=== PATIENT | female | born 1990 | race Caucasian/White ===

== ENCOUNTER 2023-08-01 07:33 | Inpatient (IN) | payer BC, SELFPAY ==
[2023-08-01] VITALS (24 sets, daily range): BP systolic 111–128; BP diastolic 63–80; PULSE 65–85; RESP 16–18; TEMP 36.4–37; O2SAT 94–100; BMI 29.2
[2023-08-01 08:19] LABS: Basophil# 0.05 X10^3/uL; Basophil% 0.4 % (0-1); Eosinophil# 0.02 X10^3/uL; Eosinophils% 0.1 % (0-5); Hematocrit 36.4 % (37-47); Hemoglobin 12.3 g/dL (12.0-15.0); Lymphocyte % 13.2 % (19-41); Mean Corp Hgb Conc 33.8 g/dL (32-36); Mean Corpuscular Hgb 29.3 pg (27.0-32.0); Mean Corpuscular Volume 86.7 fL (81-99); Mean Platelet Vol. 10.9 fl (6.2-12.0); Monocyte# 0.66 X10^3/uL; Monocyte% 4.8 % (0-10); NRBC Flagged by Analyzer 0 % (0-5); Neutrophil # 11.04 X10^3/uL (2.7-7.7); Neutrophil % 81.1 % (47-70); Platelet Count 191 K/mm3 (150-450); RBC Distribution Width SD 40.6 fl (35.1-43.9); White Blood Count 13.6 K/mm3 (4.4-11.0)
[2023-08-01 08:52] LABS: Syphilis Antibodies Non-reactive
--- NOTE | 2023-08-01 09:06 | EX.PCM.OBRPT ---
Maternal Data Information Final CIARA: 07/31/23 Gestational age: 40 1/7 Vaginal Delivery Maternal Presentation Maternal Presentation: Active Labor Operative Information Date of Procedure: 08/01/23 Pre-Operative Diagnosis: labor Post-Operative Diagnosis: same Surgery / Procedure Performed: Spontaneous Vaginal Delivery Type of Anesthesia: None Drain: - (none) Estimated Blood Loss: 200 Time of Delivery: 08:39 Findings Description of Procedure: A vigorous female was delivered CAMERON over an intact perineum. A loose nuchal cord x2 was easily reduced the remainder the infant was delivered with maternal pushing and gentle traction only in less than 15 seconds. The Pitocin infusion was initiated for active management of the third stage. The cord was clamped and cut after 1 minute. The infant was attended to by the waiting nursing staff. The placenta was delivered spontaneously and intact. The cervix and vagina were intact. Sponge and needle counts were correct. A vaginal sweep was completed by me. Presentation: CAMERON Amniotic Membrane Rupture Type: Spontaneous Amniotic Fluid Description: Lightly stained meconium Placental Delivery Description: Spontaneous Placenta Disposition: [facility] Cord Vessel Description: 3 Vessels Cord Entanglement: Around neck x 2, loose Nuchal Cord Compression: Without compression Cord Gases: ABG Infant A Gender: Female (1 minute): 8 (5 minute): 9 Delayed Cord Clamping: Yes Post Vaginal Delivery Medications Given After Delivery: IV Pitocin Episiotomy Description: None Laceration: None Complication Complications: None
[2023-08-01] MEDS: Ibuprofen 600 MG Tablet PO ×2 (10:59→17:06)
--- NOTE | 2023-08-01 12:13 | PCM.HP.OB ---
HPI - General General Date of Admission: 08/01/23 Date of Service: 08/01/23 Chief Complaint: labor HPI Narrative SEGUN DE LA CRUZ, is a 33 F 4 para 3 who presented at 40 1/7 weeks gestation in spontaneous labor. She denied any vaginal bleeding or leaking of fluid. is uncomplicated to date Maternal Data Information Final CIARA: 07/31/23 Gestational age: 40 1/7 PFSH PFSH Medical History no medical history Allergy/AdvReac Type Severity Reaction Status Date / Time No Known Allergies Allergy Verified 08/01/23 09:17 Family History no significant family his Surgical History no surgical history ROS Constitutional Constitutional: Denies fatigue, fever(s) or malaise Eyes Eyes: Denies change in vision ENT HEENT: Denies dizziness or headache(s) Cardiovascular Cardiovascular: Denies chest pain, dyspnea or lightheadedness Respiratory/Chest Respiratory/Chest: Denies cough or dyspnea Gastrointestinal Gastrointestinal: Denies change in bowel habits Genitourinary Genitourinary: Denies burning urination or genital lesions Integumentary Integumentary: Denies rash Neurologic Neurologic: Denies confusion, dizziness, headache(s), numbness or weakness Vital Signs Vital Signs Vital Signs: 08/01/23 07:14 08/01/23 07:14 08/01/23 07:18 Pulse Rate 74 Blood Pressure 122/78 H BP Systolic 122 BP Diastolic 78 Pulse Ox 100 08/01/23 07:18 08/01/23 07:19 08/01/23 07:19 Pulse Rate 78 69 Blood Pressure BP Systolic BP Diastolic Pulse Ox 100 08/01/23 08:14 08/01/23 08:14 08/01/23 08:15 Pulse Rate 83 82 Blood Pressure BP Systolic BP Diastolic Pulse Ox 94 08/01/23 08:15 08/01/23 08:55 08/01/23 08:55 Pulse Rate 70 Blood Pressure 113/69 BP Systolic 113 BP Diastolic 69 Pulse Ox 95 08/01/23 09:09 08/01/23 09:09 08/01/23 09:24 Pulse Rate 72 Blood Pressure 111/65 111/69 BP Systolic 111 111 BP Diastolic 65 69 Pulse Ox 08/01/23 09:24 08/01/23 09:39 08/01/23 09:39 Pulse Rate 68 72 Blood Pressure 112/71 BP Systolic 112 BP Diastolic 71 Pulse Ox 08/01/23 09:54 08/01/23 09:54 08/01/23 10:09 Pulse Rate 69 Blood Pressure 120/79 128/80 H BP Systolic 120 128 BP Diastolic 79 80 Pulse Ox 08/01/23 10:09 08/01/23 10:24 08/01/23 10:24 Pulse Rate 69 69 Blood Pressure 116/76 BP Systolic 116 BP Diastolic 76 Pulse Ox 08/01/23 10:39 08/01/23 10:39 Pulse Rate 70 Blood Pressure 121/79 H BP Systolic 121 BP Diastolic 79 Pulse Ox Weight Weight: 92.533 kg Body Mass Index (BMI) 29.2 Physical Exam Const alert and no apparent distress General Appearance: cooperative HEENT normocephalic Resp normal respiratory effort Cardio regular rate GI soft to palpation GI Narrative: gravid, nontender, appropriate for gestational age Extremity no calf tenderness General Extremity: edema Skin no wounds Rashes: No rashes noted Psych activity/motor behavior normal Labs Labs Labs: Blood Type B POSITIVE Antibody Screen NEGATIVE Hct 36.4 % (37-47) L Hgb 12.3 g/dL (12.0-15.0) Syphilis Total Ab Non-reactive Assessment & Plan (1) Spontaneous onset of labor: PLAN: Spontaneous onset of labor. Estimated weight is less than 4500 g clinically and pelvis clinically adequate for her to expect vaginal delivery. May have routine pain management measures in labor if desires. (2) 40 weeks gestation of :
[2023-08-02] MEDS: Ibuprofen 600 MG Tablet PO (00:36)
[2023-08-02 05:15] VITALS: BP 112/64; PULSE 65; PULSE 67; RESP 16; TEMP 36.3; O2SAT 97
[2023-08-02 09:10] VITALS: BP 102/66; PULSE 88; RESP 18; TEMP 36.8; O2SAT 96
[2023-08-02 09:25] VITALS: BP 96/65; PULSE 84; O2SAT 95
[2023-08-02 09:27] VITALS: BP 102/66; PULSE 81
--- NOTE | 2023-08-02 09:30 | PCM.PN.BLA ---
Progress Note Pain well controlled with average lochia. Assessment & Plan Assessment/Plan (1) (spontaneous vaginal delivery): PLAN: day #1 status post vaginal delivery. is breast-feeding and doing well. Patient is doing well and desires discharge home.
--- NOTE | 2023-08-02 09:36 | DS.PCM_ITS ---
Providers Date of Admission: 08/01/23 Primary Care Physician: Marni Primary Care Phys Reason For Visit: VAGINAL DELIVERY Diagnosis Discharge Diagnosis (1) (spontaneous vaginal delivery): Status: Acute Code(s): O80 - Encounter for full-term uncomplicated delivery Plan: day #1 status post vaginal delivery. is breast-feeding and doing well. Patient is doing well and desires discharge home. Medications at Discharge Home Medications docusate sodium 100 mg capsule (DOK) 100 mg PO BID PRN PRN constipation 20 days #30 CAPSULES 08/02/23 ibuprofen 600 mg tablet 600 mg PO Q6H PRN Pain 20 days #60 TABLETS 08/02/23 Hospital Course Operations None Summary of Care Provided Minutes Spent on Discharge: 13 Hospital Course: Patient admitted for spontaneous labor. She had an uneventful vaginal delivery on 08/01/2023. By 12 08/02/2023 she desired discharge home with routine instructions and follow-up. Weight / BMI Weight Weight: 92.533 kg Body Mass Index (BMI) 29.2 ABG / Lab / Microbiology Data 08/01/23 08:10 D/C Instructions May resume sexual activity in: 6 weeks Please Follow Up With: Kinsey eHrnandez MD When: Follow-up in our office in 1-2 in 6 weeks or as needed. Call [phone] or send a [employer] message. Meaningful Use Info Meaningful Use Diagnoses (Choose all that apply): None applicable Discharge Plan Admission Admit Date/Time: 08/01/23 07:33 Primary Reason for Your Visit: Vaginal deliery Attending Provider: Kinsey Hernandez Primary Care Provider: Care Marni Spencer Primary Discharge Orders/Prescriptions Prescriptions: New docusate sodium [DOK] 100 mg capsule 100 mg PO BID PRN PRN (Reason: constipation) 20 Days Qty: 30 1RF ibuprofen [ibuprofen] 600 mg tablet 600 mg PO Q6H PRN (Reason: Pain) 20 Days Qty: 60 1RF Referrals / Follow Up: Care PhysicianMarni Primary [Primary Care Provider] - Disposition Disposition (needs filled in before D/C Order can be placed): Home, Self Care
== END 2023-08-02 11:00 | disposition home or self-care (01) | DRG 807 ==
LOC: WPOUT 07:34 → WP 07:35
PROVIDERS: Admitting Provider Obstetrics & Gynecology; Referring Provider Obstetrics & Gynecology; Visit Provider Obstetrics & Gynecology
DX: O69.2XX0 Labor and delivery complicated by other cord entanglement, with compression, not applicable or unspecified (principal); Z37.0 Single live birth; O77.0 Labor and delivery complicated by meconium in amniotic fluid; Z3A.40 40 weeks gestation of pregnancy
CPT/HCPCS: 59025; 59050; 85025; 86780; 86850; 86900; 86901; 99221; G0378

== ENCOUNTER 2025-11-14 01:42 | Inpatient (IN) | payer BC, SELFPAY ==
[2025-11-14] VITALS (29 sets, daily range): BP systolic 107–125; BP diastolic 58–85; PULSE 66–88; RESP 14–16; TEMP 36.7; O2SAT 91–100; BMI 30.7
--- OUTSIDE RECORDS SUMMARY | 2025-11-14 01:23 | XMS RPT_ITS | CCD ---
Author Organization [facility] Care Team Providers Care Labor Mediator Name Role Phone Unavailable Primary Care Provider JUNIOR Bonilla DO Primary Care Physician [phone] JUNIOR GRANT DO Attending Unavailable JUNIOR GRANT DO Primary Care Unavailable Unavailable Primary Care Provider Unavailtacos e Care Physician, No Primary Primary Care Unava ilable Elie Urias Attending Unavailable Elie Urias Admitting Unavailable KALIE ELLINGTON Referring Unavailable SHERLEY ADAMSON Referring Unavailable VAL FORD Referring Unavailable JENNIFER LUTZ Attending Unavailable VAL FORD Referring Unavailable ELIE URIAS Attending Unavailable JENNIFER LUTZ Referring Unavailable KALIE ELLINGTON Attending Unavailable MINDY DELVALLE Attending Unavailable SHERLEY ADAMSON Attending Unavailable SHERLEY ADAMSON Referring Unavailable ELIE URIAS Attending Unavailable SHERLEY ADAMSON Referring Unavailable KALIE ELLINGTON Attending Unavailable Medications Current Medications Medication Drug Class(es) Dates Sig (Normalized) Sig (Original) docusate sodium 100 mg oral capsule (4 sources) Start: 08-02-2023 take 1 capsule by mouth twice daily as needed Docusate Sodium (Dok) 100 mg capsule Active 100 MG PO TWICE DAILY NEEDED August 02, 2023 12:00am Start: 09-13-2014 End: 01-23-2023 take 1 capsule by mouth every twelve hours as needed for constipation and constipation docusate sodium (COLACE) 100 mg capsule Indications: Constipation Take 1 capsule by mouth twice daily as needed. 60 capsule 2 09/13/2014 01/23/2023 Discontinued Comment on above: Take 1 capsule by [facility] twice daily as needed. ibuprofen 600 mg oral tablet (1 source) Nonsteroidal Anti-inflammatory Drug Start: 08-02-2023 take 600 mg by mouth every six hours Ibuprofen Active 600 MG PO EVERY 6 HOURS 60 August 02, 2023 12:00am lysine 1000 mg oral tablet (20 sources) Start: 12-01-2024 take 1 tablet by mouth twice daily lysine 1000 mg oral tablet See Instructions, 1 tab(s) Oral BID, 0 Refill(s) Start Date: 12/01/24 Status: Ordered Repeat number: 1 LYSINE ORAL Take by mouth. Active LYSINE ORAL Take by mouth. 0 Active Comment on above: Take by mouth. metroNIDAZOLE 500 mg oral tablet (1 source) Nitroimidazole Antimicrobial Start: 01-27-20 End: 02-03-20 take 1 tablet by mouth twice daily metroNIDAZOLE (FLAGYL) 500 mg tablet Indications: BV (bacterial vaginosis) Take 1 tablet by mouth twice daily for 7 days. 14 tablet 0 01/26/2023 02/02/2023 Active Comment on above: Take 1 tablet by mayo th twice daily for 7 days. multivitamin (CLASSIC ) 28 mg iron- 800 mcg tab(s) (20 sources) take 1 tablet by mouth once daily multivitamin (CLASSIC ) 28 mg iron- 800 mcg tab(s) Take 1 tablet by mouth once daily. Active take 1 tablet by mouth once miriam y multivitamin (CLASSIC ) 28 mg iron- 800 mcg tab(s) Take 1 tablet by mouth once daily. 0 Active Comment on above: Take 1 tablet by mayo th once daily. valACYclovir 500 mg oral tablet (5 sources) Herpesvirus Nucleoside Analog DNA Polymerase Inhibitor, Herpes Simplex Virus Nucleoside Analog DNA Polymerase Inhibitor, Herpes Zoster Virus Nucleoside Analog DNA Polymerase Inhibitor Start: End: take 1 tablet by mouth twice daily valACYclovir (VALTREX) 500 mg tablet Take 1 tablet by mouth two times a day. FOR 5 DAYS. 60 tablet 3 06/22/2025 10/20/2025 Active Vitafusion (1 source) Start: 5 Vitafusion Chewed, qDay, 0 Refill(s) Start Date: 12/01/24 Status: Ordered Repeat number: 1 Completed/Discontinued Medications Medication Drug Class(es) Dates Sig (Normalized) Sig (Original) aspirin 81 mg delayed release oral tablet (3 sources) Platelet Aggregation Inhibitor, Nonsteroidal Anti-inflammatory Drug Start: 03-31-2025 End: 06-02-2025 take 1 tablet by mouth once daily aspirin, enteric coated (ECOTRIN LOW STRENGTH) 81 mg EC tablet Indications: with uncertain dates, antepartum (HCC) Take 1 tablet by mouth once daily. 90 tablet 3 03/31/2025 06/02/2025 Discontinued (Other) Problems Active Problems Problem Classification Problem Date Documented Date Episodic/Chronic Immunizations and screening for infectious disease (10 sources) Patient encounter status; Translations: [Encounter for screening for human papillomavirus (HPV)] Episodic Inflammatory diseases of female pelvic organs (1 source) Bacterial vaginosis; Translations: [Acute vaginitis] Episodic Lymphadenitis (3 sources) Lymphadenopathy; Translations: [Enlarged lymph nodes, unspecified] Onset: 12-01-2024 12-01-2024 Episodic Malaise and fatigue (1 source) Malaise and fatigue; Translations: [Other malaise] 09-19-2024 Episodic Nonmalignant breast conditions (3 sources) Mastodynia; Translations: [Mastodynia] Onset: 07-04-2025 06-02-2025 Episodic Other female genital disorders (1 source) Pruritus of vagina; Translations: [Other specified noninflammatory disorders of vagina] Episodic Other and delivery including normal (20 sources) ; Translations: [Encounter for supervision of normal , unspecified, unspecified trimester] Onset: 01-22-2023 Resolved: 03-31-2025 Episodic Other screening for suspected conditions (not mental disorders or infectious disease) (2 sources) Encounter for screening for diabetes mellitus; Translations: [Encounter for screening for malformations] Onset: 07-21-2025 Episodic Prolonged (1 source) Gestation period, 41 weeks; Translations: [Post-term ] 07-31-2023 Episodic Residual codes; unclassified (5 sources) Gestation period, 16 weeks; Translations: [16 weeks gestation of ] Episodic Residual codes; unclassified (1 source) Gestation period, 20 weeks; Translations: [20 weeks gestation of ] Episodic Residual codes; unclassified (1 source) Gestation period, 24 weeks; Translations: [24 weeks gestation of ] Episodic Residual codes; unclassified (1 source) Gestation period, 29 weeks; Translations: [29 weeks gestation of ] Episodic Residual codes; unclassified (1 source) Gestation period, 34 weeks; Translations: [34 weeks gestation of ] 06-25-2023 Episodic Residual codes; unclassified (1 source) Gestation period, 36 weeks; Translations: [36 weeks gestation of ] 07-09-2023 Episodic Residual codes; unclassified (2 sources) Gestation period, 38 weeks; Translations: [38 weeks gestation of ] 07-17-2023 Episodic Residual codes; unclassified (1 source) Gestation period, 39 weeks; Translations: [39 weeks gestation of ] 07-30-2023 Episodic Residual codes; unclassified (1 source) Gestation period, 40 weeks; Translations: [40 weeks gestation of ] 08-01-2023 Episodic Residual codes; unclassified (1 source) 40 weeks gestation of ; Translations: [ state, incidental] 08-02-2023 Episodic Residual codes; unclassified (1 source) Gestation period, 12 weeks; Translations: [12 weeks gestation of ] 05-04-2025 Episodic Residual codes; unclassified (1 source) Gestation period, 21 weeks; Translations: [21 weeks gestation of ] 07-04-2025 Episodic Residual codes; unclassified (2 sources) Gestation period, 23 weeks; Translations: [23 weeks gestation of ] 07-21-2025 Episodic Residual codes; unclassified (1 source) 32 weeks gestation of ; Translations: [32 weeks gestation of (HCC)] Onset: 09-22-2025 Episodic Residual codes; unclassified (1 source) 30 weeks gestation of ; Translations: [30 weeks gestation of (HCC)] Onset: 09-08-2025 Episodic Residual codes; unclassified (1 source) 27 weeks gestation of ; Translations: [27 weeks gestation of (HCC)] Onset: 08-18-2025 Episodic Residual codes; unclassified (1 source) 23 weeks gestation of ; Translations: [23 weeks gestation of (HCC)] Onset: 07-21-2025 Episodic Residual codes; unclassified (1 source) 16 weeks gestation of ; Translations: [16 weeks gestation of (HCC)] Onset: 07-04-2025 Episodic Unclassified (2 sources) Spontaneous onset of labor; Translations: [Spontaneous onset of labor] 08-01-2023 Unclassified (1 source) Stool finding 12-01-2024 Unclassified (8 sources) [facility] Education - COMMON Onset: 03-31-2025 03-31-2025 Unclassified (8 sources) Education - [place] Onset: 03-31-2025 03-31-2025 Past or Other Problems Problem Classification Problem Date Documented Da te Episodic/Chronic Residual codes; unclassified (20 sources) Family history of hereditary disease; Translations: [Family history of other specified conditions] Onset: 01-22-2023 Episodic Residual codes; unclassified (1 source) 12 weeks gestation of ; Translations: [12 weeks gestation of (HCC)] Onset: 05-01-2025 Episodic Unclassified (2 sources) Patient encounter status 12-01-2024 Unclassified (2 sources) Breast pain, left 06-02-2025 Results Test Name Value Interpretation Reference Range Facil it CBC panel Auto (Bld)on 08-18 Erythrocyte distribution width (RBC) [Ratio] 13.2 % Normal 11.5-15.0 [facility] Comment on above: Order Comment: Raciel diaz Type: BLOOD SPECIMEN Ordering Facility: [facility] Address: [address] [place] [address] Performed By: #### 5 8410-2 #### [facility] CLIA [id number] [address] [place] [address] [place] Hematocrit (Bld) [Volume fraction] 34.4 % Low 36.0-46.0 [facility] Comment on above: Order Comment: Raciel diaz Type: BLOOD SPECIMEN Ordering Facility: [facility] Address: [address] [place] [address] Performed By: #### 5 8410-2 #### [facility] CLIA [id number] [address] [place] [address] [place] Hemoglobin (Bld) [Mass/Vol] 11.9 g/dL Normal 11.5-15.5 [facility] Comment on above: Order Comment: Raciel diaz Type: BLOOD SPECIMEN Ordering Facility: [facility] Address: [address] [place] [address] Performed By: #### 5 8410-2 #### [facility] CLIA [id number] [address] [place] [address] [place] MCH (RBC) [Entitic mass] 29.5 pg Normal 26.0-34.0 [facility] Comment on above: Order Comment: Speci men Type: BLOOD SPECIMEN Ordering Facility: [facility] Address: [address] [place] [address] Performed By: #### 5 8410-2 #### [facility] CLIA [id number] [address] [place] [address] [place] MCHC (RBC) [Mass/Vol] 34.6 g/dL Normal 30.5-36.0 [facility] Comment on above: Order Comment: Speci men Type: BLOOD SPECIMEN Ordering Facility: [facility] Address: [address] [place] [address] Performed By: #### 5 8410-2 #### [facility] CLIA [id number] [address] [place] [address] [place] MCV (RBC) [Entitic vol] 85.4 fL Normal 80.0-100.0 [facility] Comment on above: Order Comment: Speci men Type: BLOOD SPECIMEN Ordering Facility: [facility] Address: [address] [place] [address] Performed By: #### 5 8410-2 #### [facility] CLIA [id number] [address] [place] [address] [place] Nucleated RBC (Bld) [#/Vol] 10*3/uL Normal <0.01 [facility] Comment on above: Order Comment: Speci men Type: BLOOD SPECIMEN Ordering Facility: [facility] Address: [address] [place] [address] Performed By: #### 5 8410-2 #### [facility] CLIA [id number] [address] [place] [address] [place] Platelet mean volume (Bld) [Entitic vol] 10.8 fL Normal 9.0-12.7 [facility] Comment on above: Order Comment: Speci men Type: BLOOD SPECIMEN Ordering Facility: [facility] Address: [address] [place] [address] Performed By: #### 5 8410-2 #### [facility] CLIA [id number] [address] [place] [address] [place] Platelets (Bld) [#/Vol] 260 10*3/uL Normal 150-400 [facility] Comment on above: Order Comment: Speci men Type: BLOOD SPECIMEN Ordering Facility: [facility] Address: [address] [place] [address] Performed By: #### 5 8410-2 #### [facility] CLIA [id number] [address] [place] [address] [place] RBC (Bld) [#/Vol] 4.03 10*6/uL Normal 3.90-5.20 [facility] Comment on above: Order Comment: Speci men Type: BLOOD SPECIMEN Ordering Facility: [facility] Address: [address] [place] [address] Performed By: #### 5 8410-2 #### [facility] CLIA [id number] [address] [place] [address] [place] WBC (Bld) [#/Vol] 11.48 10*3/uL High 3.70-11.00 [facility] Comment on above: Order Comment: Speci men Type: BLOOD SPECIMEN Ordering Facility: [facility] Address: [address] [place] [address] Performed By: #### 5 8410-2 #### [facility] CLIA [id number] [address] [place] [address] [place] GESTATIONAL GLUCOSE SCREEN, 1-HOUR, 50 GRAM, NON-FASTINGon 08-18-2025 Glucose [Mass/Vol] 122 mg/dL Normal 74-134 [facility] Comment on above: Order Comment: Speci men Type: BLOOD SPECIMEN Ordering Facility: [facility] Address: [address] [place] [address] Result Comment: [facility] Congress of Obstetricians and Gynecologists (Jazlyn/Aissatou) guidelines state a gestational diabetes mellitus positive screen is made, in women not previously diagnosed with overt diabetes, when the 1 hr plasma glucose level is equal to or above 140 mg/dL. The [facility] [employer] [facility] [place] recommends a 135 mg/dL cutoff. Performed By: #### G LTGST #### [facility] CLIA [id number] [address] [place] [address] [place] Reagin and Treponema pallidu m IgG and IgM [Interp]on 08-18-2025 T. pallidum IgG+IgM IA Ql (S) Non-Reactive Normal Nonreactive [facility] Comment on above: Order Comment: Speci men Type: BLOOD SPECIMEN Ordering Facility: [facility] Address: [address] [place] [address] Performed By: #### 5 5454-3 #### [facility] CLIA [id number] [address] [place] [address] [place] Reagin+T pallidum IgG+IgM Se rPl-Impon 08-18-2025 Reagin and Treponema pallidum IgG and IgM [Interp] Cannot exclude recent Treponemal infection if specimen collected within 7-10 days after appearance of suspect lesions or 2-3 weeks after an exposure. Clinical correlation is required. Normal [facility] Comment on above: Order Comment: Speci men Type: BLOOD SPECIMEN Ordering Facility: [facility] Address: [address] [place] [address] Performed By: #### 5 5454-3 #### [facility] CLIA [id number] [address] [place], [place] [address] [place] Examination level ultrasound on 07-21-2025 [facility] Radiology Study observation (narrative) [facility] [place]ota 07-06-2025 CNPN Telephone (OBGYWM) SEGUN MUSA ([id number]) 1990 F Date Time Provider Department 07/06/25 KALIE ELLINGTON During your visit today, we recorded the following information about you: Marilee No 07/06/2025 8:15 AM Signed Called pt to suggest HIRAM appt for this week, last HIRAM appt 06/02 patient feels that its not necessary and refuse appt. Daphne Perez RN 07/06/2025 9:08 AM Signed FYI see note below. Next scheduled for f/u anatomy and OB visit with CP on 07/21/25. Daphne Perez RN Allergies As of Date: 07/06/2025 (No Known Allergies) Date Reviewed: 07/04/2025 Reviewed by: Lynn Stanley RN - Fully Assessed Reason for Visit: Appointment [[id number]] Prescriptions as of 07/06/2025 - valACYclovir (VALTREX) 500 mg tablet Take 1 tablet by mouth two times a day. FOR 5 DAYS. - multivitamin (CLASSIC ) 28 mg iron- 800 mcg tab(s) Take 1 tablet by mouth once daily. - LYSINE ORAL Take by mouth. Problem List As Of Date 07/06/2025 Noted Resolved Family history of genetic disease [Z84.89] 01/22/2023 with care elsewhere, antepar*01/22/2023 03/31/2025 Encounter for supervision of other normal pregn*03/31/2025 Encounter Status:Closed by MARILEE NO on 07/06/25 Normal [facility] Examination level ultrasound on 07-04-2025 Indication Standard anatomic survey Impression The patient is referred for a standard anatomic survey. - Single, live, intrauterine . - biometry is consistent with the established gestational age. - No malformations were visualized on a standard anatomic survey, although some anatomical structures were suboptimally seen as detailed below. - The amniotic fluid volume is normal amount. - The placenta is posterior, fundal. - The Transabdominal cervical length measures 43.5 mm with no evidence of funneling or other dynamic changes. - Not all structural malformations can be detected by ultrasound examination. Recommendations - Completion of anatomy in 2-3 weeks - Additional follow up as clinically indicated. Maternal Assessment Height 178 cm Height (ft) 5 ft Height (in) 10 in Physical Exam Initial weight (lb) 191 lb Initial BMI 27.41 kg/m Maternal assessment other: 5 Para 4 Method Transabdominal ultrasound examination. View: Suboptimal view: limited by position Iqbal . Number of fetuses: 1 Dating LMP on: 02/05/2025 GA by LMP 21 w + 2 d CIARA by LMP: 11/12/2025 GA by prior assessment 21 w + 2 d CIARA by prior assessment: 11/12/2025 Ultrasound examination on: 07/04/2025 GA by U/S based upon: AC, BPD, Femur, HC GA by U/S 21 w + 2 d CIARA by U/S: 11/12/2025 Assigned: based on stated CIARA, selected on 07/04/2025 Assigned GA 21 w + 2 d Assigned CIARA: 11/12/2025 General Evaluation Cardiac activity present. FHR 149 bpm. movements: present. Presentation: transverse head right Placenta: Placental site: posterior, fundal Umbilical cord: Cord vessels: 3 vessel cord Amniotic fluid: Amount of AF: normal amount. MVP 5.5 cm Growth Overview Exam date GA BPD (mm) HC (mm) AC (mm) FL (mm) HL (mm) EFW (g) 07/04/2025 21w 2d 49.3 33% 189.5 48% 169.8 65% 34.6 50% 33.9 55% 424 52% Biometry Standard BPD 49.3 mm 20w 6d 33% Hadlock OFD 68.0 mm 21w 2d 75% Nicolaides HC 189.5 mm 21w 2d 48% Krupa Cerebellum tr 22.2 mm 20w 5d 48% Hill Nuchal fold 4.0 mm AC 169.8 mm 22w 0d 65% Hadlock Femur 34.6 mm 21w 1d 50% Krupa Humerus 33.9 mm 21w 4d 55% Krupa EFW 424 g 21w 2d 52% Hadlock EFW (lb) 0 lb EFW (oz) 15 oz EFW by: Hadlock (HC-AC-FL) Extended Sweet Pickled Fruit Maker 6.9 mm CM 5.1 mm 43% Nicolaides Extremities / Bony Struc FL / HC 0.18 Other Structures FHR 149 bpm Anatomy Cranium: normal Lateral ventricles: normal Choroid plexus: normal Midline falx: normal Cavum septi pellucidi: normal Cerebellum: normal Cisterna magna: normal Head / Neck Vermis: Normal but not required for a standard anatomy exam Neck: Normal but not required for a standard anatomy exam Nuchal fold: Normal but not required for a standard anatomy exam Lips: normal Profile: Normal but not required for a standard anatomy exam Nose: Normal but not required for a standard anatomy exam Face Maxilla: Normal but not required for a standard anatomy exam Mandible: Normal but not required for a standard anatomy exam Orbits: Normal but not required for a standard anatomy exam Lens: Normal but not required for a standard anatomy exam 4-chamber view: normal RVOT view: normal LVOT view: normal 3-vessel view: normal 5-[id number] view: normal Heart / Thorax Situs: situs solitus (normal) Aortic arch view: Normal but not required for a standard anatomy exam SVC: Normal but not required for a standard anatomy exam IVC: Normal but not required for a standard anatomy exam Cardiac axis: normal Rt lung: Normal but not required for a standard anatomy exam Lt lung: Normal but not required for a standard anatomy exam Diaphragm: normal Cord insertion: normal Stomach: normal Kidneys: normal Bladder: normal Genitals: normal Abdomen Abdom. wall: normal Cervical spine: suboptimally visualized Thoracic spine: suboptimally visualized Lumbar spine: suboptimally visualized Sacral spine: suboptimally visualized Arms: normal Legs: normal Rt upper arm: normal Rt forearm: normal Rt hand: normal Rt fingers: normal Lt upper arm: normal Lt forearm: normal Lt hand: normal Lt fingers: normal Rt upper leg: normal Rt lower leg: normal Rt foot: normal Lt upper leg: normal Lt lower leg: normal Lt foot: normal Gender: Unspecified Wants to know sex: no Maternal Structures Uterus / Cervix Uterus: Visualized Cervix: Visualized Approach: Transabdominal Cervical length 43.5 mm Other: Patient declined transvaginal ultrasound for cervical length. Ovaries / Tubes / Adnexa Rt ovary: Visualized Lt ovary: Visualized Performed By: Silvina Barraza RDMS, RVT Read By: Val Ford M.D. MATERNAL MEDICINE [facility] Radiology Study observation (narrative) [facility] US BREAST LTD LTon 07-04 [facility] US BREAST LTD LT * * *Final Report* * * DATE OF EXAM: Jul 04 2025 2:39PM [facility] [id number] - [facility] US BREAST LTD LT / PROCEDURE REASON: multiple diagnoses * * * * Physician Interpretation * * * * [place] [address] #[id number] - [facility] US BREAST LTD LT HISTORY: 35 year-old patient presents for diagnostic evaluation of focal pain in the left breast. Patient states no personal history of breast cancer. The patient has a family history of breast cancer. COMPARISON STUDIES: No prior imaging studies are available for comparison. ULTRASOUND TECHNIQUE: Targeted ultrasound of the indicated area was performed. [place] scale images were saved. ULTRASOUND FINDINGS: There are no suspicious findings in the imaged area. IMPRESSION: There are no suspicious sonographic findings in the imaged area. No sonographic abnormality corresponding with the area areas of pain in the left breast. Further management should be based on clinical assessment. Return to annual screening mammogram is recommended. Annual mammogram will be due at age 42. BI-RADS Category 1: Negative Interpreting Radiologist: Francisco Hernandez M.D. Electronically signed on: 07/04/2025 [employer] Waste Chopper: GUILLERMO Transcribe Date/Time: Jul 04 2025 2:23P Dictated by : FRANCISCO HERNANDEZ MD This examination was interpreted and the report reviewed and electronically signed by: FRANCISCO HERNANDEZ MD on Jul 04 2025 2:42PM EST [id number] Normal [facility] US Breast - left limitedon 0 07-04-2025 IMPRESSION: There are no suspicious sonographic findings in the imaged area. No sonographic abnormality corresponding with the area areas of pain in the left breast. Further management should be based on clinical assessment. Return to annual screening mammogram is recommended. Annual mammogram will be due at age 42. BI-RADS Category 1: Negative Interpreting Radiologist: Francisco Hernandez M.D. Electronically signed on: 07/04/2025 [employer] Chopper: GUILLERMO Transcribe Date/Time: Jul 04 2025 2:23P Dictated by : FRANCISCO HERNANDEZ MD This examination was interpreted and the report reviewed and electronically signed by: FRANCISCO HERNANDEZ MD on Jul 04 2025 2:42PM [facility] DIVISION OF RADIOLOGY * * *Final Report* * * DATE OF EXAM: Jul 04 2025 2:39PM [facility] [id number] - [employer] BREAST LTD LT / PROCEDURE REASON: multiple diagnoses * * * * Physician Interpretation * * * * [place] [address] #[id number] - [employer] BREAST [employer] LT HISTORY: 35 year-old patient presents for diagnostic evaluation of focal pain in the left breast. Patient states no personal history of breast cancer. The patient has a family history of breast cancer. COMPARISON STUDIES: No prior imaging studies are available for comparison. ULTRASOUND TECHNIQUE: Targeted ultrasound of the indicated area was performed. [place] scale images were saved. ULTRASOUND FINDINGS: There are no suspicious findings in the imaged area. DIVISION OF RADIOLOGY Provider, [facility] - 07/04/2025 * * *Final Report* * * DATE OF EXAM: Jul 04 2025 2:39PM [facility] 0593 [employer] BREAST Liibook LT / PROCEDURE REASON: multiple diagnoses * * * * Physician Interpretation * * * * [place] [address] #[id number] - [facility] [employer] BREAST Liibook LT HISTORY: 35 year-old patient presents for diagnostic evaluation of focal pain in the left breast. Patient states no personal history of breast cancer. The patient has a family history of breast cancer. COMPARISON STUDIES: No prior imaging studies are available for comparison. ULTRASOUND TECHNIQUE: Targeted ultrasound of the indicated area was performed. [place] scale images were saved. ULTRASOUND FINDINGS: There are no suspicious findings in the imaged area. IMPRESSION IMPRESSION: There are no suspicious sonographic findings in the imaged area. No sonographic abnormality corresponding with the area areas of pain in the left breast. Further management should be based on clinical assessment. Return to annual screening mammogram is recommended. Annual mammogram will be due at age 42. BI-RADS Category 1: Negative Interpreting Radiologist: Francisco Hernandez M.D. Electronically signed on: 07/04/2025 [employer] Batting Waste Chopper: GUILLERMO Transcribe Date/Time: Jul 04 2025 2:23P Dictated by : FRANCISCO HERNANDEZ MD This examination was interpreted and the report reviewed and electronically signed by: FRANCISCO HERNANDEZ MD on Jul 04 2025 2:42PM EST [facility] Radiology Study observation (narrative) [facility] US Breast - left limitedOrde red By: Ccf Provider on 07-04-2025 [facility] CBC W Auto Differential pane l (Bld)on 05-01-2025 Basophils (Bld) [#/Vol] 0.05 10*3/uL Normal <0.11 [facility] Comment on above: Order Comment: Speci men Type: BLOOD SPECIMEN Ordering Facility: [facility] Address: [address] [place] [address] Performed By: #### 5 7021-8 #### [facility] CLIA [id number] [address] [place] [address] [place] Basophils/100 WBC (Bld) 0.4 % Normal [facility] Comment on above: Order Comment: Speci men Type: BLOOD SPECIMEN Ordering Facility: [facility] Address: [address] [place] [address] Performed By: #### 5 7021-8 #### [facility] CLIA [id number] [address] [place] [address] [place] Differential cell count method Nom (Bld) Auto Normal [facility] Comment on above: Order Comment: Speci men Type: BLOOD SPECIMEN Ordering Facility: [facility] Address: [address] [place] [address] Performed By: #### 5 7021-8 #### [facility] CLIA [id number] [address] [place] [address] [place] Eosinophils (Bld) [#/Vol] 0.22 10*3/uL Normal <0.46 [facility] Comment on above: Order Comment: Speci men Type: BLOOD SPECIMEN Ordering Facility: [facility] Address: [address] [place] [address] Performed By: #### 5 7021-8 #### [facility] CLIA [id number] [address] [place] [address] [place] Eosinophils/100 WBC (Bld) 1.7 % Normal [facility] Comment on above: Order Comment: Speci men Type: BLOOD SPECIMEN Ordering Facility: [facility] Address: [address] [place] [address] Performed By: #### 5 7021-8 #### [facility] CLIA [id number] [address] [place] [address] [place] Erythrocyte distribution width (RBC) [Ratio] 14.0 % Normal 11.5-15.0 [facility] Comment on above: Order Comment: Speci men Type: BLOOD SPECIMEN Ordering Facility: [facility] Address: [address] [place] [address] Performed By: #### 5 7021-8 #### [facility] CLIA [id number] [address] [place] [address] [place] Hematocrit (Bld) [Volume fraction] 37.0 % Normal 36.0-46.0 [facility] Comment on above: Order Comment: Speci men Type: BLOOD SPECIMEN Ordering Facility: [facility] Address: [address] [place] [address] Performed By: #### 5 7021-8 #### [facility] CLIA [id number] [address] [place] [address] [place] Hemoglobin (Bld) [Mass/Vol] 12.2 g/dL Normal 11.5-15.5 [facility] Comment on above: Order Comment: Speci men Type: BLOOD SPECIMEN Ordering Facility: [facility] Address: [address] [place] [address] Performed By: #### 5 7021-8 #### [facility] CLIA [id number] [address] [place] [address] [place] Immature granulocytes (Bld) [#/Vol] 0.05 10*3/uL Normal <0.10 [facility] Comment on above: Order Comment: Speci men Type: BLOOD SPECIMEN Ordering Facility: [facility] Address: [address] [place] [address] Performed By: #### 5 7021-8 #### [facility] CLIA [id number] [address] [place] [address] [place] Immature granulocytes/100 WBC (Bld) 0.4 % Normal [facility] Comment on above: Order Comment: Speci men Type: BLOOD SPECIMEN Ordering Facility: [facility] Address: [address] [place] [address] Performed By: #### 5 7021-8 #### [facility] CLIA [id number] [address] [place] [address] [place] Lymphocytes (Bld) [#/Vol] 2.51 10*3/uL Normal 1.00-4.00 [facility] Comment on above: Order Comment: Speci men Type: BLOOD SPECIMEN Ordering Facility: [facility] Address: [address] [place] [address] Performed By: #### 5 7021-8 #### [facility] CLIA [id number] [address] [place] [address] [place] Lymphocytes/100 WBC (Bld) 19.4 % Normal [facility] Comment on above: Order Comment: Speci men Type: BLOOD SPECIMEN Ordering Facility: [facility] Address: [address] [place] [address] Performed By: #### 5 7021-8 #### [facility] CLIA [id number] [address] [place] [address] [place] MCH (RBC) [Entitic mass] 29.1 pg Normal 26.0-34.0 [facility] Comment on above: Order Comment: Speci men Type: BLOOD SPECIMEN Ordering Facility: [facility] Address: [address] [place] [address] Performed By: #### 5 7021-8 #### [facility] CLIA [id number] [address] [place] [address] [place] MCHC (RBC) [Mass/Vol] 33.0 g/dL Normal 30.5-36.0 [facility] Comment on above: Order Comment: Speci men Type: BLOOD SPECIMEN Ordering Facility: [facility] Address: [address] [place] [address] Performed By: #### 5 7021-8 #### [facility] CLIA [id number] [address] [place] [address] [place] MCV (RBC) [Entitic vol] 88.3 fL Normal 80.0-100.0 [facility] Comment on above: Order Comment: Speci men Type: BLOOD SPECIMEN Ordering Facility: [facility] Address: [address] [place] [address] Performed By: #### 5 7021-8 #### [facility] CLIA [id number] [address] [place] [address] [place] Monocytes (Bld) [#/Vol] 0.64 10*3/uL Normal <0.87 [facility] Comment on above: Order Comment: Speci men Type: BLOOD SPECIMEN Ordering Facility: [facility] Address: [address] [place] [address] Performed By: #### 5 7021-8 #### [facility] CLIA [id number] [address] [place] [address] [place] Monocytes/100 WBC (Bld) 4.9 % Normal [facility] Comment on above: Order Comment: Speci men Type: BLOOD SPECIMEN Ordering Facility: [facility] Address: [address] [place] [address] Performed By: #### 5 7021-8 #### [facility] CLIA [id number] [address] [place] [address] [place] Neutrophils (Bld) [#/Vol] 9.48 10*3/uL High 1.45-7.50 [facility] Comment on above: Order Comment: Speci men Type: BLOOD SPECIMEN Ordering Facility: [facility] Address: [address] [place] [address] Performed By: #### 5 7021-8 #### [facility] CLIA [id number] [address] [place] [address] [place] Neutrophils/100 WBC (Bld) 73.2 % Normal [facility] Comment on above: Order Comment: Speci men Type: BLOOD SPECIMEN Ordering Facility: [facility] Address: [address] [place] [address] Performed By: #### 5 7021-8 #### [facility] CLIA [id number] [address] [place] [address] [place] Nucleated RBC (Bld) [#/Vol] 10*3/uL Normal <0.01 [facility] Comment on above: Order Comment: Speci men Type: BLOOD SPECIMEN Ordering Facility: [facility] Address: [address] [place] [address] Performed By: #### 5 7021-8 #### [facility] CLIA [id number] [address] [place] [address] [place] Nucleated RBC/100 WBC (Bld) [Ratio] 0.0 /100 WBC Normal [facility] Comment on above: Order Comment: Speci men Type: BLOOD SPECIMEN Ordering Facility: [facility] Address: [address] [place] [address] Performed By: #### 5 7021-8 #### [facility] CLIA [id number] [address] [place] [address] [place] Platelet mean volume (Bld) [Entitic vol] 10.9 fL Normal 9.0-12.7 [facility] Comment on above: Order Comment: Speci men Type: BLOOD SPECIMEN Ordering Facility: [facility] Address: [address] [place] [address] Performed By: #### 5 7021-8 #### [facility] CLIA [id number] [address] [place] [address] [place] Platelets (Bld) [#/Vol] 271 10*3/uL Normal 150-400 [facility] Comment on above: Order Comment: Speci men Type: BLOOD SPECIMEN Ordering Facility: [facility] Address: [address] [place] [address] Performed By: #### 5 7021-8 #### [facility] CLIA [id number] [address] [place] [address] [place] RBC (Bld) [#/Vol] 4.19 10*6/uL Normal 3.90-5.20 [facility] Comment on above: Order Comment: Speci men Type: BLOOD SPECIMEN Ordering Facility: [facility] Address: [address] [place] [address] Performed By: #### 5 7021-8 #### [facility] CLIA [id number] [address] [place] [address] [place] WBC (Bld) [#/Vol] 12.95 10*3/uL High 3.70-11.00 [facility] Comment on above: Order Comment: Speci men Type: BLOOD SPECIMEN Ordering Facility: [facility] Address: [address] [place] [address] Performed By: #### 5 7021-8 #### [facility] CLIA [id number] [address] [place] [address] [place] HBV surface Ag Ser Qlon 06- HBV surface Ag Ql (S) Negative Normal Negative [facility] Comment on above: Order Comment: Speci men Type: BLOOD SPECIMEN Ordering Facility: [facility] Address: [address] [place] [address] Performed By: #### 3 1201-7, 53603-4, 5-3 #### [facility] CLIA [id number] [address] [place] [address] [place] HCV Ab Ser Qlon 05-01-2025 HCV Ab Ql (S) Negative Normal Negative [facility] Comment on above: Order Comment: Speci men Type: BLOOD SPECIMEN Ordering Facility: [facility] Address: [address] [place] [address] Result Comment: The result suggests no evidence of infection with Hepatitis C virus. Should recent infection be suspected, repeat testing may be considered 4-6 weeks after this draw. Performed By: #### 1 6128-1 #### [facility] CLIA [id number] [address] [place] [address] [place] HIV 1+2 Ab IA Qlon HIV 1 and 2 Ab IA.rapid Nom (S/P/Bld) Normal [facility] Comment on above: Order Comment: Speci men Type: BLOOD SPECIMEN Ordering Facility: [facility] Address: [address] [place] [address] Result Comment: Test not indicated. Performed By: #### 3 1201-7, 70778-1, 5-3 #### [facility] CLIA [id number] [address] [place] [address] [place] HIV 1+2 Ab+HIV1 p24 Ag IA Ql Non-Reactive Normal Nonreactive [facility] Comment on above: Order Comment: Speci men Type: BLOOD SPECIMEN Ordering Facility: [facility] Address: [address] [place] [address] Performed By: #### 3 1201-7, 61411-1, 5195-3 #### [facility] CLIA [id number] [address] [place] [address] [place] HIV immunoassay testing algorithm interpretation (S/P/Bld) [Interp] Normal [facility] Comment on above: Order Comment: Speci emily Type: BLOOD SPECIMEN Ordering Facility: [facility] Address: [address] [place] [address] Result Comment: No e vidence of HIV-1 or HIV-2 infection. Should recent infection be suspected, repeat testing may be considered 2-3 weeks after this draw. [place] Rev. Code 3701.243(E): This information has been disclosed to you from confidential records protected from disclosure by state law. You shall make no further disclosure of this information without the specific, written, and informed release of the individual to whom it pertains or as otherwise permitted by state law. A general authorization for the release of medical or other information is not sufficient for the purpose of the release of HIV test results or diagnoses. Performed By: #### 3 1201-7, 93170-2, 5195-3 #### [facility] CLIA [id number] [address] [place] [address] [place] HbA1c (Bld)on 05-01-2025 Average glucose Estimated from glycated hemoglobin (Bld) [Mass/Vol] 94 mg/dL Normal [facility] Comment on above: Order Comment: Raciel emily Type: BLOOD SPECIMEN Ordering Facility: [facility] Address: [address] [place] [address] Result Comment: eAG: (Estimated average glucose) is a calculated value from HgbA1c and is sales representative of the average blood glucose level in the last 2-3 month period. Performed By: #### 5 5454-3 #### [facility] CLIA [id number] [address] [place] [address] [place] HbA1c (Bld) [Mass fraction] 4.9 % Normal 4.3-5.6 [facility] Comment on above: Order Comment: Raciel diaz Type: BLOOD SPECIMEN Ordering Facility: [facility] Address: [address] [place] [address] Result Comment: [place] Diabetes Association guidelines indicate that patients with HgbA1c in the range 5.7-6.4% are at increased risk for development of diabetes, and intervention by lifestyle modification may be beneficial. HgbA1c greater or equal to 6.5% is considered diagnostic of diabetes. Performed By: #### 5 5454-3 #### [facility] CLIA [id number] [address] [place] [address] [place] RUBELLA IGG ANTIBODYon 05-01 RUBELLA IGG AB, QUAL Positive Normal Positive [facility] Comment on above: Order Comment: Speci men Type: BLOOD SPECIMEN Ordering Facility: [facility] Address: [address] [place] [address] Result Comment: The result suggests recent or past exposure to Rubella virus or history of Rubella vaccination. Positive result may also be seen due to presence of passively-transferred antibodies. Please correlate with patient's history. Performed By: #### 5 5454-3 #### [facility] CLIA [id number] [address] [place] [address] [place] Reagin and Treponema pallidu m IgG and IgM [Interp]on 05-01-2025 T. pallidum IgG+IgM IA Ql (S) Non-Reactive Normal Nonreactive [facility] Comment on above: Order Comment: [facility] Type: BLOOD SPECIMEN Ordering Facility: [facility] Address: [address] [place] [address] Performed By: #### 3 1201-7, 50071-9, 5195-3 #### [facility] CLIA [id number] [address] [place] [address] [place] Reagin+T pallidum IgG+IgM Se rPl-Impon 05-01-2025 Reagin and Treponema pallidum IgG and IgM [Interp] Cannot exclude recent Treponemal infection if specimen collected within 7-10 days after appearance of suspect lesions or 2-3 weeks after an exposure. Clinical correlation is required. Normal [facility] Comment on above: Order Comment: Speci men Type: BLOOD SPECIMEN Ordering Facility: [facility] Address: [address] [place] [address] Performed By: #### 3 1201-7, 14968-1, 5195-3 #### [facility] CLIA [id number] [address] [place] [address] [place] TYPE + SCREEN PRENATALon ABO B Normal [facility] Comment on above: Order Comment: Speci men Type: BLOOD SPECIMEN Ordering Facility: [facility] Address: [address] [place] [address] Performed By: #### T SPN #### [facility] CLIA [id number] [address] [place] [address] [place] Rh Nom (Bld) Positive Normal [facility] Comment on above: Order Comment: Speci men Type: BLOOD SPECIMEN Ordering Facility: [facility] Address: [address] [place] [address] Performed By: #### T SPN #### [facility] CLIA [id number] [address] [place] [address] [place] TYPE AND SCREEN EXPIRATION 05/04/2025 23:59 Normal [facility] Comment on above: Order Comment: Speci men Type: BLOOD SPECIMEN Ordering Facility: [facility] Address: [address] [place] [address] Performed By: #### T SPN #### [facility] CLIA [id number] [address] [place] [address] [place] Bacteria Ur Culton Bacteria identified Cx Nom (U) CULTURE, URINE: No growth (<1,000 CFU/ml) Normal [facility] Comment on above: Performed By: #### 5 5454-3 #### [facility] CLIA [id number] [address] [place] [address] [place] C. trachomatis+N. gonorrhoea e DNA REJI+probe Ql (Unsp spec)on 03-31-2025 C. trachomatis rRNA REJI+probe Ql (Unsp spec) Not detected Normal Not detected [facility] Comment on above: Order Comment: Speci men Type: BLOOD SPECIMEN Ordering Facility: [facility] Address: [address] [place] [address] Performed By: #### 5 5454-3 #### [facility] CLIA [id number] [address] [place] [address] [facility] N. gonorrhoeae rRNA REJI+probe Ql (Unsp spec) Not detected Normal Not detected [facility] Comment on above: Order Comment: Speci men Type: BLOOD SPECIMEN Ordering Facility: [facility] Address: [address] [place] [address] Performed By: #### 5 5454-3 #### [facility] CLIA [id number] [address] [place] [address] [place] POC BASIN CLEANER ULTRASOUNDon 03-31-20 25 Indication Viability; confirm cardiac activity Impression Single intrauterine gestational sac, CRL is appropriate for clinical dates, corresponding to CIARA 11/12/2025 FHR 150 bpm Recommendations Follow up for 1st Trimester Anatomy with Nuchal Translucency as clinically indicated if desired. Method Transabdominal and transvaginal ultrasound examination Iqbal . Number of embryos: 1 Dating LMP on: 02/05/2025 GA by LMP 7 w + 5 d CIARA by LMP: 11/12/2025 Ultrasound examination on: 03/31/2025 GA by U/S based upon: CRL GA by U/S 7 w + 3 d CIARA by U/S: 11/14/2025 Assigned: based on the LMP, selected on 03/31/2025 Assigned GA 7 w + 5 d Assigned CIARA: 11/12/2025 Biometry Standard FHR 150 bpm CRL 12.5 mm 7w 3d 48% Hadlock Assessment Gestational sac: visualized Location: intrauterine Yolk sac: visualized Embryo: visualized CRL 12.5 mm 7w 3d 48% Hadlock Cardiac activity: present FHR 150 bpm General Evaluation Cardiac activity present. FHR 150 bpm Performed By: Sherley Adamson CNM Read By: Sherley Adamson CNM MATERNAL MEDICINE [facility] Radiology Study observation (narrative) [facility] .Auto Diffon 12-01-2024 Basophil, Absolute 0.0 10 3/mcL Normal 0.0-0.2 [facility] Comment on above: Performed By: #### A DIFF, CBC, ANEU #### [address] [address] Basophils/100 WBC (Bld) 0.5 % Normal 0.0-2.5 [facility] Comment on above: Performed By: #### A DIFF, CBC, ANEU #### [address] [address] Eosinophil, Absolute 0.1 10 3/mcL Normal 0.0-0.7 [facility] Comment on above: Performed By: #### A DIFF, CBC, ANEU #### [address] [address] Eosinophils/100 WBC (Bld) 1.2 % Normal 0.0-7.0 [facility] Comment on above: Performed By: #### A DIFF, CBC, ANEU #### [address] [address] Lymphocyte, Absolute 2.5 10 3/mcL Normal 0.9-4.3 [facility] Comment on above: Performed By: #### A DIFF, CBC, ANEU #### [address] [address] Lymphocytes/100 WBC (Bld) 30.2 % Normal 20.0-40.0 [facility] Comment on above: Performed By: #### A DIFF, CBC, ANEU #### [address] [address] Monocyte, Absolute 0.5 10 3/mcL Normal 0.1-1.4 [facility] Comment on above: Performed By: #### A DIFF, CBC, ANEU #### [address] [address] Monocytes/100 WBC (Bld) 6.2 % Normal 2.0-13.0 [facility] Comment on above: Performed By: #### A DIFF, CBC, ANEU #### [address] [address] Neutrophils/100 WBC (Bld) 61.9 % Normal 50.0-75.0 [facility] Comment on above: Performed By: #### A DIFF, CBC, ANEU #### [address] [address] .NEUABSon 12-01-2024 Neutrophil, Absolute 5.2 10 3/mcL Normal 2.3-8.1 [facility] Comment on above: Performed By: #### A DIFF, CBC, ANEU #### [place] [address] CBCon 12-01-2024 Erythrocyte distribution width (RBC) [Ratio] 13.9 % Normal 11.5-15.5 [facility] Comment on above: Performed By: #### A DIFF, CBC, ANEU #### [place] [address] Hematocrit (Bld) [Volume fraction] 38.1 % Normal 34.0-46.0 [facility] Comment on above: Performed By: #### A DIFF, CBC, ANEU #### [place] [address] Hgb 13.0 G/dL Normal 12.0-16.0 [facility] Comment on above: Performed By: #### A DIFF, CBC, ANEU #### [address] [address] MCH (RBC) [Entitic mass] 28.5 pg Normal 27.0-33.0 [facility] Comment on above: Performed By: #### A DIFF, CBC, ANEU #### [place] [address] MCHC 34.1 G/dL Normal 32.0-36.0 [facility] Comment on above: Performed By: #### A DIFF, CBC, ANEU #### [place] [address] MCV (RBC) [Entitic vol] 83.8 fL Normal 80.0-99.0 [facility] Comment on above: Performed By: #### A DIFF, CBC, ANEU #### [place] [address] [place], [place] [address] Platelet 254 10 3/mcL Normal 150-450 [facility] Comment on above: Performed By: #### A DIFF, CBC, ANEU #### [place] [address] [place], [place] [address] Platelet mean volume (Bld) [Entitic vol] 9.0 fL Normal 6.6-10.5 [facility] Comment on above: Performed By: #### A DIFF, CBC, ANEU #### [address] [address] RBC 4.55 10 6/mcL Normal 4.10-5.30 [facility] Comment on above: Performed By: #### A DIFF, CBC, ANEU #### [address] [address] WBC 8.4 10 3/mcL Normal 4.5-10.8 [facility] Comment on above: Performed By: #### A DIFF, CBC, ANEU #### [address] [address] LABORATORYOrdered By: SYSTEM SYSTEM on 12-01-2024 Basophils (Bld) [#/Vol] 0.0 103/mcL Normal 0.0 - 0.2 10^3/mcL AO Workflow SS Basophils/100 WBC (Bld) 0.5 % Normal 0.0 - 2.5 % AO Workflow SS Eosinophil, Absolute 0.1 103/mcL Normal 0.0 - 0 .7 10^3/mcL AO Workflow SS Eosinophils/100 WBC (Bld) 1.2 % Normal 0.0 - 7.0 % AO Workflow SS Erythrocyte distribution width (RBC) [Ratio] 13.9 % Normal 11.5 - 15.5 % AO Workflow SS Hematocrit (Bld) [Volume fraction] 38.1 % Normal 34.0 - 46.0 % AO Workflow SS Hemoglobin (Bld) [Mass/Vol] 13.0 G/dL Normal 12.0 - 16.0 G/dL AO Workflow SS Lymphocytes (Bld) [#/Vol] 2.5 103/mcL Normal 0.9 - 4.3 10^3/mcL AO Workflow SS Lymphocytes/100 WBC (Bld) 30.2 % Normal 20.0 - 40.0 % AO Workflow SS MCH (RBC) [Entitic mass] 28.5 pg Normal 27.0 - 33.0 pg AO Workflow SS MCHC 34.1 G/dL Normal 32.0 - 36.0 G/dL AO Workf low SS MCV (RBC) [Entitic vol] 83.8 fL Normal 80.0 - 99.0 fL AO Workflow SS Monocytes (Bld) [#/Vol] 0.5 103/mcL Normal 0.1 - 1.4 10^3/mcL AO Workflow SS Monocytes/100 WBC (Bld) 6.2 % Normal 2.0 - 13.0 % AO Workflow SS Neutrophils (Bld) [#/Vol] 5.2 103/mcL Normal 2.3 - 8.1 10^3/mcL AO Workflow SS Neutrophils/100 WBC (Bld) 61.9 % Normal 50.0 - 75.0 % AO Workflow SS Platelet mean volume (Bld) [Entitic vol] 9.0 fL Normal 6.6 - 10.5 fL AO Workflow SS Platelets (Bld) [#/Vol] 254 103/mcL Normal 150 - 450 10^3/mcL AO Workflow SS RBC (Bld) [#/Vol] 4.55 106/mcL Normal 4.10 - 5.3 0 10^6/mcL AO Workflow SS WBC (Bld) [#/Vol] 8.4 103/mcL Normal 4.5 - 10.8 10^3/mcL AO Workflow SS 25-hydroxyvitamin D3 [Mass/V ol]on 09-19-2024 Interpretation and review of laboratory results Abnormal [facility] GLUCOSE, FASTINGon Glucose post fast [Mass/Vol] 87 mg/dL 74 - 99 mg/dL [facility] Comment on above: [place] Diabetes As sociation guidelines state that a diabetes mellitus diagnosis is preliminarily made when the fasting plasma glucose meets or exceeds 126 mg/dL. In the absence of unequivocal hyperglycemia, results should be confirmed with repeat testing. Patients are at increased risk for diabetes mellitus (prediabetes) when the fasting glucose is 100 to 125 mg/dL. Glucose post fast [Mass/Vol] on 09-19-2024 Interpretation and review of laboratory results Normal [facility] HBV surface Ag Ql (S)on Interpretation and review of laboratory results Normal [facility] HCV Ab Ql (S)on 09-19-2024 Interpretation and review of laboratory results Normal [facility] HEPATITIS B SURFACE ANTIGENo n 09-19-2024 HBV surface Ag Ql (S) Negative Negative [facility] HEPATITIS C ANTIBODY IA WITH CONFIRMATIONon 09-19-2024 HCV Ab Ql (S) Negative Negative [facility] Comment on above: The result suggests no evidence of active infection with Hepatitis C virus. Should recent infection be suspected, repeat testing may be considered 4-6 weeks after this draw. HIV 1+2 Ab IA Qlon HIV 1 and 2 Ab IA.rapid Nom (S/P/Bld) [facility] Comment on above: Test not indicated. HIV 1+2 Ab+HIV1 p24 Ag IA Ql Non-Reactive Nonreactive [facility] HIV immunoassay testing algorithm interpretation (S/P/Bld) [Interp] [facility] Comment on above: No evidence of HIV-1 or HIV-2 infection. Should recent infection be suspected, repeat testing may be considered 2-3 weeks after this draw. [place] Rev. Code 3701.243(E): This information has been disclosed to you from confidential records protected from disclosure by state law. You shall make no further disclosure of this information without the specific, written, and informed release of the individual to whom it pertains or as otherwise permitted by state law. A general authorization for the release of medical or other information is not sufficient for the purpose of the release of HIV test results or diagnoses. [facility] HbA1c (Bld)on 09-19-2024 Average glucose Estimated from glycated hemoglobin (Bld) [Mass/Vol] 97 mg/dL [facility] Comment on above: eAG: (Estimated aver age glucose) is a calculated value from HgbA1c and is sales representative of the average blood glucose level in the last 2-3 month period. HbA1c (Bld) [Mass fraction] 5.0 % 4.3 - 5.6 % [facility] Comment on above: [place] Diabetes As sociation guidelines indicate that patients with HgbA1c in the range 5.7-6.4% are at increased risk for development of diabetes, and intervention by lifestyle modification may be beneficial. HgbA1c greater or equal to 6.5% is considered diagnostic of diabetes. [facility] INSULIN ASSAY BLOODon 2023 Insulin Qn 3.8 u[IU]/mL 3.0 - 25.0 mU/L [facility] Insulin Qnon 09-19-2024 Interpretation and review of laboratory results Normal [facility] Reagin and Treponema pallidu m IgG and IgM [Interp]on 09-19-2024 T. pallidum IgG+IgM IA Ql (S) Non-Reactive Nonreactive [facility] SYPHILIS TREPONEMAL W/REFLEX on 09-19-2024 Reagin and Treponema pallidum IgG and IgM [Interp] Cannot exclude recent Treponemal infection if specimen collected within 7-10 days after appearance of suspect lesions or 2-3 weeks after an exposure. Clinical correlation is required. [facility] VITAMIN D 25 HYDROXYon 09-19 25-hydroxyvitamin D3 [Mass/Vol] 25.4 ng/mL Low 31.0 - 80.0 ng/mL [facility] Absolute lymphocyte countOrd ered By: Mindy Delvalle on 08-01-2023 Lymphocytes Auto (Unsp spec) [#/Vol] 1.80 10*3/uL 0.83-4.51 [facility] Basophil percentageOrdered B y: Mindy Delvalle on 08-01-2023 Basophils/100 WBC (Bld) 0.4 % 0-1 [facility] Eosinophils/100 WBC (Bld) 0.1 % 0-5 [facility] Neutrophils (Bld) [#/Vol] 11.0 10*3/uL 2.0-7.7 [facility] Neutrophils/100 WBC (Bld) 81.1 % 47-70 [facility] WBC (Bld) [#/Vol] 13.6 10*3/uL 4.4-11.0 [facility] Blood erythrocytes count (nu mber/volume)Ordered By: Mindy Delvalle on 08-01-2023 RBC (Bld) [#/Vol] 4.20 10*6/uL 4.2-5.4 [facility] Blood hemoglobin measurement (mass/volume)Ordered By: Mindy Delvalle on 08-01-2023 Hemoglobin (Bld) [Mass/Vol] 12.3 g/dL 12.0-15.0 [facility] Blood lymphocytes/100 leukoc ytesOrdered By: Mindy Delvalle on 08-01-2023 Lymphocytes/100 WBC (Bld) 13.2 % 19-41 [facility] Blood monocytes/100 leukocyt esOrdered By: Mindy Delvalle on 08-01-2023 Monocytes/100 WBC (Bld) 4.8 % 0-10 [facility] Blood platelet mean volumeOr dered By: Mindy Delvalle on 08-01-2023 Platelet mean volume (Bld) [Entitic vol] 10.9 fL 6.2-12.0 [facility] Determination of erythrocyte mean corpuscular volume (MCV)Ordered By: Mindy Delvalle on 08-01-2023 MCV (RBC) [Entitic vol] 86.7 fL 81-99 [facility] Hematocrit Auto (Bld) [Volum e fraction]Ordered By: Mindy Delvalle on 08-01-2023 Hematocrit (Bld) [Volume fraction] 36.4 % 37-47 [facility] Laboratory - Hematology and Cell countsOrdered By: Mindy Delvalle on 08-01-2023 Erythrocyte distribution width (RBC) [Entitic vol] 40.6 fL 35.1-43.9 [facility] Erythrocyte distribution width (RBC) [Ratio] 13.0 % 11.6-14.6 [facility] Immature granulocytes/100 WBC (Bld) 0.400 % 0.0-0.9 [facility] Comment on above: IG% - Immature Granu locytes (promyelocytes, myelocytes and metamyelocytes) > 1% indicates that a LEFT SHIFT is Present. MCH (RBC) [Entitic mass] 29.3 pg 27.0-32.0 [facility] Nucleated RBC/100 WBC (Bld) [Ratio] 0 % 0-5 [facility] MCHC Auto (RBC) [Mass/Vol]Or dered By: Mindy Delvalle on 08-01-2023 MCHC (RBC) [Mass/Vol] 33.8 g/dL 32-36 [facility] Platelets bldOrdered By: Mirna Delvalle on 08-01-2023 Platelets (Bld) [#/Vol] 191 10*3/uL 150-450 [facility] Serum Treponema species anti body detectionOrdered By: Mindy Delvalle on 08-01-2023 Treponema sp Ab Ql (S) Non-Reactive [facility] URINE OB DIP B/Oon 3 Glucose Ql (U) Negative Neg mg/dL [facility] Protein.monoclonal (U) [Mass/Vol] Negative Neg mg/dL [facility] URINE OB DIP B/Oon 3 Glucose Ql (U) Negative Neg mg/dL [facility] Protein.monoclonal (U) [Mass/Vol] Negative Neg mg/dL [facility] URINE OB DIP B/Oon 3 Glucose Ql (U) Negative Neg mg/dL [facility] Protein.monoclonal (U) [Mass/Vol] Negative Neg mg/dL [facility] URINE OB DIP B/Oon 3 Glucose Ql (U) Negative Neg mg/dL [facility] Protein.monoclonal (U) [Mass/Vol] Negative Neg mg/dL [facility] URINE OB DIP B/Oon 3 Glucose Ql (U) Negative Neg mg/dL [facility] Protein.monoclonal (U) [Mass/Vol] Negative Neg mg/dL [facility] URINE OB DIP B/Oon 3 Glucose Ql (U) Negative Neg mg/dL [facility] Protein.monoclonal (U) [Mass/Vol] Negative Neg mg/dL [facility] URINE OB DIP B/Oon 3 Glucose Ql (U) Negative Neg mg/dL [facility] Protein.monoclonal (U) [Mass/Vol] Negative Neg mg/dL [facility] OBSTETRIC ULTRASOUND WHIon 0 03-13-2023 [facility] URINE OB DIP B/Oon 3 Glucose Ql (U) Negative Neg mg/dL [facility] Protein.monoclonal (U) [Mass/Vol] Negative Neg mg/dL [facility] HPV W/GENOTYPE THIN PREPon 0 01-27-2023 HPV 16 Ag Ql (Unsp spec) Negative Negative for HPV DNA high risk type 16 by PCR [facility] HPV 18 Ag Ql (Unsp spec) Negative Negative for HPV DNA high risk type 18 by PCR [facility] HPV 31+33+35+39+45+51+52+ 56+58+59+66+68 DNA REJI+probe Ql (Cvx) Negative for HPV DNA high risk types: 31,33,35,39,45,51,52, 56,58,59,66,68 by PCR. Negative for HPV DNA high risk types: 31,33,35,39,45,5 1,52,56,58,59,66 ,68 by PCR. [facility] HEP B SURF AG SCRNon 023 HBV surface Ag Ql (S) Negative Negative [facility] HEP C AB IA W/CONF SCRNon HCV Ab Ql (S) Negative Negative [facility] HIV 1+2 Ab IA Qlon HIV 1 and 2 Ab IA.rapid Nom [facility] HIV 1+2 Ab+HIV1 p24 Ag IA Ql Non-Reactive Nonreactive [facility] HIV Interpretation [facility] RUBELLA IGG ABon 01-26-2023 Rubella IgG, Qual Positive Positive [facility] Reagin and Treponema pallidu m IgG and IgM [Interp]on 01-26-2023 Syphilis Interpretation Cannot exclude recent Treponemal infection if specimen collected within 7-10 days after appearance of suspect lesions or 2-3 weeks after an exposure. Clinical correlation is required. [facility] T. pallidum IgG+IgM IA Ql (S) Non-Reactive Nonreactive [facility] C. trachomatis+N. gonorrhoea e DNA REJI+probe Ql (Unsp spec)on 01-24-2023 C. trachomatis DNA REJI+probe Ql (Unsp spec) Negative Negative for Chlamydia trachomatis by amplificaton [facility] N. gonorrhoeae DNA REJI+probe Ql (Unsp spec) Negative Negative for Neisseria gonorrhoeae by amplification [facility] Microscopic observation Gram stain Nom (Vag fld)on 01-24-2023 Bacterial Vaginosis BACTERIAL VAGINOSIS RESULT: Stain results consistent with bacterial vaginosis. Abnormal [facility] Bacterial Vaginosis No Yeast observed Abnormal [facility] Bacterial Vaginosis No Polymorphonuclear Leukocytes Abnormal [facility] T VAGINALIS AMPLIFICATIONon 01-24-2023 T. vaginalis DNA ERJI+probe Ql (Unsp spec) Negative Negative for Trichomonas vaginalis by amplification [facility] TYPE + SCREEN PRENATALon ABO B [facility] HIstorical Ab Scr Status Negative [facility] Rh Nom (Bld) Positive [facility] Type and Screen Expiration 01/26/2023 23:59 [facility] URINE CULTUREon 01-24-2023 Bacteria identified Cx Nom (U) No growth (<1,000 CFU/ml) [facility] CBC panel Auto (Bld)on 01-23 Erythrocyte distribution width (RBC) [Ratio] 13.6 % 11.5 - 15.0 % [facility] Hematocrit (Bld) [Volume fraction] 38.2 % 36.0 - 46.0 % [facility] Hemoglobin (Bld) [Mass/Vol] 13.1 g/dL 11.5 - 15.5 g/dL [facility] MCH (RBC) [Entitic mass] 28.9 pg 26.0 - 34.0 pg [facility] MCHC (RBC) [Mass/Vol] 34.3 g/dL 30.5 - 36.0 g/ dL [facility] MCV (RBC) [Entitic vol] 84.3 fL 80.0 - 100.0 fL [facility] Nucleated RBC (Bld) [#/Vol] <0.01 k/uL [facility] Platelet mean volume (Bld) [Entitic vol] 10.2 fL 9.0 - 12.7 fL [facility] Platelets (Bld) [#/Vol] 297 10*3/uL 150 - 400 k/uL [facility] RBC (Bld) [#/Vol] 4.53 10*6/uL 3.90 - 5.20 m/uL [facility] WBC (Bld) [#/Vol] 11.78 10*3/uL High 3.70 - 11 .00 k/uL [facility] Vital Signs Date Time Vital Sign Value Performing Clinician Adrian jackson 07-21-2025 08:39-0400 Body mass index (BMI) [Ratio] 28.55 kg/m2 Jennifer Lutz APRN.CNM Work Phone: [facility] 07-21-2025 08:39-0400 Body weight 90.27 kg Jennifer Lutz APRN.CNM Work Phone: [facility] 07-21-2025 08:39-0400 Diastolic blood pressure 62 mm[Hg] Jennifer Lutz APRN.CNM Work Phone: [facility] 07-21-2025 08:39-0400 Systolic blood pressure 102 mm[Hg] Jennifer Aparicioorquidea KAYECNM Work Phone: [facility] 07-04-2025 14:59-0400 Body mass index (BMI) [Ratio] 28.44 kg/m2 [facility] 07-04-2025 14:59-0400 Body weight 89.9 kg [facility] 07-04-2025 14:59-0400 Diastolic blood pressure 60 mm[Hg] [facility] 07-04-2025 14:59-0400 Systolic blood pressure 112 mm[Hg] [facility] 06-02-2025 15:57-0400 Body mass index (BMI) [Ratio] 27.98 kg/m2 Kalie Ellington MD Work Phone: [facility] 06-02-2025 15:57-0400 Body weight 88.45 kg Kalie Ellington MD Work Phone: [facility] 06-02-2025 15:57-0400 Diastolic blood pressure 64 mm[Hg] Kalie Ellington MD Work Phone: [facility] 06-02-2025 15:57-0400 Systolic blood pressure 106 mm[Hg] Kalie Ellington MD Work Phone: [facility] 05-01-2025 15:46-0400 Body mass index (BMI) [Ratio] 28.12 kg/m2 Elie Urias MD Work Phone: [facility] 05-01-2025 15:46-0400 Body weight 88.91 kg Elie Urias MD Work Phone: [facility] 05-01-2025 15:46-0400 Diastolic blood pressure 68 mm[Hg] Elie Urias MD Work Phone: [facility] 05-01-2025 15:46-0400 Systolic blood pressure 106 mm[Hg] Elie Urias MD Work Phone: [facility] 03-31-2025 08:50-0400 Body height 177.8 cm Sherley Adamson APRN.CNM Work Phone: [facility] 03-31-2025 08:50-0400 Body mass index (BMI) [Ratio] 27.41 kg/m2 Sherley Adamson SOLAR DEVELOPMENT ENGINEER.CNM Work Phone: [facility] 03-31-2025 08:50-0400 Body weight 86.64 kg Sherley Adamson SOLAR DEVELOPMENT ENGINEER.CNM Work Phone: [facility] 03-31-2025 08:50-0400 Diastolic blood pressure 62 mm[Hg] Sherley Adamson SOLAR DEVELOPMENT ENGINEER.CNM Work Phone: [facility] 03-31-2025 08:50-0400 Systolic blood pressure 102 mm[Hg] Sherley Adamson SOLAR DEVELOPMENT ENGINEER.CNM Work Phone: [facility] 09-19-2024 15:57-0500 Body height 175.9 cm Nidia Moise SOLAR DEVELOPMENT ENGINEER.LPN PER DIEM Work Phone: [facility] 09-19-2024 15:57-0500 Body mass index (BMI) [Ratio] 28.59 kg/m2 Nidia Hanina SOLAR DEVELOPMENT ENGINEER.LPN PER DIEM Work Phone: [facility] 09-19-2024 15:57-0500 Body weight 88.45 kg Nidia Haury SOLAR DEVELOPMENT ENGINEER.LPN PER DIEM Work Phone: [facility] 09-19-2024 15:57-0500 Diastolic blood pressure 70 mm[Hg] Nidia Haury SOLAR DEVELOPMENT ENGINEER.LPN PER DIEM Work Phone: [facility] 09-19-2024 15:57-0500 Systolic blood pressure 102 mm[Hg] Nidia Haury SOLAR DEVELOPMENT ENGINEER.LPN PER DIEM Work Phone: [facility] 08-02-2023 09:27-0400 Diastolic blood pressure 66 mm[Hg] [facility] 08-02-2023 09:27-0400 Heart rate 81 /min [facility] 08-02-2023 09:27-0400 Systolic blood pressure 102 mm[Hg] [facility] 08-02-2023 09:25-0400 SaO2% (BldA) [Mass fraction] 95 % [facility] 08-02-2023 09:10-0400 Body temperature 98.2 [degF] [facility] 08-02-2023 09:10-0400 Respiratory rate 18 /min [facility] 08-01-2023 07:55-0400 Body height 177.8 cm [facility] 08-01-2023 07:55-0400 Body mass index (BMI) [Ratio] 29.2 kg/m2 [facility] 08-01-2023 07:55-0400 Body weight 92.53 kg [facility] 07-30-2023 16:18-0400 Body weight 92.63 kg Jasmin Núñez MD Work Phone: [facility] 07-30-2023 16:18-0400 Diastolic blood pressure 70 mm[Hg] Jasmin Núñez MD Work Phone: [facility] 07-30-2023 16:18-0400 Systolic blood pressure 104 mm[Hg] Jasmin Núñez MD Work Phone: [facility] 07-23-2023 16:11-0400 Body weight 92.17 kg Elie Urias MD Work Phone: [facility] 07-23-2023 16:11-0400 Diastolic blood pressure 60 mm[Hg] Elie Urias MD Work Phone: [facility] 07-23-2023 16:11-0400 Systolic blood pressure 100 mm[Hg] Elie Urias MD Work Phone: [facility] 07-17-2023 16:26-0400 Body weight 92.53 kg Elie Urias MD Work Phone: [facility] 07-17-2023 16:26-0400 Diastolic blood pressure 60 mm[Hg] Elie Urias MD Work Phone: [facility] 07-17-2023 16:26-0400 Systolic blood pressure 106 mm[Hg] Elie Urias MD Work Phone: [facility] 07-09-2023 08:16-0400 Body weight 92.08 kg Otilia Sewell MD Work Phone: [facility] 07-09-2023 08:16-0400 Diastolic blood pressure 72 mm[Hg] Otilia Sewell MD Work Phone: [facility] 07-09-2023 08:16-0400 Systolic blood pressure 110 mm[Hg] Otilia Sewell MD Work Phone: [facility] 06-25-2023 16:03-0400 Body weight 91.63 kg Elie Urias MD Work Phone: [facility] 06-25-2023 16:03-0400 Diastolic blood pressure 70 mm[Hg] Elie Urias MD Work Phone: [facility] 06-25-2023 16:03-0400 Systolic blood pressure 108 mm[Hg] Elie Urias MD Work Phone: [facility] 05-21-2023 08:34-0400 Body weight 90.63 kg Jasmin Núñez MD Work Phone: [facility] 05-21-2023 08:34-0400 Diastolic blood pressure 60 mm[Hg] Jasmin Núñez MD Work Phone: [facility] 05-21-2023 08:34-0400 Systolic blood pressure 100 mm[Hg] Jasmin Núñez MD Work Phone: [facility] 04-16-2023 08:07-0400 Body weight 88.91 kg Jennifer Plotts SOLAR DEVELOPMENT ENGINEER.CNM Work Phone: [facility] 04-16-2023 08:07-0400 Diastolic blood pressure 62 mm[Hg] Jennifer Plotts SOLAR DEVELOPMENT ENGINEER.CNM Work Phone: [facility] 04-16-2023 08:07-0400 Systolic blood pressure 104 mm[Hg] Jennifer Plotts SOLAR DEVELOPMENT ENGINEER.CNM Work Phone: [facility] 02-16-2023 08:28-0400 Body weight 84.82 kg Mindy Delvalle MD Work Phone: [facility] 02-16-2023 08:28-0400 Diastolic blood pressure 72 mm[Hg] Mindy Delvalle MD Work Phone: [facility] 02-16-2023 08:28-0400 Systolic blood pressure 110 mm[Hg] Mindy Delvalle MD Work Phone: [facility] 01-23-2023 14:27-0500 Body height 177.8 cm Jasmin Núñez MD Work Phone: [facility] 01-23-2023 14:27-050 Body weight 84.55 kg Jasmin Núñez MD Work Phone: [facility] 01-23-2023 14:27-0500 Diastolic blood pressure 56 mm[Hg] Jasmin Núñez MD Work Phone: [facility] 01-23-2023 14:27-0500 Systolic blood pressure 100 mm[Hg] Jasmin Núñez MD Work Phone: [facility] Encounters Encounter Date Encounter Type Care Provider Facility Start: 11-12-2025 ambulatory No Primary Car e Physician Facility:[facility] Start: 09-22-2025 End: 09-22-2025 ambulatory MINDY DELVALLE Facility:[facility] Start: 09-08-2025 End: 09-08-2025 ambulatory KALIE ELLINGTON Facility:[facility] Start: 08-18-2025 End: 08-18-2025 ambulatory JENNIFER LUTZ Facility:[facility] Start: 07-21-2025 End: 07-21-2025 Patient encounter procedure Jennifer Lutz SOLAR DEVELOPMENT ENGINEER.CNM Work Phone: OB/Gynecology Comment on above: Encounter for superv ision of other normal in second trimester (HCC) (Primary Dx); 23 weeks gestation of (HCC); Screening for diabetes mellitus screening for malformation using ultrasonics (HCC) (Primary Dx); 23 weeks gestation of (HCC) Start: 07-21-2025 End: 07-21-2025 ambulatory VAL FORD Facility:[facility] Start: 07-06-2025 End: 07-06-2025 Telephone encounter Kalie Ellington MD Work Phone: OB/Gynecology Comment on above: Appointment Start: 07-04-2025 End: 07-04-2025 Patient encounter procedure [employer] [facility] Comment on above: screening for malformation using ultrasonics (HCC) (Primary Dx); 21 weeks gestation of (HCC) Start: 07-04-2025 End: 07-04-2025 ambulatory SHERLEY ADAMSON Facility:[facility] Start: 07-04-2025 End: 07-04-2025 Subsequent hospital visit by physician [facility] Work Phone: Radiology Comment on above: 16 weeks gestation o f (HCC) [Z3A.16] Start: 06-02-2025 End: 06-02-2025 Patient encounter procedure Kalie Ellington MD Work Phone: OB/Gynecology Comment on above: 16 weeks gestation o f (HCC) (Primary Dx); Encounter for supervision of other normal in second trimester ([facility]); Breast pain, left Start: 06-02-2025 End: 06-02-2025 ambulatory KALIE ELLINGTON Facility:[facility] Start: 05-01-2025 End: 05-01-2025 ambulatory SHERLEY ADAMSON Facility:[facility] Start: 05-01-2025 End: 05-01-2025 Patient encounter procedure Elie Urias MD Work Phone: OB/Gynecology Comment on above: Encounter for superv ision of other normal , first trimester (HCC) (Primary Dx); 12 weeks gestation of ([facility]) Start: 03-31-2025 End: 03-31-2025 Patient encounter procedure Sherley Adamson APRN.CNM Work Phone: OB/Gynecology Comment on above: with uncer tain dates, antepartum (HCC) (Primary Dx); Encounter for supervision of other normal , first trimester ([facility]) Start: 03-31-2025 End: 03-31-2025 ambulatory SHERLEY ADAMSON Facility:[facility] Start: 12-01-2024 End: 12-05-2024 ambulatory UJNIOR GRANT DO Facility:[facility] Start: 12-01-2024 End: 12-05-2024 Outreach Lab JUNIOR GRANT DO [facility] Start: 09-19-2024 End: 09-19-2024 Patient encounter procedure Nidia Moise DUNIA.LPN PER DIEM Work Phone: OB/Gynecology Comment on above: Encounter for gyneco logical examination (general) (routine) without abnormal findings (Primary Dx); Screening cholesterol level; Encounter for screening for diabetes mellitus; Screening examination for STI; Screening for thyroid disorder; Malaise and fatigue Start: 09-19-2024 End: 09-19-2024 Patient encounter status Nidia Moise DUNIA.LPN PER DIEM Work Phone: [facility] Start: 08-03-2023 ambulatory Mindy hutson MD Work Phone: OB/Gynecology Comment on above: Ob Delivery Note Start: 08-01-2023 End: 08-02-2023 Evaluation and management of inpatient [facility] Work Phone: Start: 07-31-2023 Telephone encounter Mindy Delvalle MD Work Phone: OB/Gynecology Comment on above: Care Start: 07-30-2023 End: 07-30-2023 Patient encounter procedure Jasmin Núñez MD Work Phone: OB/Gynecology Comment on above: 39 weeks gestation o f (Primary Dx); with care elsewhere, antepartum Start: 07-23-2023 End: 07-23-2023 Patient encounter procedure Elie Urias MD Work Phone: OB/Gynecology Comment on above: 38 weeks gestation o f (Primary Dx); Encounter for supervision of other normal in third trimester Start: 07-17-2023 End: 07-17-2023 Patient encounter procedure Elie Urias MD Work Phone: OB/Gynecology Comment on above: 38 weeks gestation o f (Primary Dx); Encounter for supervision of other normal in third trimester Start: 07-09-2023 End: 07-09-2023 Patient encounter procedure Otilia Sewell MD Work Phone: OB/Gynecology Comment on above: Encounter for superv ision of other normal in third trimester (Primary Dx); 36 weeks gestation of Start: 06-26-2023 ambulatory Elie Tao Work Phone: [facility] [facility] Start: 06-26-2023 Follow-up encounter Elie hewitt MD Work Phone: OB/Gynecology Comment on above: Skin rash follow up Start: 06-25-2023 End: 06-25-2023 Patient encounter procedure Elie Urias MD Work Phone: OB/Gynecology Comment on above: 34 weeks gestation o f (Primary Dx) Start: 05-21-2023 End: 05-21-2023 Patient encounter procedure Jasmin Núñez MD Work Phone: OB/Gynecology Comment on above: 29 weeks gestation o f (Primary Dx); Encounter for supervision of other normal in second trimester Start: 04-16-2023 End: 04-16-2023 Patient encounter procedure Jennifer Luzt SOLAR DEVELOPMENT ENGINEER.CNM Work Phone: OB/Gynecology Comment on above: 24 weeks gestation o f (Primary Dx) Start: 03-13-2023 End: 03-13-2023 Patient encounter procedure Literary Writer [facility] Work Phone: OB/Gynecology Comment on above: Encounter for anatomic survey (Primary Dx); with care elsewhere, antepartum; 20 weeks gestation of Start: 02-16-2023 End: 02-16-2023 Patient encounter procedure Mindy Delvalle MD Work Phone: OB/Gynecology Comment on above: Encounter for superv ision of other normal in second trimester (Primary Dx); 16 weeks gestation of Start: 01-24-2023 ambulatory Jasmin Tao Work Phone: OB/Gynecology Comment on above: Question regarding B ACT/MINNA VAG GRAM STAIN Start: 01-23-2023 End: 01-23-2023 Patient encounter procedure Jasmin Núñez MD Work Phone: OB/Gynecology Comment on above: Encounter for screen ing for malignant neoplasm of cervix (Primary Dx); Special screening examination for human papillomavirus (HPV); with care elsewhere, antepartum; Vaginal itching Start: 01-23-2023 ambulatory [facility] Provider OB/Gynecol marvin Comment on above: Care Anders nion Enrollment Start: 01-23-2023 E-mail encounter aster m caregiver [facility] Provider [facility] [facility] Start: 01-22-2023 End: 01-22-2023 Nursing evaluation of patient and report Nurse [facility] Work Phone: OB/Gynecology Comment on above: Encounter for superv ision of normal in multigravida in first trimester (Primary Dx); Family history of genetic disease; with care elsewhere, antepartum Start: 01-13-2023 Telephone encounter Jasmin duffy MD Work Phone: OB/Gynecology Comment on above: Future Appointment Procedures Date Procedure Procedure Detail Performing Clinician Start: 07-21-2025 Us preg uterus after 1st trimest 11/16 gestation Val Ford MD Work Phone: Start: 07-04-2025 End: 07-04-2025 Us preg uterus after 1st trimest 11/16 gestation Sherley Adamson APRN.CNM Work Phone: Start: 05-01-2025 Antibody screen DEE ELLINGTON Comment on above: Order Comment: Speci men Type: BLOOD SPECIMEN Ordering Facility: [facility] Address: [address] [place] [address] Performed By: #### T SPN #### CC [facility] BLOOD BANK [facility] [id number] [address] [place] [address] [place] Start: 03-31-2025 Us uterus l imited 1/> fetuses Sherley Adamson APRN.CNM Work Phone: Start: 07-30-2023 URINE OB DIP B/O Jasmin Núñez MD Work Phone: Start: 07-23-2023 URINE OB DIP B/O Elie cruz MD Work Phone: Start: 07-17-2023 URINE OB DIP B/O Elie cruz MD Work Phone: Start: 07-09-2023 URINE OB DIP B/O Otilia Sewell MD Work Phone: Start: 06-25-2023 URINE OB DIP B/O Elie cruz MD Work Phone: Start: 05-21-2023 URINE OB DIP B/O Jasmin Núñez MD Work Phone: Start: 04-16-2023 URINE OB DIP B/O Estefanía Lutz SOLAR DEVELOPMENT ENGINEER.CNM Work Phone: Start: 03-13-2023 Us preg uterus after 1st trimest 11/16 gestation Jasmin Núñez MD Work Phone: Start: 02-16-2023 URINE OB DIP B/O Ryan Delvalle MD Work Phone: Start: 01-24-2023 Antibody screen Jasmin Núñez MD Work Phone: Start: 01-23-2023 Iadna chlamydia trac homatis amplified probe tq Jasmin Núñez MD Work Phone: Education about post operative care after adenotonsillectomy JUNIOR GRANT DO Plan of Treatment Date Care Activity Detail Author Start: 01-24-2028 HPV TESTING HPV TESTING [facility] Start: 01-24-2028 PAP TESTING PAP TESTING [facility] Start: 01-24-2028 Screening for malign ant neoplasm of cervix Cervical Cancer Screening [facility] Start: 09-17-2025 RSV Vaccine (1 - Ris k 1-dose series) RSV Vaccine (1 - Risk 1-dose series) [facility] Start: 08-18-2025 End: 08-18-2025 Patient encounter procedure 08/18/2025 3:10 PM EDT Routine Office Visit OB/Gynecology [address] [place] [address] Elie Urias MD [address] [place] [address] OB OB/Gynecology Comment on above: OB Start: 08-18-2025 End: 08-18-2025 ambulatory 08/18/2025 2:45 PM EDT Results Only [facility] Laboratory [address] [place] [address] [facility] Comment on above: [facility] Start: 07-21-2025 End: 10-20-2025 ANEMIA REFLEX PANEL ANEMIA REFLEX PANEL Lab Routine Encounter for supervision of other normal in second trimester ([facility]) Expected: 07/21/2025, Expires: 10/20/2025 [facility] Comment on above: Expected: 07/21/2025 , Expires: 10/20/2025 Start: 07-21-2025 End: 07-21-2026 GESTATIONAL GLUCOSE SCREEN, 1-HOUR, 50 GRAM, NON-FASTING GESTATIONAL GLUCOSE SCREEN, 1-HOUR, 50 GRAM, NON-FASTING Lab Routine Screening for diabetes mellitus Expected: 07/21/2025, Expires: 07/21/2026 [facility] Work Phone: Comment on above: Expected: 07/21/2025 , Expires: 07/21/2026 Start: 07-21-2025 End: 07-21-2026 SYPHILIS TREPONEMAL W/REFLEX SYPHILIS TREPONEMAL W/REFLEX Lab Routine Encounter for supervision of other normal in second trimester ([facility]) Expected: 07/21/2025, Expires: 07/21/2026 [facility] Comment on above: Expected: 07/21/2025 , Expires: 07/21/2026 Start: 07-21-2025 End: 07-21-2025 Patient encounter procedure Maternal Medicine Comment on above: Repeat anatomy Repeat Anatomy/OB Start: 07-17-2025 Influenza vaccination [facility] Start: 07-06-2025 End: 07-06-2025 Patient encounter procedure 07/06/2025 8:00 AM EDT Routine Office Visit OB/Gynecology [address] [place] [address] Nidia Moise, DUNIA.LPN PER DIEM [address] [place] [address] ob OB/Gynecology Comment on above: ob Start: 07-04-2025 End: 07-04-2026 OBSTETRIC ULTRASOUND WHI OBSTETRIC ULTRASOUND WHI Anc Imaging Routine screening for malformation using ultrasonics (HCC) Expected: 07/04/2025, Expires: 07/04/2026 [facility] Work Phone: Comment on above: Expected: 07/04/2025 , Expires: 07/04/2026 Start: 06-29-2025 End: 06-29-2025 Patient encounter procedure 06/29/2025 3:40 PM EDT Routine Office Visit OB/Gynecology [address] [place] [address] Elie Urias MD [address] [place] [address] with uncertain dates, antepartum (HCC) [Z34.90] OB/Gynecology Comment on above: with uncer tain dates, antepartum (HCC) [Z34.90] Start: 06-29-2025 End: 06-29-2025 Patient encounter procedure 06/29/2025 2:30 PM EDT Routine Office Visit Maternal Medicine [address] [place] [address] with uncertain dates, antepartum (HCC) [Z34.90] Maternal Medicine Comment on above: with uncer tain dates, antepartum (HCC) [Z34.90] Start: 06-27-2025 End: 06-27-2025 Patient encounter procedure 06/27/2025 4:00 PM EDT Appointment Radiology [address] [place] [address] 16 weeks gestation of (HCC) [Z3A.16]; Breast pain, left [N64.4] Radiology Comment on above: 16 weeks gestation o f (HCC) [Z3A.16]; Breast pain, left [N64.4] Start: 06-02-2025 End: 06-02-2025 Patient encounter procedure 06/02/2025 3:50 PM EDT Routine Office Visit OB/Gynecology [address] [place] [address] Kalie Ellington MD [address] [place] [address] HIRAM AND US OB/Gynecology Comment on above: HIRAM AND US Start: 05-01-2025 End: 05-01-2025 Patient encounter procedure Maternal Medicine Comment on above: NT US and HIRAM Start: 03-31-2025 End: 06-30-2025 ANEMIA REFLEX PANEL ANEMIA REFLEX PANEL Lab Routine with uncertain dates, antepartum (HCC) Expected: 03/31/2025, Expires: 06/30/2025 [facility] Work Phone: Comment on above: Expected: 03/31/2025 , Expires: 06/30/2025 Start: 03-31-2025 End: 06-30-2025 Hemoglobin A1c in Blood HEMOGLOBIN A1C Lab Routine with uncertain dates, antepartum (HCC) Expected: 03/31/2025, Expires: 06/30/2025 [facility] Comment on above: Expected: 03/31/2025 , Expires: 06/30/2025 Start: 03-31-2025 End: 06-30-2025 Hepatitis B virus surface Ag [Presence] in Serum HEPATITIS B SURFACE ANTIGEN Lab Routine with uncertain dates, antepartum (HCC) Expected: 03/31/2025, Expires: 06/30/2025 [facility] Comment on above: Expected: 03/31/2025 , Expires: 06/30/2025 Start: 03-31-2025 End: 06-30-2025 Hepatitis C virus Ab [Presence] in Serum HEPATITIS C ANTIBODY IA WITH CONFIRMATION Lab Routine with uncertain dates, antepartum (HCC) Expected: 03/31/2025, Expires: 06/30/2025 [facility] Comment on above: Expected: 03/31/2025 , Expires: 06/30/2025 Start: 03-31-2025 End: 06-30-2025 HIV 1+2 Ab [Presence] in Serum or Plasma by Immunoassay HIV 1/2 COMBO WITH REFLEX TO DIFFERENTIATION Lab Routine with uncertain dates, antepartum (HCC) Expected: 03/31/2025, Expires: 06/30/2025 [facility] Comment on above: Expected: 03/31/2025 , Expires: 06/30/2025 Start: 03-31-2025 End: 03-31-2026 OBSTETRIC ULTRASOUND WHI OBSTETRIC ULTRASOUND WHI Anc Imaging Routine with uncertain dates, antepartum (HCC) Expected: 03/31/2025, Expires: 03/31/2026 [facility] Comment on above: Expected: 03/31/2025 , Expires: 03/31/2026 Start: 03-31-2025 End: 06-30-2025 RUBELLA IGG ANTIBODY RUBELLA IGG ANTIBODY Lab Routine with uncertain dates, antepartum (HCC) Expected: 03/31/2025, Expires: 06/30/2025 [facility] Comment on above: Expected: 03/31/2025 , Expires: 06/30/2025 Start: 03-31-2025 End: 06-30-2025 SYPHILIS TREPONEMAL W/REFLEX SYPHILIS TREPONEMAL W/REFLEX Lab Routine with uncertain dates, antepartum (HCC) Expected: 03/31/2025, Expires: 06/30/2025 [facility] Comment on above: Expected: 03/31/2025 , Expires: 06/30/2025 Start: 03-31-2025 End: 06-30-2025 TYPE + SCREEN TYPE + SCREEN Blood Bank Routine with uncertain dates, antepartum (HCC) Expected: 03/31/2025, Expires: 06/30/2025 [facility] Comment on above: Expected: 03/31/2025 , Expires: 06/30/2025 Start: 09-19-2024 End: 12-19-2024 Lipid 1996 panel - Serum or Plasma [facility] Work Phone: Comment on above: Expected: 09/19/2024 , Expires: 12/19/2024 Start: 09-19-2024 End: 12-19-2024 Thyrotropin [Units/volume] in Serum or Plasma [facility] Comment on above: Expected: 09/19/2024 , Expires: 12/19/2024 Start: 09-19-2024 End: 12-19-2024 Thyroxine (T4) free [Mass/volume] in Serum or Plasma [facility] Comment on above: Expected: 09/19/2024 , Expires: 12/19/2024 Start: 09-13-2024 Urine microalbumin profile [facility] Start: 07-17-2024 Covid-19 Vaccine ( season) Covid-19 Vaccine ( season) [facility] Start: 07-17-2024 Influenza vaccination Influenza Vacc ine (#1) [facility] Start: 08-02-2023 Patient discharge [facility] Start: 08-01-2023 Administration of medication [facility] Start: 08-01-2023 Application of ice collar, cap or bag [facility] Start: 08-01-2023 Catheterization of vein [facility] Start: 08-01-2023 Introduction of urin lori catheter [facility] Start: 08-01-2023 Measuring intake and output [facility] Start: 08-01-2023 Notification of physician [facility] Start: 08-01-2023 Procedure discontinued [facility] Start: 08-01-2023 Provision of activit y privileges [facility] Start: 08-01-2023 Vital signs measurements [facility] Start: 08-01-2023 [facility] Start: 08-01-2023 Admission procedure [facility] Start: 07-31-2023 End: 07-31-2024 OBSTETRIC ULTRASOUND WHI OBSTETRIC ULTRASOUND WHI Anc Imaging Routine Encounter for supervision of other normal in third trimester 41 weeks gestation of Expected: 07/31/2023, Expires: 07/31/2024 [facility] Work Phone: Comment on above: Expected: 07/31/2023 , Expires: 07/31/2024 Start: 07-17-2023 Influenza vaccination [facility] Start: 04-16-2023 End: 06-16-2023 CBC W Auto Differential panel - Blood CBC + DIFF Lab Routine 24 weeks gestation of Expected: 04/16/2023, Expires: 06/16/2023 [facility] Work Phone: Comment on above: Expected: 04/16/2023 , Expires: 06/16/2023 Start: 04-16-2023 End: 06-16-2023 GEST GLUC SCREEN, 1-HR, 50 GM, NON-FASTING GEST GLUC SCREEN, 1-HR, 50 GM, NON-FASTING Lab Routine 24 weeks gestation of Expected: 04/16/2023, Expires: 06/16/2023 [facility] Work Phone: Comment on above: Expected: 04/16/2023 , Expires: 06/16/2023 Start: 04-16-2023 End: 06-16-2023 SYPHILIS TOTAL W/REFLEX SYPHILIS TOTAL W/REFLEX Lab Routine 24 weeks gestation of Expected: 04/16/2023, Expires: 06/16/2023 [facility] Work Phone: Comment on above: Expected: 04/16/2023 , Expires: 06/16/2023 Start: 01-23-2023 End: 01-24-2024 OBSTETRIC ULTRASOUND WHI OBSTETRIC ULTRASOUND WHI Anc Imaging Routine with care elsewhere, antepartum Expected: 01/23/2023, Expires: 01/24/2024 [facility] Work Phone: Comment on above: Expected: 01/23/2023 , Expires: 01/24/2024 Start: 11-16-2022 DEPRESSION ASSESSMENT DEPRESSION ASS ESSMENT [facility] Start: 07-17-2022 Influenza vaccination INFLUENZA (#1) [facility] Start: 2022 HPV TESTING HPV TESTING [facility] Start: 2019 HPV Vaccine (1 - 3-d ose SCDM series) HPV Vaccine (1 - 3-dose SCDM series) [facility] Start: 2013 PAP TESTING PAP TESTING [facility] Start: 2011 Hepatitis B Vaccine (1 of 3 - 19+ 3-dose series) Hepatitis B Vaccine (1 of 3 - 19+ 3-dose series) [facility] Start: 2010 Anxiety Screening Anxiety Screening [facility] Start: 2010 Depression Screening Depression Scre ening [facility] Start: 2010 HEPATITIS C SCREENING HEPATITIS C SC REENING [facility] Start: 2010 HIV SCREENING HIV SCREENING [facility] Start: 1992 COVID-19 VACCINE (#1) COVID-19 VACCI NE (#1) [facility] Start: 1992 HEPATITIS B (1 of 3 - 3-dose series) HEPATITIS B (1 of 3 - 3-dose series) [facility] Start: 1992 Hepatitis B Vaccine (1 of 3 - 3-dose series) Hepatitis B Vaccine (1 of 3 - 3-dose series) [facility] Bacteria identified in Urine by Culture BACTERIAL CULTURE, URINE Microbiology Routine with uncertain dates, antepartum ([facility]) 03/31/2025 9:52 AM EDT [facility] Chlamydia trachomatis+Neisseria gonorrhoeae DNA [Presence] in Unspecified specimen by REJI with probe detection GONORRHEA/CHLAMYDIA NAAT Lab Routine with uncertain dates, antepartum ([facility]) 03/31/2025 9:52 AM EDT [facility] PAP FLUID CERVICAL SCREENING PAP FLUID CERVICAL SCREENING Lab Routine Encounter for screening for malignant neoplasm of cervix Special screening examination for human papillomavirus (HPV) 01/23/2023 4:22 PM EST [facility] Work Phone: Patient Education After a Vaginal [facility] Work Phone: Patient referral [facility] Work Phone: ROUTINE, GR OUP B STREP PCR ROUTINE, GROUP B STREP PCR Microbiology Routine 36 weeks gestation of 07/09/2023 8:31 AM EDT [facility] Work Phone: End: 07-02-2026 US Breast - left limited US BREAST LTD LEFT Radiology Routine 16 weeks gestation of (HCC) Breast pain, left 1 Occurrences starting 06/02/2025 until 07/02/2026 [facility] Work Phone: Comment on above: 1 Occurrences starti ng 06/02/2025 until 07/02/2026 [facility] Immunizations Immunization Date Immunization Notes Care Provider Danita jj 09-13-2014 tetanus toxoid, redu angie diphtheria toxoid, and acellular pertussis vaccine, adsorbed Jasmin Núñez MD Work Phone: [facility] Work Phone: Payers Date Payer Category Payer Self-pay 2021 [employer] BLUE ACCE SS PPO [id number] 2021 Unknown [id number] 2021 Unknown [id number] 1992 Unknown [id number] Unknown [id number] Social History Date Type Detail Facility Start: 01-22-2023 End: 12-01-2024 Tobacco smoking status NHIS Never smoked tobacco [facility] Work Phone: Start: 06-29-2022 End: 07-21-2025 Alcohol intake Current non-drinker of alcohol (finding) [facility] Start: 09-13-2014 Alcohol Comment Occasional bee r or wine. rare use [facility] Start: 1990 Sex Assigned At Not on file [facility] Start: 01-22-2023 Tobacco use and exposure Smoke less tobacco non-user [facility] Work Phone: Start: 01-22-2023 Education 17 [facility] Start: 11-07-2022 [facility] Start: 05-21-2023 End: 09-19-2024 History of Social function [facility] Start: 05-21-2023 End: 09-19-2024 Tobacco use panel [facility] Start: 1990 Sex Assigned At Female W [facility] Start: 10-17-2012 National Score (1-10 0), lower number is lower risk 59 [facility] Sexual Orientation Kendrickmane Arteaga Sex Female (finding) Kendrick baez Start: 03-30-2025 Gender identity Identifies as female gender (finding) [facility] Goals Date Patient Goal Desired Activity /State Personal health goal Personal health goal Functional Status Date Assessment Result Facility 09-13-2014 Are you deaf, or do you have serious difficulty hearing No 09/13/2014 10:37 AM Mindy Albert MA No [facility] 09-13-2014 Are you blind, or do you have serious difficulty seeing, even when wearing glasses No 09/13/2014 10:37 AM Mindy Albert MA [facility] 09-13-2014 Do you have serious difficulty walking or climbing stairs No 09/13/2014 10:37 AM Mindy Albert MA [facility] 09-13-2014 Do you have difficul ty dressing or bathing No 09/13/2014 10:37 AM Mindy Albert MA [facility] 09-13-2014 Because of a physica l, mental, or emotional condition, do you have difficulty doing errands alone such as visiting a physician's office or shopping No 09/13/2014 10:37 AM Mindy Albert MA [facility] Mental Status Date Assessment Result Facility 09-13-2014 Because of a physica l, mental, or emotional condition, do you have serious difficulty concentrating, remembering, or making decisions No 09/13/2014 10:37 AM Mindy Albert MA No [facility] Clinical Notes 01-13-2023 to 07-21-2025 Quick Notes - Jennifer Lutz APRN.CNM - 07/21/2025 9:09 AM EDTPrenatal Quick Notes - Jennifer Lutz APRN.CNM - 07/21/2025 9:09 AM EDTPatient InstructionsPatient Instructions Note Date & Type Note Facility 07-21-2025 Note Indication Follow-up evaluation to complete anatomic survey Impression REMOTE READ The patient is referred for completion of the anatomic survey. - Single, live, intrauterine . - No malformations were visualized on a follow-up anatomic survey. - Anatomic survey was completed today. - The amniotic fluid volume is normal amount. - The placenta is posterior, fundal. - Not all structural malformations can be detected by ultrasound examination. Recommendations Additional follow-up as clinically indicated. Maternal Assessment Height 178 cm Height (ft) 5 ft Height (in) 10 in Physical Exam Initial weight (lb) 191 lb Initial BMI 27.41 kg/m Maternal assessment other: 5 Para 4 Growth Overview Exam date GA BPD (mm) HC (mm) AC (mm) FL (mm) HL (mm) EFW (g) 07/04/2025 21w 2d 49.3 33% 189.5 48% 169.8 65% 34.6 50% 33.9 55% 424 52% Method Transabdominal ultrasound examination, Transabdominal ultrasound examination Iqbal . Number of fetuses: 1 Dating LMP on: 02/05/2025 GA by LMP 23 w + 5 d CIARA by LMP: 11/12/2025 GA by prior assessment 23 w + 5 d CIARA by prior assessment: 11/12/2025 Assigned: based on stated CIARA, selected on 07/21/2025 Assigned GA 23 w + 5 d Assigned CIARA: 11/12/2025 General Evaluation Cardiac activity present. FHR 135 bpm. movements: present. Presentation: cephalic Placenta: Placental site: posterior, fundal Umbilical cord: Cord vessels: 3 vessel cord Amniotic fluid: Amount of AF: normal amount. MVP 5.0 cm Anatomy Lateral ventricles: normal Cavum septi pellucidi: normal Cerebellum: normal Cisterna magna: normal Profile: normal 4-chamber view: normal RVOT view: normal LVOT view: normal 3-vessel view: normal Heart / Thorax Situs: situs solitus (normal) Diaphragm: normal Stomach: normal Kidneys: normal Bladder: normal Cervical spine: normal Thoracic spine: normal Lumbar spine: normal Sacral spine: normal Gender: Unspecified Wants to know sex: no Maternal Structures Uterus / Cervix Cervical length 30.9 mm Performed By: Silvina Barraza RDMS, RVT Read By: Val Ford M.D. MATERNAL MEDICINE 07-21-2025 Progress note Formatting of t his note might be different from the original. S: Segun Musa is a 35 year old female who presents at 23 weeks gestation for a repeat anatomy US and HIRAM. Needed further images of spine. Positive movements. Denies headache, visual changes, chest pain, shortness of breath, vaginal bleeding, leakage of fluid, or dysuria. Feeling well, no complaints. O: See flow sheet Gen: No apparent distress Abd: Gravid, non tender ASSESSMENT/PLAN: 1. Encounter for supervision of other normal in second trimester 2. 23 weeks gestation of 3. Screening for diabetes mellitus - Continue vitamin PO daily - Opted out of ASA - Discussed The Fresh Test and how to obtain - RTO 4 weeks or sooner if needed Jennifer Lutz APRN.CNM [facility] Work Phone: 07-21-2025 Miscellaneous Notes S: Segun Musa is a 35 year old female who presents at 23 weeks gestation for a repeat anatomy US and HIRAM. Needed further images of spine. Positive movements. Denies headache, visual changes, chest pain, shortness of breath, vaginal bleeding, leakage of fluid, or dysuria. Feeling well, no complaints. O: See flow sheet Gen: No apparent distress Abd: Gravid, non tender ASSESSMENT/PLAN: 1. Encounter for supervision of other normal in second trimester 2. 23 weeks gestation of 3. Screening for diabetes mellitus - Continue vitamin PO daily - Opted out of ASA - Discussed The Fresh Test and how to obtain - RTO 4 weeks or sooner if needed Jennifer Lutz APRN.CNM documented in this encounter [facility] 07-21-2025 Instructions Venecia Vogt MA - 07/21/2025 8:01 AM EDT SEQUENTIAL SCREENINGS The [facility] offers sequential screenings for women who are interested in screenings for chromosomal abnormalities and certain defects during a . The sequential screen combines ultrasound and blood tests to determine the risk of chromosomal abnormalities, including Down's Syndrome (Trisomy 21) and Trisomy 18, as well as open neural tube defects including spina bifida. Ultrasound examination is performed between 11 weeks and 13 weeks gestational age. Blood tests are drawn after the ultrasound and again later in the between 15 and 21 weeks gestational age. Please let your physician know if you are interested in this testing. It will require an appointment with our podiatric technician. This is not an ultrasound performed by a physician in our office during a routine visit. SIGNS AND SYMPTOMS OF LABOR 1. Contractions every 10 minutes or more often 2. Clear, pink, or brownish fluid (water) leaking from vagina 3. Feeling that baby is pushing down, pressure 4. Low, dull backache 5. Cramps that feel like a period 6. Cramps with or without diarrhea If you notice any of the above symptoms, contact our office at [phone] and ask to speak with a nurse. After hours, you can call doctors registry at [phone] OR call [facility] at [phone] and ask to have the doctor mental health practitioner paged. If you consider this an emergency, dial 6-1-8 or go to your nearest emergency department. NEED HELP? Are you dealing with a violent or abusive relationship? Are you a victim of rape or sexual assult? Call [facility] [place] ([facility] 24 hour Crisis Hotline: 507.744.6796 or 454-442-5367. MANUAL Your Guide to a Healthy manual is now on-line. Visit [email or web address] to download your free copy documented in this encounter [facility] 07-06-2025 Telephone encounter Note FYI see note below. Next scheduled for f/u anatomy and OB visit with CP on 07/21/25. Daphne Perez RN [facility] 07-06-2025 Miscellaneous Notes FYI see note below. Next scheduled for f/u anatomy and OB visit with CP on 07/21/25. Daphne Perez RN Called pt to suggest HIRAM appt for this week, last HIRAM appt 06/02 patient feels that its not necessary and refuse appt. documented in this encounter [facility] 07-06-2025 Telephone encounter Note Called pt to suggest HIRAM appt for this week, last HIRAM appt 06/02 patient feels that its not necessary and refuse appt. [facility] 07-04-2025 Note HNO ID: [id number] Author: SHERLEY PETER RDMS Service: ? Author Type: Bakery Decorator Type: Progress Notes Filed: 07/06/2025 13:45 Note Text: Radiology Service Progress Note PATIENT NAME: Segun Musa DATE OF SERVICE: July 06, 2025 TIME: 1:45 PM PATIENT IDENTITY VERIFICATION COMPLETED USING TWO (2) IDENTIFIERS: Name and Date of confirmed by patient verbally. FALL SCREENING: Has the patient had 2 falls in the last year or 1 fall with injury or currently using an Ambulatory Assistive Device (Walker, Cane, Wheelchair, Crutches, etc.)? No PATIENT GENDER DATA: Assigned female at . status: : Yes. Urinalysis hCG results are as follows: Positive Radiologist notified: DR Hernandez status: YES aware. PATIENT RELEVANT IMPLANT DATA REVIEWED: Not Applicable PATIENT PRESENTS WITH AN IMPLANTABLE OR ATTACHED FIRST ASSISTANT MANAGER: No RADIOLOGY DEPARTMENT: Ultrasound PERIPHERAL IV DATA: Not applicable SIGNED BY: Sherley Peter RDMS RVT July 06, 2025 1:45 PM [facility] 06-02-2025 Progress note Formatting of t his note might be different from the original. S: Segun Musa is a 35 year old female who presents at 11/12/2025, by Last Menstrual Period for a routine visit. Denies headache, visual changes, chest pain, shortness of breath, vaginal bleeding, leakage of fluid, or dysuria. Feeling well, no complaints. O: See flow sheet Gen: No apparent distress Abd: Gravid, nontender Breast pain still present sine last visit. Requests US Anatomy scheduled next month ASSESSMENT/PLAN: 1. 16 weeks gestation of (HCC) - ICD9: V22.2, ICD10: Z3A.16 (primary diagnosis) - US BREAST LTD LEFT 2. Encounter for supervision of other normal in second trimester ([facility]) - ICD9: V22.1, ICD10: Z34.82 3. Breast pain, left - ICD9: 611.71, ICD10: N64.4 - US BREAST LTD LEFT Kalie Ellington MD [facility] 06-02-2025 Miscellaneous Notes S: Segun Musa is a 35 year old female who presents at 11/12/2025, by Last Menstrual Period for a routine visit. Denies headache, visual changes, chest pain, shortness of breath, vaginal bleeding, leakage of fluid, or dysuria. Feeling well, no complaints. O: See flow sheet Gen: No apparent distress Abd: Gravid, nontender Breast pain still present sine last visit. Requests US Anatomy scheduled next month ASSESSMENT/PLAN: 1. 16 weeks gestation of ([facility]) - ICD9: V22.2, ICD10: Z3A.16 (primary diagnosis) - US BREAST LTD LEFT 2. Encounter for supervision of other normal in second trimester ([facility]) - ICD9: V22.1, ICD10: Z34.82 3. Breast pain, left - ICD9: 611.71, ICD10: N64.4 - US BREAST LTD LEFT Kalie Ellington MD documented in this encounter [facility] 06-02-2025 Instructions Tiffanie Colbert MA - 06/02/2025 3:56 PM EDT SEQUENTIAL SCREENINGS The [facility] offers sequential screenings for women who are interested in screenings for chromosomal abnormalities and certain defects during a . The sequential screen combines ultrasound and blood tests to determine the risk of chromosomal abnormalities, including Down's Syndrome (Trisomy 21) and Trisomy 18, as well as open neural tube defects including spina bifida. Ultrasound examination is performed between 11 weeks and 13 weeks gestational age. Blood tests are drawn after the ultrasound and again later in the between 15 and 21 weeks gestational age. Please let your physician know if you are interested in this testing. It will require an appointment with our podiatric technician. This is not an ultrasound performed by a physician in our office during a routine visit. SIGNS AND SYMPTOMS OF LABOR 1. Contractions every 10 minutes or more often 2. Clear, pink, or brownish fluid (water) leaking from vagina 3. Feeling that baby is pushing down, pressure 4. Low, dull backache 5. Cramps that feel like a period 6. Cramps with or without diarrhea If you notice any of the above symptoms, contact our office at [phone] and ask to speak with a nurse. After hours, you can call doctors registry at [phone] OR call [facility] at [phone] and ask to have the doctor mental health practitioner paged. If you consider this an emergency, dial 9-8-3 or go to your nearest emergency department. NEED HELP? Are you dealing with a violent or abusive relationship? Are you a victim of rape or sexual assult? Call [facility] ([place]) 24 hour Crisis Hotline: 702.629.5127 or 798-880-0481. MANUAL Your Guide to a Healthy manual is now on-line. Visit [email or web address] to download your free copy documented in this encounter [facility] 05-01-2025 Note HNO ID: [id number] Author: ELIE URIAS MD Service: ? Author Type: Physician Type: Progress Notes Filed: 05/04/2025 16:52 Note Text: SW- No pain, vb, lof. Some nausea and fatigue. Feels a hard, tender lump in left breast x 2 weeks. No other breast changes that she has noticed PE: Gen- NAD, well appearing Breast- Normal breast exam. No skin or nipple changes, no nipple discharge, no masses palpated, no lymphadenopathy noted Abd- Soft, NT See flowsheet A/p 12 wk gestation - Breast tenderness: Discussed rest and Tylenol PRN. Normal breast exam today. Discussed if pain persistent, can check breast US. Reviewed reasons to call - Declines NIPT and carrier screening - NOB labs today - Schedule anatomy US - RTO 4 wks Elie Urias DO [facility] 05-01-2025 History of Present illness Narrative SW- No pain, vb, lof. Some nausea and fatigue. Feels a hard, tender lump in left breast x 2 weeks. No other breast changes that she has noticed PE: Gen- NAD, well appearing Breast- Normal breast exam. No skin or nipple changes, no nipple discharge, no masses palpated, no lymphadenopathy noted Abd- Soft, NT See flowsheet A/p 12 wk gestation - Breast tenderness: Discussed rest and Tylenol PRN. Normal breast exam today. Discussed if pain persistent, can check breast US. Reviewed reasons to call - Declines NIPT and carrier screening - NOB labs today - Schedule anatomy US - RTO 4 wks Elie Urias DO documented in this encounter [facility] 05-01-2025 Instructions Love Molina MA - 05/01/2025 3:45 PM EDT SEQUENTIAL SCREENINGS The [facility] offers sequential screenings for women who are interested in screenings for chromosomal abnormalities and certain defects during a . The sequential screen combines ultrasound and blood tests to determine the risk of chromosomal abnormalities, including Down's Syndrome (Trisomy 21) and Trisomy 18, as well as open neural tube defects including spina bifida. Ultrasound examination is performed between 11 weeks and 13 weeks gestational age. Blood tests are drawn after the ultrasound and again later in the between 15 and 21 weeks gestational age. Please let your physician know if you are interested in this testing. It will require an appointment with our podiatric technician. This is not an ultrasound performed by a physician in our office during a routine visit. SIGNS AND SYMPTOMS OF LABOR 1. Contractions every 10 minutes or more often 2. Clear, pink, or brownish fluid (water) leaking from vagina 3. Feeling that baby is pushing down, pressure 4. Low, dull backache 5. Cramps that feel like a period 6. Cramps with or without diarrhea If you notice any of the above symptoms, contact our office at [phone] and ask to speak with a nurse. After hours, you can call doctors registry at [phone] OR call [facility] at [phone] and ask to have the doctor mental health practitioner paged. If you consider this an emergency, dial 9-1-7 or go to your nearest emergency department. NEED HELP? Are you dealing with a violent or abusive relationship? Are you a victim of rape or sexual assult? Call [facility] ([place]) 24 hour Crisis Hotline: 491.311.8614 or 276-830-6901. MANUAL Your Guide to a Healthy manual is now on-line. Visit [email or web address] [email or web address] [email or web address] to download your free copy documented in this encounter [facility] 03-31-2025 Progress note Formatting of t his note might be different from the original. NANNETTE, see progress note. Declines NIPT and uncertain if she would like first trimester anatomy US. Considering homebirth, uncertain at this time and does not have a helper teacher. PN labs next visit. Sherley Adamson APRN.CNM [facility] 03-31-2025 Miscellaneous Notes NANNETTE, see progress note. Declines NIPT and uncertain if she would like first trimester anatomy US. Considering homebirth, uncertain at this time and does not have a helper teacher. PN labs next visit. Sherley Adamson APRN.CNM documented in this encounter [facility] 03-31-2025 Note HNO ID: [id number] Author: JAE LERMA MA Service: ? Author Type: Vascular Tech Type: Progress Notes Filed: 03/31/2025 12:36 Note Text: OB point of care ultrasound was performed. See imaging tab for details. Jae Lerma MA [facility] 03-31-2025 History of Present illness Narrative OB point of care ultrasound was performed. See imaging tab for details. Jae Lerma MA INITIAL OB ASSESSMENT HPI: Segun is a 34 year old White Female here to establish Obstetrical Care. Patient's last menstrual period was 02/05/2025. from OB Dating Form. was planned Complaints: No OB History Gravida5 Para4 Term4 Preterm0 AB0 Living4 SAB0 IAB0 Ectopic0 Multiple0 Live Births4 Comment: menarche-14 Previous history: Prior : No History of 4th degree laceration: No History of shoulder dystocia: No History of Hypertensive disorders including pre-eclampsia or gestational hypertension: No History of gestational diabetes: No Patient's Risk Screening for delivery: Have you had a prior iqbal between 20w and 36w6d? No How many pregnancies have you had before? 4 Did you have a previous baby with a GBS Infection? No Please select all that apply for any prior : N/A MEDICAL/PSYCHOSOCIAL HISTORY: History of hemorrhage or bleeding concerns: No Thyroid Disease: No History of chronic hypertension: No History of pre-existing diabetes: No No results found for: ABORHD BMI 27.41 kg/(m^2) Last Pap: 01/30/2023 History of abnormal pap: No Prior treatment for cervical dysplasia: none. Last HPV: 01/27/2023 History of STDs: N/A Partner History of STDs: None Did you have a partner with Herpes? No Tobacco use: No E-Cigarette/Vaping Use: No Caffeine use: No Drug use: No Alcohol use: No Multivitamin with Folic acid: Yes Would refuse blood transfusion if medically necessary: No Social Needs: How often does this describe you? I don't have enough money to pay my bills: Never Within the past 12 months, have you worried that your food would run out before you had money to buy more? Never In the past 12 months, has lack of reliable transportation kept you from going to medical appointments or work, or from getting things needed for daily living? Never In the past 12 months, have you had any concerns about having a place to live, or about the condition or quality of your housing? Never Would you like more information on any of the following (please check all that apply)? Not interested Social History: Do you have any history of depression, anxiety, PTSD, or other mood problems? No Do you have a history of abuse or trauma that may impact your experience? No Are you currently employed? No Depression/Anxiety Screening: denies symptoms of depression. OB Depression and Anxiety Screening- This Encounter Over the past 2 weeks have you felt down, depressed, or hopeless? Negative Over the past two weeks, have you felt little interest or pleasure in doing things? Negative Feeling nervous, anxious or on edge 0-Not at all Not being able to stop or control worrying 0-Not al all Anxiety Pre-Screening Total (If >/= 3 additional questions will be reviewed) 0 Genetic Screening: Partner present: No Patient verbalized knowledge of partner family health history: Yes Do you or your partner have any personal or family history of defects not previously discussed: No Do you have history of a complicated by anomaly, genetic condition, or demise: No Preeclampsia Risk Screening: Screening for prevention of preeclampsia: High risk factors: None Moderate risk ractors: None OB Risk Screening: Marital Status: Partner: Name: Renard 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 LYSINE ORAL Take by mouth. No current facility-administered medications for this visit. Allergies As of Date: 03/31/2025 (No Known Allergies) Fully Assessed 03/31/2025 Does patient have penicillin allergy: No REVIEW OF SYSTEMS: GENERAL: Negative for: Fever or Chills HEENT: Negative for: Headache, Impaired Vision, Ringing in Ears, Nosebleeds NECK: Negative for: Swelling, Pain, Stiffness RESPIRATORY: Negative for: Cough, Shortness of breath, Wheezing GASTROINTESTINAL: Negative for: Heartburn, Constipation, Diarrhea, Blood in stool, Vomiting MUSCULOSKELETAL: Negative for: Muscle or joint pain, stiffness, Joint swelling NEUROLOGIC/PSYCHIATRIC: Negative for: Weakness, Paralysis, Numbness, Tingling, Tremor, Anxiety, Depression, Memory loss SKIN: Negative for: Rash, Itching GENITOURINARY: Negative for: vaginal itching, vaginal discharge, hematuria or dysuria SENSITIVE EXAM: The sensitive examination was discussed with the Patient or Patient's Authorized Plc Engineer. As applicable, any other physician, advance practice provider, medical student, or other health professional student that will be observing or involved in the sensitive examination for educational or training purposes was discussed with the Patient or Authorized Plc Engineer. The Patient or Authorized Plc Engineer has agreed to proceed with the sensitive examination. (Sensitive examination includes inspection and/or palpation of the breasts, pelvis, prostate and anorectal regions). PHYSICAL EXAM: BP 102/62 Ht 5' 10 (1.78m) Wt 191 lb (86.6kg) LMP 02/05/2025 BMI 27.41 kg/(m^2). GENERAL: pleasant in no apparent distress DERMATOLOGY: Normal, without lesions, non-icteric, and non-hirsute NECK: Supple, full range of motion, no adenopathy, and thyroid normal CHEST: Normal inspiratory effort BREAST: soft, non-tender, symmetric, no dominant mass, normal nipple-areolar complex, no lymphadenopathy, and no nipple discharge ABDOMEN: soft, non-tender, and no masses NEURO: alert and oriented x3,exam grossly non-focal PELVIS: External genitalia normal without lesions. Perineal body intact. No vaginal or cervical lesions. Cervix closed. Uterus 8 week size. No adnexal masses or tenderness. Clinical Pelvimetry: Pelvimetry clinically assessed as adequate Limited OB ultrasound exam: single intrauterine , positive cardiac activity, crown-rump length 7w2d, and normal bilateral adnexa LMP 7w5d, CIARA: 11/12/25 by LMP ASSESSMENT: 34 year old at 7w5d wks gestational age PLAN: 1) Patient oriented to practice. Patient given new OB orientation folder. Discussed nutrition, folic acid supplementation, dietary guidelines, exercise, smoking, alcohol, caffeine, and drug use. Discussed gestational weight gain guidelines. Discussed routine OB labs including STD/HIV. Discussed how to access Your guide to a health and the Epic Cupid Analyst. 2) Screening: Hemoglobin A1C: ordered Baby Aspirin: The patient has been counseled about the potential benefits of low dose aspirin in and our recommendation that this be offered to all patients, regardless of whether they meet the high risk criteria specified above. She uncertain Aneuploidy Screening: Discussed aneuploidy screening, nuchal translucency/first trimester early anatomy ultrasound and NIPT. The risks/benefits and limitations of NIPT/aneuploidy screening were reviewed including the potential for false negative and false positive results. The availability of genetic counseling was reviewed. Information on aneuploidy screening was provided. The patient is uncertain. She will call back if she wants to proceed with screening. Pt aware of timing. Myriad Carrier Screening: Discussed myriad carrier screening. We discussed the availability of professional-society guided carrier screening and reviewed the conditions screened and limitations of screening. The availability of genetic counseling was reviewed. Information on carrier screening was provided. The patient Declines 3) Patient offered option of Virtual Visits. Patient prefers in person visits. 4) Uncertain if she will get first trimester anatomy US. Follow up in 4 weeks or sooner prn. Sherley Adamson APRN.CNM documented in this encounter [facility] 03-30-2025 Note HNO ID: [id number] Author: SHERLEY ADAMSON APRN.CNM Service: ? 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 Patient's last menstrual period was 02/05/2025. from OB Dating Form. was planned Complaints: No OB History Gravida5 Para4 Term4 Preterm0 AB0 Living4 SAB0 IAB0 Ectopic0 Multiple0 Live Births4 Comment: menarche-14 Previous history: Prior : No History of 4th degree laceration: No History of shoulder dystocia: No History of Hypertensive disorders including pre-eclampsia or gestational hypertension: No History of gestational diabetes: No Patient's Risk Screening for delivery: Have you had a prior iqbal between 20w and 36w6d? No How many pregnancies have you had before? 4 Did you have a previous baby with a GBS Infection? No Please select all that apply for any prior : N/A MEDICAL/PSYCHOSOCIAL HISTORY: History of hemorrhage or bleeding concerns: No Thyroid Disease: No History of chronic hypertension: No History of pre-existing diabetes: No No results found for: ABORHD BMI 27.41 kg/(m2) Last Pap: 01/30/2023 History of abnormal pap: No Prior treatment for cervical dysplasia: none. Last HPV: 01/27/2023 History of STDs: N/A Partner History of STDs: None Did you have a partner with Herpes? No Tobacco use: No E-Cigarette/Vaping Use: No Caffeine use: No Drug use: No Alcohol use: No Multivitamin with Folic acid: Yes Would refuse blood transfusion if medically necessary: No Social Needs: How often does this describe you? I don't have enough money to pay my bills: Never Within the past 12 months, have you worried that your food would run out before you had money to buy more? Never In the past 12 months, has lack of reliable transportation kept you from going to medical appointments or work, or from getting things needed for daily living? Never In the past 12 months, have you had any concerns about having a place to live, or about the condition or quality of your housing? Never Would you like more information on any of the following (please check all that apply)? Not interested Social History: Do you have any history of depression, anxiety, PTSD, or other mood problems? No Do you have a history of abuse or trauma that may impact your experience? No Are you currently employed? No Depression/Anxiety Screening: denies symptoms of depression. OB Depression and Anxiety Screening- This Encounter Over the past 2 weeks have you felt down, depressed, or hopeless? Negative Over the past two weeks, have you felt little interest or pleasure in doing things?? Negative Feeling nervous, anxious or on edge 0-Not at all Not being able to stop or control worrying 0-Not al all Anxiety Pre-Screening Total (If >/= 3 additional questions will be reviewed) 0 Genetic Screening: Partner present: No Patient verbalized knowledge of partner family health history: Yes Do you or your partner have any personal or family history of defects not previously discussed: No Do you have history of a complicated by anomaly, genetic condition, or demise: No Preeclampsia Risk Screening: Screening for prevention of preeclampsia: High risk factors: None Moderate risk ractors: None OB Risk Screening: Marital Status: Partner: Name: Renard 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 LYSINE ORAL Take by mouth. No current facility-administered medications for this visit. Allergies As of Date: 03/31/2025 (No Known Allergies) Fully Assessed 03/31/2025 Does patient have penicillin allergy: No REVIEW OF SYSTEMS: GENERAL: Negative for: Fever or Chills HEENT: Negative for: Headache, Impaired Vision, Ringing in Ears, Nosebleeds NECK: Negative for: Swelling, Pain, Stiffness RESPIRATORY: Negative for: Cough, Shortness of breath, Wheezing GASTROINTESTINAL: Negative for: Heartburn, Constipation, Diarrhea, Blood in stool, Vomiting MUSCULOSKELETAL: Negative for: Muscle or joint pain, stiffness, Joint swelling NEUROLOGIC/PSYCHIATRIC: Negative for: Weakness, Paralysis, Numbness, Tingling, Tremor, Anxiety, Depression, Memory loss SKIN: Negative for: Rash, Itching GENITOURINARY: Negative for: vaginal itching, vaginal discharge, hematuria or dysuria SENSITIVE EXAM: The sensitive examination was discussed with the Patient or Patient's Authorized Plc Engineer. As applicable, any ot (more content not included)... [facility] 03-30-2025 Instructions Petra Hall MA - 03/30/2025 2:02 PM EDT Please select the following link to access the [facility] Your Guide to a Healthy . [email or web address] documented in this encounter [facility] 09-19-2024 Instructions Nidia Moise APRN.CNP - 09/19/2024 4:11 PM EST A 3-dose schedule is recommended for people who get the first dose on or after their 15th birthday, and for people with certain immunocompromising conditions. In a 3-dose series, the second dose should be given 1-2 months after the first dose, and the third dose should be given 6 months after the first dose (0, 1-2, 6-month schedule). The minimum intervals are 4 weeks between the first and second dose, 12 weeks between the second and third doses, and 5 months between the first and third doses. If a vaccine dose is administered after a shorter interval, it should be re-administered after another minimum interval has elapsed since the most recent dose. If the vaccination schedule is interrupted, vaccine doses do not need to be repeated (no maximum interval). documented in this encounter [facility] 09-19-2024 History of Present illness Narrative Segun is a 34 year old who presents for an annual gynecologic exam without complaints. Has noticed some weight gain. Needs labs drawn for insurance for work. Menses: cycles monthly, lasting 5-6 days Contraception: none HPV vaccine: Yes, 2/3 Last Pap: 01/30/2023 normal HPV: 01/27/2023 negative History of abnormal pap: No Last mammogram: never Sexually active: Yes Patient concerns for STD exposure: No. 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 50 Diabetes Maternal Grandmother No Known Problems Maternal Grandfather Dementia Paternal Grandmother other (bladder cancer) Paternal Grandfather No Known Problems Daughter No Known Problems Daughter No Known Problems Son SOCIAL HISTORY Social History Tobacco Use Smoking status: Never Smokeless tobacco: Never Vaping Use Vaping status: Never Used Substance Use Topics Alcohol use: No Comment: Occasional beer or wine. rare use Drug use: No REVIEW OF SYSTEMS Abdomen: No abdominal pain, nausea, vomiting, diarrhea, or constipation. No bloating, early satiety, indigestion, or increased flatulence. Bladder: No dysuria, gross hematuria, urinary frequency, urinary urgency, or incontinence. Breast: No breast lumps, nipple d/c, overlying skin changes, redness or skin retraction. Allergies and current medication updated:Yes SENSITIVE EXAM: The sensitive examination was discussed with the Patient or Patient's Authorized Plc Engineer. As applicable, any other physician, advance practice provider, medical student, or other health professional student that will be observing or involved in the sensitive examination for educational or training purposes was discussed with the Patient or Authorized Plc Engineer. The Patient or Authorized Plc Engineer has agreed to proceed with the sensitive examination. (Sensitive examination includes inspection and/or palpation of the breasts, pelvis, prostate and anorectal regions). EXAM: BP 102/70 Ht 5' 9.25 (1.76m) Wt 195 lb (88.5kg) LMP 08/25/2024 BMI 28.59 kg/(m^2). GENERAL: pleasant, female in no apparent distress HEENT: Normocephalic, atraumatic, mucus membranes moist, and no lesions NECK: Supple, full range of motion, no adenopathy DERMATOLOGY: Normal, without lesions, non-icteric, and non-hirsute BREAST: soft, non-tender, symmetric, no dominant mass, normal nipple-areolar complex, no lymphadenopathy, and no nipple discharge CHEST: Normal inspiratory effort ABDOMEN: soft, non-tender, and no masses PELVIC: external genitalia normal, normal Bartholin's glands, urethra, [place]'s glands, no vulvar lesions, no cervical lesions, + ectropic, good vaginal support, physiologic discharge present, normal appearing perineal body and perianal region BIMANUAL: uterus normal size, shape and consistency, no adnexal masses, and non-tender RECTOVAGINAL: deferred. NEURO: alert and oriented x3,exam grossly non-focal EXTREMITIES: normal ASSESSMENT/PLAN: 1) Health maintenance: Pap/HPV up to date 2022. Mammogram starting age 40. Nutrition, exercise and routine health maintenance exams reviewed. Lipids/glucose: ordered HPV vaccine: 2/3 doses 2) Contraception: none. Reviewed risk of and recommend taking PNV with folic acid. 3) STD screening: Accepts STD screening: HIV, Syphilis and Hepatitis. 4) Follow up one year or sooner as needed Grandmother with breast cancer in 50s. Discussed genetic counseling available if she would like consult. Nidia Moise APRN.LPN PER DIEM documented in this encounter [facility] 08-03-2023 Miscellaneous Notes Patient delivered 08/01/23. Daphne Perez RN Noted thanks Pt needs US for KYRIE, NST and appointment this week thanks Yes but would need formal US for AFV and NST right at or day or so before 41 weeks. order placed. Keep next appointemtn. Mindy Delvalle MD Induction orders were filled out by KJMacario In nurse phone room. Kalie Cheney RN Ob patient is 40w0d andd seen at office yesterday. Pt. was to call back if she wanted to schedule an induction at 41 weeks. Patient asking if she can schedule her induction on 08/10/2023 at 41w3d documented in this encounter [facility] 08-03-2023 History of Present illness Narrative Patient delivered via by Dr. Delvalle on 08/01/23 at [facility]. See OB history. 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 She denied any vaginal bleeding or leaking of fluid. is uncomplicated to date Maternal Data Information Final CIARA: 07/31/23 [facility]ational age: 40 1/[facility] History no medical history Allergy/AdvReac Type Severity Reaction Status Date / Time No Known Allergies Allergy Verified 08/01/23 09:17 Family History no significant family his Surgical History no surgical history ROS Constitutional Constitutional: Denies fatigue, fever(s) or malaise Eyes Eyes: Denies change in vision ENT HEENT: Denies dizziness or headache(s) Cardiovascular Cardiovascular: Denies chest pain, dyspnea or lightheadedness Respiratory/Chest Respiratory/Chest: Denies cough or dyspnea Gastrointestinal Gastrointestinal: Denies change in bowel habits Genitourinary Genitourinary: Denies burning urination or genital lesions Integumentary Integumentary: Denies rash Neurologic Neurologic: Denies confusion, dizziness, headache(s), numbness or weakness Vital Signs Vital Signs Vital Signs: 08/01/23 07:14 08/01/23 07:14 08/01/23 07:18 Pulse Rate 74 Blood Pressure 122/78 H BP Systolic 122 BP Diastolic 78 Pulse Ox 100 08/01/23 07:18 08/01/23 07:19 08/01/23 07:19 Pulse Rate 78 69 Blood Pressure BP Systolic BP Diastolic Pulse Ox 100 08/01/23 08:14 08/01/23 08:14 08/01/23 08:15 Pulse Rate 83 82 Blood Pressure BP Systolic BP Diastolic Pulse Ox 94 08/01/23 08:15 08/01/23 08:55 08/01/23 08:55 Pulse Rate 70 Blood Pressure 113/69 BP Systolic 113 BP Diastolic 69 Pulse Ox 95 08/01/23 09:09 08/01/23 09:09 08/01/23 09:24 Pulse Rate 72 Blood Pressure 111/65 111/69 BP Systolic 111 111 BP Diastolic 65 69 Pulse Ox 08/01/23 09:24 08/01/23 09:39 08/01/23 09:39 Pulse Rate 68 72 Blood Pressure 112/71 BP Systolic 112 BP Diastolic 71 Pulse Ox 08/01/23 09:54 08/01/23 09:54 08/01/23 10:09 Pulse Rate 69 Blood Pressure 120/79 128/80 H BP Systolic 120 128 BP Diastolic 79 80 Pulse Ox 08/01/23 10:09 08/01/23 10:24 08/01/23 10:24 Pulse Rate 69 69 Blood Pressure 116/76 BP Systolic 116 BP Diastolic 76 Pulse Ox 08/01/23 10:39 08/01/23 10:39 Pulse Rate 70 Blood Pressure 121/79 H BP Systolic 121 BP Diastolic 79 Pulse Ox Weight Weight: 92.533 kg Body Mass Index (BMI) 29.2 Physical Exam Const alert and no apparent distress General Appearance: cooperative HEENT normocephalic Resp normal respiratory effort Cardio regular rate GI soft to palpation GI Narrative: gravid, nontender, appropriate for gestational age Extremity no calf tenderness General Extremity: edema Skin no wounds Rashes: No rashes noted Psych activity/motor behavior normal Labs Labs Labs: Blood Type B POSITIVE Antibody Screen NEGATIVE Hct 36.4 % (37-47) L Hgb 12.3 g/dL (12.0-15.0) Syphilis Total Ab Non-reactive Assessment & Plan (1) Spontaneous onset of labor: PLAN: Spontaneous onset of labor. Estimated weight is less than 4500 g clinically and pelvis clinically adequate for her to expect vaginal delivery. May have routine pain management measures in labor if desires. (2) 40 weeks gestation of : 08/01/23 1215 <Electronically signed by Mindy Delvalle MD> Cosigner Signature (if applicable): CC: Dr. Mindy Delvalle MD; No Primary Care Physician~ Signed [facility] Work Phone: 1(584) 912-306809-16-2023 Procedure [facility] 07-30-2023 Miscellaneous Notes* Quick Notes - Jasmin Núñez MD - 07/30/2023 4:35 PM EDT KJ - No VB/LOF. Reports irregular ctxs & good FM. A&P: Reviewed labor & FM precautions Discussed recommendation for 41wk induction - informed consent signed. Patient will let us know tomorrow about scheduling. Jasmin Núñez MD documented in this encounter[facility] Instructions* Patient Instructions* Jacqui Perez Ma - 07/30/2023 4:13 PM EDT SEQUENTIAL SCREENINGS The [facility] offers sequential screenings for women who are interested in screenings for chromosomal abnormalities and certain defects during a . The sequential screen combinesultrasound and blood tests to determine the risk of chromosomal abnormalities, including Down's Syndrome (Trisomy 21) and Trisomy 18, as well as open neural tube defects including spina bifida. Ultrasound examination is performed between 11 weeks and 13 weeks gestational age. Blood tests are drawn after the ultrasound and again later in the between 15 and 21 weeks gestational age. Please let your physician know if you are interested in this testing. It will require an appointment withour podiatric technician. This is not an ultrasound performed by a physician in our office during a routine visit. SIGNS AND SYMPTOMS OF LABOR 1. Contractions every 10 minutes or more often 2. Clear, pink, or brownish fluid (water) leaking from vagina 3. Feeling that baby is pushing down, pressure 4. Low, dull backache 5. Cramps that feel like a period 6. Cramps with or without diarrhea If you notice any of the above symptoms, contact our office at [phone] and ask to speak with anurse. After hours, you can call doctors registry at [phone] OR call [facility] at [phone] ask to have the doctor mental health practitioner paged. If you consider this an emergency, dial 9-1-1 or go to your nearest emergency department. NEED HELP? Are you dealing with a violent or abusive relationship? Are you a victim of rape or sexual assult? Call [facility] ([place]) 24 hour Crisis Hotline: 570.154.3304 or 183-227-0730. MANUAL Your Guide to a Healthy manual is now on-line. Visit [facility] [email or web address] to download your free copy documented in this encounterPrem[facility]09-11-2023 Miscellaneous Notes* Quick Notes - Elie Urias MD - 07/27/2023 9:07 AM EDT SW- Pt doing well. Some ctx's. No vb, lof. Good FM. Requests membrane sweep. Discussed r/b/a to membrane sweep and performed today. Labor precautions reviewed. RTO 1 wk if undelivered. Elie Urias DO documented in this encounterPrem[facility]09-07-2023 Instructions* Patient Instructions* Love Molina MA - 07/23/2023 4:05 PM EDT SEQUENTIAL SCREENINGS The [facility] offers sequential screenings for women who are interested in screenings for chromosomal abnormalities and certain defects during a . The sequential screen combinesultrasound and blood tests to determine the risk of chromosomal abnormalities, including Down's Syndrome (Trisomy 21) and Trisomy 18, as well as open neural tube defects including spina bifida. Ultrasound examination is performed between 11 weeks and 13 weeks gestational age. Blood tests are drawn after the ultrasound and again later in the between 15 and 21 weeks gestational age. Please let your physician know if you are interested in this testing. It will require an appointment withour podiatric technician. This is not an ultrasound performed by a physician in our office during a routine visit. SIGNS AND SYMPTOMS OF LABOR 1. Contractions every 10 minutes or more often 2. Clear, pink, or brownish fluid (water) leaking from vagina 3. Feeling that baby is pushing down, pressure 4. Low, dull backache 5. Cramps that feel like a period 6. Cramps with or without diarrhea If you notice any of the above symptoms, contact our office at [phone] and ask to speak with anurse. After hours, you can call doctors registry at [phone] OR call [facility] at [phone] ask to have the doctor mental health practitioner paged. If you consider this an emergency, dial 91-7 or go to your nearest emergency department. NEED HELP? Are you dealing with a violent or abusive relationship? Are you a victim of rape or sexual assult? Call [facility] ([place]) 24 hour Crisis Hotline: 695.834.6977 or 147-966-2903. MANUAL Your Guide to a Healthy manual is now on-line. Visit [email or web address] to download your free copy documented in this encounterPremier [facility]09-01-2023 Miscellaneous Notes* Quick Notes - Elie Urias MD - 07/17/2023 4:54 PM EDT SW- Pt doing well. No regular ctx, vb, lof. + FM and she is unsure if movement is decreased or not.Recommend going to L&D for NST and pt declines. She will perform kick counts at home and call if not meeting kick counts. Recommend daily kick counts. Labor precautions reviewed. Elie Urias DO documented in this encounterPremier [facility]09-01-2023 Instructions* Patient Instructions* Love Molina MA - 07/17/2023 4:21 PM EDT SEQUENTIAL SCREENINGS The [facility] offers sequential screenings for women who are interested in screenings for chromosomal abnormalities and certain defects during a . The sequential screen combinesultrasound and blood tests to determine the risk of chromosomal abnormalities, including Down's Syndrome (Trisomy 21) and Trisomy 18, as well as open neural tube defects including spina bifida. Ultrasound examination is performed between 11 weeks and 13 weeks gestational age. Blood tests are drawn after the ultrasound and again later in the between 15 and 21 weeks gestational age. Please let your physician know if you are interested in this testing. It will require an appointment withour podiatric technician. This is not an ultrasound performed by a physician in our office during a routine visit. SIGNS AND SYMPTOMS OF LABOR 1. Contractions every 10 minutes or more often 2. Clear, pink, or brownish fluid (water) leaking from vagina 3. Feeling that baby is pushing down, pressure 4. Low, dull backache 5. Cramps that feel like a period 6. Cramps with or without diarrhea If you notice any of the above symptoms, contact our office at [phone] and ask to speak with anurse. After hours, you can call doctors registry at [phone] OR call [facility] at [phone] ask to have the doctor mental health practitioner paged. If you consider this an emergency, dial 9-3-9 or go to your nearest emergency department. NEED HELP? Are you dealing with a violent or abusive relationship? Are you a victim of rape or sexual assult? Call [facility] ([facility] 24 hour Crisis Hotline: 129.511.8981 or 212-144-6825. MANUAL Your Guide to a Healthy manual is now on-line. Visit [facility] [email or web address] to download your free copy documented in this encounterPremier Health [facility] Center08-24-2023 Miscellaneous Notes* Quick Notes - Otilia Swenson MD - 07/09/2023 8:25 AM EDT DM- Pt doing well today. Denies Vaginal Bleeding, Leaking fluid, or contractions. Pt reports good movement. GBS today. Vertex confirmed on ultrasound. RTO one week. Kick counts and labor reviewed. Otilia Sewell MD documented in this encounterPremier Health [facility] Center08-24-2023 Instructions* Patient Instructions* Laura Vogt Mahany - 07/09/2023 8:10 AM EDT SEQUENTIAL SCREENINGS The [facility] offers sequential screenings for women who are interested in screenings for chromosomal abnormalities and certain defects during a . The sequential screen combinesultrasound and blood tests to determine the risk of chromosomal abnormalities, including Down's Syndrome (Trisomy 21) and Trisomy 18, as well as open neural tube defects including spina bifida. Ultrasound examination is performed between 11 weeks and 13 weeks gestational age. Blood tests are drawn after the ultrasound and again later in the between 15 and 21 weeks gestational age. Please let your physician know if you are interested in this testing. It will require an appointment withour podiatric technician. This is not an ultrasound performed by a physician in our office during a routine visit. SIGNS AND SYMPTOMS OF LABOR 1. Contractions every 10 minutes or more often 2. Clear, pink, or brownish fluid (water) leaking from vagina 3. Feeling that baby is pushing down, pressure 4. Low, dull backache 5. Cramps that feel like a period 6. Cramps with or without diarrhea If you notice any of the above symptoms, contact our office at [phone] and ask to speak with anurse. After hours, you can call doctors registry at [phone] OR call [facility] at [phone] ask to have the doctor mental health practitioner paged. If you consider this an emergency, dial or go to your nearest emergency department. NEED HELP? Are you dealing with a violent or abusive relationship? Are you a victim of rape or sexual assult? Call [facility] ([facility] 24 hour Crisis Hotline: 897.483.9249 or 104-351-1853. MANUAL Your Guide to a Healthy manual is now on-line. Visit [facility] [email or web address] to download your free copy documented in this encounterPremier Health [facility] Center08-14-2023 Miscellaneous Notes* Telephone Encounter - Mayda Hall LPN - 06/29/2023 11:51 AM EDT [employer] message left for pt has been viewed with no further questions. Maydamadi Hall LPN documented in this encounterPremier Health [facility] Center08-10-2023 Miscellaneous Notes* Quick Notes - Elie Urias MD - 06/25/2023 4:25 PM EDT SW- Accompanied by . No pain, vb, lof. Good FM. She reports she had a pruritis, raised rash over abdomen and LE's. Her has same rash over LE's. They went to urgent care and were told it was possibly scabies? has derm appointment tomorrow. Instructed her to call office tomorrow with an update after his appointment. Her rash appears healed - she has a few raised, red bumps over upper thighs. No rash elsewhere. Only new exposure is new laundry detergent. No recent travel or new outdoor exposures. No pets in home. Weekly visits. Elie Urias DO documented in this encounterPremier Health [facility] Center08-10-2023 Instructions* Patient Instructions* Venecia Vogt Ma - 06/25/2023 4:06 PM EDT SEQUENTIAL SCREENINGS The [facility] offers sequential screenings for women who are interested in screenings for chromosomal abnormalities and certain defects during a . The sequential screen combinesultrasound and blood tests to determine the risk of chromosomal abnormalities, including Down's Syndrome (Trisomy 21) and Trisomy 18, as well as open neural tube defects including spina bifida. Ultrasound examination is performed between 11 weeks and 13 weeks gestational age. Blood tests are drawn after the ultrasound and again later in the between 15 and 21 weeks gestational age. Please let your physician know if you are interested in this testing. It will require an appointment withour podiatric technician. This is not an ultrasound performed by a physician in our office during a routine visit. SIGNS AND SYMPTOMS OF LABOR 1. Contractions every 10 minutes or more often 2. Clear, pink, or brownish fluid (water) leaking from vagina 3. Feeling that baby is pushing down, pressure 4. Low, dull backache 5. Cramps that feel like a period 6. Cramps with or without diarrhea If you notice any of the above symptoms, contact our office at [phone] and ask to speak with anurse. After hours, you can call doctors registry at [phone] OR call [facility] at [phone] ask to have the doctor mental health practitioner paged. If you consider this an emergency, dial 9-1-6 or go to your nearest emergency department. NEED HELP? Are you dealing with a violent or abusive relationship? Are you a victim of rape or sexual assult? Call [facility] ([place]) 24 hour Crisis Hotline: 300.673.4842 or 862-056-3629. MANUAL Your Guide to a Healthy manual is now on-line. Visit [email or web address] to download your free copy documented in this encounterPremier Health [facility] Center07-06-2023 Miscellaneous Notes* Quick Notes - Jasmin Núñez MD - 05/21/2023 9:30 AM EDT KJ - No VB/LOF/ctxs. Reports good FM. A&P: 28wk labs today Declines LARC Tdap next visit Reviewed PTL & FM precautions Jasmin Núñez MD documented in this encounterPremier Health [facility] Center07-06-2023 Instructions* Patient Instructions* Love Molina MA - 05/21/2023 8:21 AM EDT SEQUENTIAL SCREENINGS The [facility] offers sequential screenings for women who are interested in screenings for chromosomal abnormalities and certain defects during a . The sequential screen combinesultrasound and blood tests to determine the risk of chromosomal abnormalities, including Down's Syndrome (Trisomy 21) and Trisomy 18, as well as open neural tube defects including spina bifida. Ultrasound examination is performed between 11 weeks and 13 weeks gestational age. Blood tests are drawn after the ultrasound and again later in the between 15 and 21 weeks gestational age. Please let your physician know if you are interested in this testing. It will require an appointment withour podiatric technician. This is not an ultrasound performed by a physician in our office during a routine visit. SIGNS AND SYMPTOMS OF LABOR 1. Contractions every 10 minutes or more often 2. Clear, pink, or brownish fluid (water) leaking from vagina 3. Feeling that baby is pushing down, pressure 4. Low, dull backache 5. Cramps that feel like a period 6. Cramps with or without diarrhea If you notice any of the above symptoms, contact our office at [phone] and ask to speak with anurse. After hours, you can call doctors registry at [phone] OR call [facility] at [phone] ask to have the doctor mental health practitioner paged. If you consider this an emergency, dial 0-7-6 or go to your nearest emergency department. NEED HELP? Are you dealing with a violent or abusive relationship? Are you a victim of rape or sexual assult? Call [facility] [place] ([facility] 24 hour Crisis Hotline: 608.232.9729 or 051-270-9107. MANUAL Your Guide to a Healthy manual is now on-line. Visit [email or web address] to download your free copy documented in this encounterPremier Health Atrium Medical Center06-01-2023 Miscellaneous Notes* Quick Notes - Jennifer Lutz APRN.CNM - 04/16/2023 8:13 AM EDT Segun Musa is a 32 year old female who presents at 24w6d Estimated Date of Delivery: 07/31/23 fora routine visit. Good movement. Denies headache, visual changes, chest pain, shortness of breath, vaginal bleeding, leakage of fluid, or dysuria. Feeling well, no complaints. Size equal to dates. PTL precautions reviewed. RTC in 4 weeks for HIRAM with GCT. Jennifer Lutz APRN.CNM documented in this encounterPremier Health Atrium Medical Center06-01-2023 Instructions* Patient Instructions* Jae Lerma Straight Edger - 04/16/2023 8:09 AM EDT SEQUENTIAL SCREENINGS The [facility] offers sequential screenings for women who are interested in screenings for chromosomal abnormalities and certain defects during a . The sequential screen combinesultrasound and blood tests to determine the risk of chromosomal abnormalities, including Down's Syndrome (Trisomy 21) and Trisomy 18, as well as open neural tube defects including spina bifida. Ultrasound examination is performed between 11 weeks and 13 weeks gestational age. Blood tests are drawn after the ultrasound and again later in the between 15 and 21 weeks gestational age. Please let your physician know if you are interested in this testing. It will require an appointment withour podiatric technician. This is not an ultrasound performed by a physician in our office during a routine visit. SIGNS AND SYMPTOMS OF LABOR 1. Contractions every 10 minutes or more often 2. Clear, pink, or brownish fluid (water) leaking from vagina 3. Feeling that baby is pushing down, pressure 4. Low, dull backache 5. Cramps that feel like a period 6. Cramps with or without diarrhea If you notice any of the above symptoms, contact our office at [phone] and ask to speak with anurse. After hours, you can call doctors registry at [phone] OR call [facility] at [phone] ask to have the doctor mental health practitioner paged. If you consider this an emergency, dial 9--1 or go to your nearest emergency department. NEED HELP? Are you dealing with a violent or abusive relationship? Are you a victim of rape or sexual assult? Call [facility] ([place]) 24 hour Crisis Hotline: 559.737.7320 or 708-671-8673. MANUAL Your Guide to a Healthy manual is now on-line. Visit [email or web address] to download your free copy documented in this encounterPremier Health Atrium Medical Center04-03-2023 Miscellaneous Notes* Quick Notes - Mindy Delvalle MD - 02/16/2023 8:40 AM EDT RR- No VB/LOF. Took medication for BV and asymptomatic at this point. US for anatomy scheduled. Taking PNV. Declines aneuploidy screening. Mindy Delvalle MD documented in this encounterPremier Health Atrium Medical Center04-03-2023 Instructions* Patient Instructions* Tiffanie Colbert Ma - 02/16/2023 8:19 AM EDT SEQUENTIAL SCREENINGS The [facility] offers sequential screenings for women who are interested in screenings for chromosomal abnormalities and certain defects during a . The sequential screen combinesultrasound and blood tests to determine the risk of chromosomal abnormalities, including Down's Syndrome (Trisomy 21) and Trisomy 18, as well as open neural tube defects including spina bifida. Ultrasound examination is performed between 11 weeks and 13 weeks gestational age. Blood tests are drawn after the ultrasound and again later in the between 15 and 21 weeks gestational age. Please let your physician know if you are interested in this testing. It will require an appointment withour podiatric technician. This is not an ultrasound performed by a physician in our office during a routine visit. SIGNS AND SYMPTOMS OF LABOR 1. Contractions every 10 minutes or more often 2. Clear, pink, or brownish fluid (water) leaking from vagina 3. Feeling that baby is pushing down, pressure 4. Low, dull backache 5. Cramps that feel like a period 6. Cramps with or without diarrhea If you notice any of the above symptoms, contact our office at [phone] and ask to speak with anurse. After hours, you can call doctors registry at [phone] OR call [facility] at [phone] ask to have the doctor mental health practitioner paged. If you consider this an emergency, dial 9--0 or go to your nearest emergency department. NEED HELP? Are you dealing with a violent or abusive relationship? Are you a victim of rape or sexual assult? Call [facility] ([place]) 24 hour Crisis Hotline: 824.703.2096 or 274-728-9365. MANUAL Your Guide to a Healthy manual is now on-line. Visit [email or web address] to download your free copy documented in this encounterPremier Health Atrium Medical Center03-13-2023 Miscellaneous Notes* Telephone Encounter - Shelley Robles LPN - 01/26/2023 3:20 PM EDT Ob patient is 13w3d and called office asking if there was another medication that can be prescribedfor bacterial vaginosis? Patient is also and read that flagyl can pass into breast milk and change how it tastes. Patient concerned that baby may not want to breastfeed while she is on the medication. Please advise. Patient asking for Dr. Núñez to review message when in office next * Telephone Encounter - Jennifer Lutz APRN.CNM - 01/26/2023 3:02 PM EDT Flagyl Rx sent. Please notify patient and discuss what bacterial vaginosis is. No alcohol or intercourse during treatment and up to 24 hours after last dose. Jennifer Lutz APRN.CNM * Telephone Encounter - Kalie Cheney RN - 01/26/2023 8:59 AM EDT BV+ Please review in KJ's absence. RX for Flagyl is pending. documented in this encounterPremier Health Atrium Medical Center03-10-2023 History of Present illness Narrative* Jasmin Núñez MD - 01/23/2023 2:13 PM EST INITIAL OB ASSESSMENT Obstetric History T3 L3 SAB0 IAB0 Ectopic0 Multiple0 Live Births3 Comment: menarche-14 Name of Baby 1: Samuel Date: 10/19/18 GA: 41w0d Delivery: Vaginal, Spontaneous Apgar1: Not recorded Apgar5: Not recorded Living: Living Name of Baby 2: Dorcas Date: 04/20/20 GA: 39w0d Delivery: Vaginal, Spontaneous Apgar1: Not recorded Apgar5: Not recorded Living: Living Name of Baby 3: Theresa Date: 01/16/22 GA: 39w0d Delivery: Vaginal, Spontaneous Apgar1: Not recorded Apgar5: Not recorded Living: Living Name of Baby 4: Not recorded Date: Not recorded GA: Not recorded Delivery: Not recorded Apgar1: Not recorded Apgar5: Not recorded 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 HPI: Segun Musa is a 32 year old female here to establish Obstetrical Care. Patient's last menstrual period was 10/24/2022 (exact date). from OB Dating Form. Complaints: None was planned. OB History T3 L3 SAB0 IAB0 Ectopic0 Multiple0 Live Births3 Comment: menarche-14 Prior : never History of 4th degree laceration: No Patient's Risk Screening for delivery: History of abnormal pap: No Prior treatment for cervical dysplasia: none. History of STDs: None Tobacco use: No Caffeine use: Yes - minimal Drug use: No Alcohol use: No Multivitamin with Folic acid: Yes Occupation: none Pentecostal or heritage: No Would refuse blood transfusion if medically necessary: No BMI 26.75 kg/(m^2) Patient BMI over 30? 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 LYSINE ORAL Take by mouth. docusate sodium (COLACE) 100 mg capsule Take 1 capsule by mouth twice daily as needed. No current facility-administered medications on file prior to visit. Review of Systems: GENERAL: Negative for: Fever or Chills HEENT: Negative for: Headache, Impaired Vision, Ringing in Ears, Nosebleeds NECK: Negative for: Swelling, Pain, Stiffness RESPIRATORY: Negative for: Cough, Shortness of breath, Wheezing GASTROINTESTINAL: Negative for: Heartburn, Constipation, Diarrhea, Blood in stool, Vomiting MUSCULOSKELETAL: Negative for: Muscle or joint pain, stiffness, Joint swelling NEUROLOGIC/PSYCHIATRIC: Negative for: Weakness, Paralysis, Numbness, Tingling, Tremor, Anxiety, Depression, Memory loss SKIN: Negative for: Rash, Itching GENITOURINARY: Negative for: hematuria or dysuria; positive for vaginal itching & discharge PHYSICAL EXAM: BP 100/56 Ht 5' 10 (1.78m) Wt 186 lb 6.4 oz (84.6kg) LMP 10/24/2022 BMI 26.75 kg/(m^2). GENERAL: pleasant female in no apparent distress DERMATOLOGY: Normal, without lesions, non-icteric, and non-hirsute NECK: Supple, full range of motion, no adenopathy, and thyroid normal CHEST: Normal inspiratory effort BREAST: soft, non-tender, symmetric, no dominant mass, normal nipple-areolar complex, no lymphadenopathy, and no nipple discharge ABDOMEN: soft, non-tender, and no masses NEURO: alert and oriented x3,exam grossly non-focal PELVIS: External genitalia normal without lesions. Perineal body intact. No vaginal or cervical lesions. Cervix closed. Uterus 13 week size. No adnexal masses or tenderness. Clinical Pelvimetry: Pelvimetry clinically assessed as adequate Limited OB ultrasound exam: single intrauterine and positive cardiac activity OB Risk Screening: Completed, no positive findings documented. ASSESSMENT: 32 year old at 13 wks gestational age PLAN: 1) Patient oriented to practice. Discussed nutrition, folic acid supplementation, dietary guidelines, exercise, smoking, alcohol, caffeine, and drug use. Discussed routine OB labs including STD/HIV. Discussed aneuploidy screening options including serum screening and nuchal translucency. Patient declines all aneuploidy screening. CF carrier screening discussed and declined. 2) See problem list 3) Anatomy US ordered 4) Vaginitis swab Follow up in 4 weeks or sooner prn. Jasmin Núñez MD documented in this encounterPremier Health Atrium Medical Center03-10-2023 Instructions* Patient Instructions* Jacqui Perez Ma - 01/23/2023 2:13 PM EST Please select the following link to access the [facility] Your Guide to a Healthy . [email or web address] documented in this encounterPremier Health Atrium Medical Center03-09-2023 History of Present illness Narrative* Lynn Stanley RN - 01/22/2023 7:57 AM EST # 1 - Date: 10/19/18, Sex: Male, Weight: 6 lb 12 oz (3.062 kg), GA: 41w0d, Delivery: Vaginal, Spontaneous, Apgar1: None, Apgar5: None, Living: Living, Comments: None # 2 - Date: 04/20/20, Sex: Female, Weight: 7 lb 7 oz (3.374 kg), GA: 39w0d, Delivery: Vaginal, Spontaneous, Apgar1: None, Apgar5: None, Living: Living, Comments: None # 3 - Date: 01/16/22, Sex: Female, Weight: 6 lb 12 oz (3.062 kg), GA: 39w0d, Delivery: Vaginal, Spontaneous, Apgar1: None, Apgar5: None, Living: Living, Comments: None # 4 - Date: None, Sex: None, Weight: None, GA: None, Delivery: None, Apgar1: None, Apgar5: None, Living: None, Comments: None documented in this encounterPremier Health Atrium Medical Center03-09-2023 Miscellaneous Notes* Quick Notes - Lynn Stanley RN - 01/22/2023 7:57 AM EST DISTANCE HEALTH VISIT This Team Access Model visit is a phone encounter. It required patient-provider interaction for themedical decision making as documented below. Segun Musa is a 32 year old female seen for PNOB. Father of the baby has an aunt and 2 cousins with Loeys- Jimmy syndrome. Patient states that he has never had genetic testing. She does states shejaylyns had 1 visit at [facility] in [place] by Dr. Hayden. Patient is advised to have her medical records sent here or sign a release at her new OB appointment. Our fax number was provided. Patient declines aneuploidy screening and genetic carrier screening testing. documented in this encounterPremier Health Atrium Medical Center02-28-2023 Miscellaneous Notes* Telephone Encounter - Kalie Cheney RN - 01/13/2023 12:47 PM EST Scheduled * Telephone Encounter - Lynn Stanley RN - 01/13/2023 12:18 PM EST Left message for patient to return phone call. Patient has an appointment with Dr Núñez for NOB appointment. Please schedule PNOB appointment. Please schedule for 60 minutes. New to [facility] documented in this encounterPremier Health Atrium Medical CenterDischarge summary Author Mindy Delvalle [facility] August 02, 2023 9:37am Note Date/Time August 02, 2023 9:37am [facility] Medical Records Department [address] [place] [address] Discharge Summary 08/02/23 0936 MR#: [id number] Acct: [id number] Name: SEGUN MUSA Rep #:[id number] : 1990 33 From: Mindy Delvalle MD PCP: Care Physician,No Primary Status :ADM IN [facility] Prov[facility] Date of Admission: 08/01/23 Primary Care Physician: No Primary Care Phys Reason For Visit: VAGINAL DELIVERY Diagnosis Discharge Diagnosis (1) (spontaneous vaginal delivery): Status: Acute Code(s): O80 - Encounter for full-term uncomplicated delivery Plan: day #1 status post vaginal delivery. is breast-feeding and doing well. Patient is doing well and desires discharge home. Medications at Discharge Home Medications docusate sodium 100 mg capsule (DOK) 100 mg PO BID PRN PRN constipation 20 days #30 CAPSULES 08/02/23 ibuprofen 600 mg tablet 600 mg PO Q6H PRN Pain 20 days #60 TABLETS 08/02/23 Hospital Course Operations None Summary of Care Provided Minutes Spent on Discharge: 13 Hospital Course: Patient admitted for spontaneous labor. She had an uneventful vaginal delivery on 08/01/2023. By 12 08/02/2023 she desired discharge home with routine instructions and follow-up. Weight / BMI Weight Weight: 92.533 kg Body Mass Index (BMI) 29.2 ABG / Lab / Microbiology Data 08/01/23 08:10 D/C Instructions May resume sexual activity in: 6 weeks Please Follow Up With: Mindy Delvalle MD When: Follow-up in our office in 1-2 in 6 weeks or as needed. Call [phone] send a Zazuba message. Meaningful Use Info Meaningful Use Diagnoses (Choose all that apply): None applicable Discharge Plan Admission Admit Date/Time: 08/01/23 07:33 Primary Reason for Your Visit: Vaginal delierjazzy Attending Provider: Mindy Delvalle Primary Care Provider: Care Physician,Marni Primary Discharge Orders/Prescriptions Prescriptions: New docusate sodium [DOK] 100 mg capsule 100 mg PO BID PRN PRN (Reason: constipation) 20 Days Qty: 30 1RF ibuprofen [ibuprofen] 600 mg tablet 600 mg PO Q6H PRN (Reason: Pain) 20 Days Qty: 60 1RF Referrals / Follow Up: Care Physician,No Primary [Primary Care Provider] - Disposition Disposition (needs filled in before D/C Order can be placed): Home, Self Care 08/02/23936 <Electronically signed by Mindy Delvalle MD> Cosigner Signature (if applicable): CC: Dr. Mindy Delvalle MD; No Primary Care Physician~ Signed [facility] Work Phone: Evaluation + Plan note No data available for this section [facility] Evaluation note* Diagnosis Encounter for supervision of normal in multigravida in first trimester- Primary Family history of genetic disease Family history of other condition with care elsewhere, antepartum documented in this encounter [facility]* Diagnosis BV (bacterial vaginosis)- Primary Vaginitis and vulvovaginitis, unspecified documented in this encounter [facility]* Diagnosis Encounter for screening for malignant neoplasm of cervix- Primary Screening for malignant neoplasm of the cervix Special screening examination for human papillomavirus (HPV) with care elsewhere, antepartum Vaginal itching Pruritus of genital organs documented in this encounter [facility]* Diagnosis Encounter for supervision of other normal in second trimester- Primary 16 weeks gestation of state, incidental documented in this encounter [facility]* Diagnosis Encounter for anatomic survey- Primary with care elsewhere, antepartum 20 weeks gestation of state, incidental [facility] Diagnosis 24 weeks gestation of - Primary state, incidental [facility]* Diagnosis 29 weeks gestation of - Primary state, incidental Encounter for supervision of other normal in second trimester documented in this encounter [facility]* Diagnosis 34 weeks gestation of - Primary state, incidental documented in this encounter [facility]* Diagnosis Encounter for supervision of other normal in third trimester- Primary 36 weeks gestation of state, incidental [facility]* Diagnosis 38 weeks gestation of - Primary state, incidental Encounter for supervision of other normal in third trimester documented in this encounter [facility]* Diagnosis 39 weeks gestation of - Primary state, incidental with care elsewhere, antepartum documented in this encounter [facility]* Diagnosis Onset Date Resolution Status 40 weeks gestation of acute Spontaneous onset of labor a cute (spontaneous vaginal delivery) [facility] Work Phone: Evaluation note* Diagnosis Encounter for supervision of other normal in third trimester- Primary 41 weeks gestation of Post term , unspecified episode of care [facility]* Diagnosis Encounter for gynecological examination (general) (routine) without abnormal findings- Primary Screening cholesterol level Screening for lipoid disorders Encounter for screening for diabetes mellitus Screening for diabetes mellitus Screening examination for STI Screening for thyroid disorder Malaise and fatigue Other malaise and fatigue documented in this encounter [facility]* Diagnosis with uncertain dates, antepartum (HCC)- Primary state, incidental Encounter for supervision of other normal , first trimester ([facility]) documented in this encounter [facility]* Diagnosis Encounter for supervision of other normal , first trimester ([facility])- Primary 12 weeks gestation of ([facility]) state, incidental documented in this encounter [facility]* Diagnosis 16 weeks gestation of ([facility])- Primary state, incidental Encounter for supervision of other normal in second trimester ([facility]) Breast pain, left Mastodynia documented in this encounter [facility]* Diagnosis screening for malformation using ultrasonics ([facility])- Primary Encounter for routine screening for malformation using ultrasonics 21 weeks gestation of ([facility]) state, incidental documented in this encounter [facility] note* Diagnosis 16 weeks gestation of (HCC) state, incidental Breast pain, left Mastodynia documented in this encounter [facility]* Diagnosis Encounter for supervision of other normal in second trimester ([facility])- Primary 23 weeks gestation of ([facility]) state, incidental Screening for diabetes mellitus documented in this encounter [facility]* Diagnosis screening for malformation using ultrasonics ([facility])- Primary Encounter for routine screening for malformation using ultrasonics 23 weeks gestation of ([facility]) state, incidental [facility] No data available for this section [facility] Progress note Author Mindy Delvalle [facility] August 02, 2023 9:32am Note Date/Time August 02, 2023 9:33am [facility] Medical Records Department [address] [place] [address] Progress Note 08/02/23929 MR#: [id number] Acct: [id number] Name: SEGUN MUSA Rep #:[id number] : 1990 33 From: Mindy Delvalle MD PCP: Care Physician,No Primary Status :ADM IN [facility] Progress Note Pain well controlled with average lochia. Assessment & Plan Assessment/Plan (1) (spontaneous vaginal delivery): PLAN: day #1 status post vaginal delivery. is breast- feedingand doing well. Patient is doing well and desires discharge home. 08/02/23 0932 <Electronically signed by Mindy Delvalle MD> Mindy Delvalle MD Cosigner Signature (if applicable): CC: ~ Signed [facility] Work Phone: Progress note No data available for this section [facility] Reason for referral (narrative)* Diagnostic Procedure Only (Routine) - Authorized Specialty Diagnoses / Procedures Referred By Contac t Referred To Contact [facility] Diagnoses with care elsewhere, antepartum Procedures OBSTETRIC ULTRASOUND WHI US PREG UTERUS AFTER 1ST TRIMEST GESTATION Jasmin Núñez MD [address] [place] [address] [facility] [place] [id number] Referral ID Status Reason Start Date Expiration Date Visits Requested Visits Authorized [id number] Authorized Auto-Generat ed Referral 01/23/2023 01/23/2024 1 1 [facility] for referral (narrative)* Diagnostic Procedure Only (Routine) - Pending Review Specialty Diagnoses / Procedures Referred By Contac t Referred To Contact [facility] Diagnoses Encounter for supervision of other normal in third trimester 41 weeks gestation of Procedures OBSTETRIC ULTRASOUND WHI US PREG UTERUS AFTER 1ST TRIMEST GESTATION Mindy Delvalle MD [address] [place] [address] [facility] [place] [address] Referral ID Status Reason Start Date Expiration Date Visits Requested Visits Authorized [id number] Pending Review Auto-Generat ed Referral 07/31/2023 07/30/2024 1 1 [facility] N[facility]* Diagnostic Procedure Only (Routine) - Closed Specialty Diagnoses / Procedures Referred By Corry t Referred To Contact [facility] Diagnoses 16 weeks gestation of (HCC) Breast pain, left Procedures US BREAST LTD LEFT US BREAST UNI REAL TIME WITH IMAGE LIMITED Kalie Ellington MD [address] [place] [address] Phone: tel: fax: [facility] [address] [place] [address] Referral ID Status Reason Start Date Expiration Date V isits Requested Visits Authorized [id number] Closed Auto-Generate d Referral 06/02/2025 07/02/2026 1 1 [facility] Health Concerns Problem Noted Date OB Reminders 01/23/2023 Problem Noted Date OB Reminders 01/23/2023 Problem Noted Date OB Reminders 01/23/2023 Problem Noted Date OB Reminders 01/23/2023 Problem Noted Date OB Reminders 01/23/2023 Problem Noted Date Diagnosed Date OB Reminders 01/23/2023 Problem Noted Date Diagnosed Date OB Reminders 01/23/2023 Problem Noted Date Diagnosed Date OB Reminders 01/23/2023 Problem Noted Date Diagnosed Date OB Reminders 01/23/2023 Problem Noted Date Diagnosed Date OB Reminders 01/23/2023 Problem Noted Date Diagnosed Date OB Reminders 01/23/2023 Problem Noted Date Diagnosed Date OB Reminders 01/23/2023 Chief Complaint and Reason for Visit Chief Complaint VAGINAL DELIVERY Reason for Visit 40 weeks gestation o f Spontaneous onset of labor (spontaneous vaginal delivery) Advance Directives No Advanced Directives Records Found Advance Directive Response Recorded Date/ Time Living Will No August 01, 2023 7:55am Power of Real Estate Photographer No July 7:55am Summary Purpose Family History No Family History Records Found Additional Source Comments Source Comments (unrecognize d section and content) In the event this informatio n is protected by the Federal Confidentiality of Alcohol and Drug Abuse Patient Records regulations: The Federal rules restrict any use of the information to criminally investigate or prosecute any alcohol or drug abuse patient.[facility] CenterIn the event this information is protected by the Federal Confidentiality of Alcohol and Drug Abuse Patient Records regulations: The Federal rules restrict any use of the information to criminally investigate or prosecute any alcohol or drug abuse patient.[facility] CenterIn the event this information is protected by the Federal Confidentiality of Alcohol and Drug Abuse Patient Records regulations: The Federal rules restrict any use of the information to criminally investigate or prosecute any alcohol or drug abuse patient.[facility] CenterIn the event this information is protected by the Federal Confidentiality of Alcohol and Drug Abuse Patient Records regulations: The Federal rules restrict any use of the information to criminally investigate or prosecute any alcohol or drug abuse patient.[facility] CenterIn the event this information is protected by the Federal Confidentiality of Alcohol and Drug Abuse Patient Records regulations: The Federal rules restrict any use of the information to criminally investigate or prosecute any alcohol or drug abuse patient.[facility] CenterIn the event this information is protected by the Federal Confidentiality of Alcohol and Drug Abuse Patient Records regulations: The Federal rules restrict any use of the information to criminally investigate or prosecute any alcohol or drug abuse patient.[facility] CenterIn the event this information is protected by the Federal Confidentiality of Alcohol and Drug Abuse Patient Records regulations: The Federal rules restrict any use of the information to criminally investigate or prosecute any alcohol or drug abuse patient.[facility] CenterIn the event this information is protected by the Federal Confidentiality of Alcohol and Drug Abuse Patient Records regulations: The Federal rules restrict any use of the information to criminally investigate or prosecute any alcohol or drug abuse patient.[facility] CenterIn the event this information is protected by the Federal Confidentiality of Alcohol and Drug Abuse Patient Records regulations: The Federal rules restrict any use of the information to criminally investigate or prosecute any alcohol or drug abuse patient.[facility] CenterIn the event this information is protected by the Federal Confidentiality of Alcohol and Drug Abuse Patient Records regulations: The Federal rules restrict any use of the information to criminally investigate or prosecute any alcohol or drug abuse patient.[facility] CenterIn the event this information is protected by the Federal Confidentiality of Alcohol and Drug Abuse Patient Records regulations: The Federal rules restrict any use of the information to criminally investigate or prosecute any alcohol or drug abuse patient.[facility] CenterIn the event this information is protected by the Federal Confidentiality of Alcohol and Drug Abuse Patient Records regulations: The Federal rules restrict any use of the information to criminally investigate or prosecute any alcohol or drug abuse patient.[facility] CenterIn the event this information is protected by the Federal Confidentiality of Alcohol and Drug Abuse Patient Records regulations: The Federal rules restrict any use of the information to criminally investigate or prosecute any alcohol or drug abuse patient.[facility] CenterIn the event this information is protected by the Federal Confidentiality of Alcohol and Drug Abuse Patient Records regulations: The Federal rules restrict any use of the information to criminally investigate or prosecute any alcohol or drug abuse patient.[facility] CenterIn the event this information is protected by the Federal Confidentiality of Alcohol and Drug Abuse Patient Records regulations: The Federal rules restrict any use of the information to criminally investigate or prosecute any alcohol or drug abuse patient.[facility] CenterIn the event this information is protected by the Federal Confidentiality of Alcohol and Drug Abuse Patient Records regulations: The Federal rules restrict any use of the information to criminally investigate or prosecute any alcohol or drug abuse patient.[facility] CenterIn the event this information is protected by the Federal Confidentiality of Alcohol and Drug Abuse Patient Records regulations: The Federal rules restrict any use of the information to criminally investigate or prosecute any alcohol or drug abuse patient.[facility] CenterIn the event this information is protected by the Federal Confidentiality of Alcohol and Drug Abuse Patient Records regulations: The Federal rules restrict any use of the information to criminally investigate or prosecute any alcohol or drug abuse patient.[facility] CenterIn the event this information is protected by the Federal Confidentiality of Alcohol and Drug Abuse Patient Records regulations: The Federal rules restrict any use of the information to criminally investigate or prosecute any alcohol or drug abuse patient.[facility] CenterIn the event this information is protected by the Federal Confidentiality of Alcohol and Drug Abuse Patient Records regulations: The Federal rules restrict any use of the information to criminally investigate or prosecute any alcohol or drug abuse patient.[facility] CenterIn the event this information is protected by the Federal Confidentiality of Alcohol and Drug Abuse Patient Records regulations: The Federal rules restrict any use of the information to criminally investigate or prosecute any alcohol or drug abuse patient.[facility] CenterIn the event this information is protected by the Federal Confidentiality of Alcohol and Drug Abuse Patient Records regulations: The Federal rules restrict any use of the information to criminally investigate or prosecute any alcohol or drug abuse patient.[facility] CenterIn the event this information is protected by the Federal Confidentiality of Alcohol and Drug Abuse Patient Records regulations: The Federal rules restrict any use of the information to criminally investigate or prosecute any alcohol or drug abuse patient.[facility] CenterIn the event this information is protected by the Federal Confidentiality of Alcohol and Drug Abuse Patient Records regulations: The Federal rules restrict any use of the information to criminally investigate or prosecute any alcohol or drug abuse patient.[facility] CenterIn the event this information is protected by the Federal Confidentiality of Alcohol and Drug Abuse Patient Records regulations: The Federal rules restrict any use of the information to criminally investigate or prosecute any alcohol or drug abuse patient.[facility] CenterIn the event this information is protected by the Federal Confidentiality of Alcohol and Drug Abuse Patient Records regulations: The Federal rules restrict any use of the information to criminally investigate or prosecute any alcohol or drug abuse patient.[facility] Reason for Visit (unrecogniz ed section and content) Reason Comments Future Appointment Reason Comments Care Reason Onset Date Comments Care 02/16/2023 Reason Comments US Specialty Diagnoses / Procedures Referred By Corry t Referred To Contact [facility] Diagnoses with care elsewhere, antepartum Procedures OBSTETRIC ULTRASOUND WHI US PREG UTERUS AFTER 1ST TRIMEST GESTATION Jasmin Núñez MD [address] [place] [address] [facility] [address] [place] [address] Referral ID Status Reason Start Date Expiration Date V isits Requested Visits Authorized [id number] Closed Auto-Generate d Referral 01/23/2023 01/23/2024 1 1 Reason Onset Date Comments Care 04/16/2023 Reason Onset Date Comments Care 05/21/2023 Reason Onset Date Comments Care 06/25/2023 Reason Onset Date Comments Care 07/09/2023 Reason Onset Date Comments Care 07/17/2023 Reason Onset Date Comments Care 07/23/2023 Reason Onset Date Comments Care 07/30/2023 Reason Comments Ob Delivery Note Reason Comments Care Reason Comments Initial OB Visit Reason Onset Date Comments Care 05/01/2025 Reason Onset Date Comments Care 06/02/2025 Reason Comments US Specialty Diagnoses / Procedures Referred By Contac t Referred To Contact [facility] Diagnoses with uncertain dates, antepartum (HCC) Procedures OBSTETRIC ULTRASOUND WHI US PREG UTERUS AFTER 1ST TRIMEST GESTATION Sherley Aadmson APRN.[facility] [address] [place] [address] Phone: tel: fax: [address] [address] Referral ID Status Reason Start Date Expiration Date V isits Requested Visits Authorized [id number] Closed Auto-Generate d Referral 03/31/2025 03/31/2026 1 1 Reason Comments Appointment Reason Onset Date Comments Care 07/21/2025 Specialty Diagnoses / Procedures Referred By Contac t Referred To Contact [facility] Diagnoses screening for malformation using ultrasonics (HCC) Procedures OBSTETRIC ULTRASOUND WHI US PREG UTERUS AFTER 1ST [place] [address] [address] Phone: tel: fax: [address] [address] Referral ID Status Reason Start Date Expiration Date V isits Requested Visits Authorized [id number] Closed Auto-Generate d Referral 07/04/2025 07/04/2026 1 1 Care Teams (unrecognized sec tion and content) Team Status: Active Member Role Status Dates No Primary Care Physician Primary Care Provider Active Team Status: Inactive Member Role Status Dates No Primary Care Physician Primary Care Provider Active Dr. Mindy Delvalle MD Admit Provider, Attending Provider, Referring Provider Active INFORMATION SOURCE (unrecogn ized section and content) DATE CREATED AUTHOR 12/07/2024 [facility] DATE CREATED AUTHOR AUTHOR'S ORGANIZ ATION 08/22/2025 [facility] DATE CREATED AUTHOR AUTHOR'S ORGANIZ ATION 09/24/2025 [facility] FOR RECORDS PERTAINING TO PATIENTS WHO ARE OR HAVE BEEN ENROLLED IN A CHEMICAL DEPENDENCY/SUBSTANCEABUSE PROGRAM, SOME INFORMATION MAY BE OMITTED. This clinical summary was aggregated from multiple sources. Caution should be exercised in using it in the provision of clinical care. This summary normalizes information from multiple sources, and as a consequence, information in this document may materially change the coding, format and clinical context of patient data. In addition, data may be omitted in some cases. CLINICAL DECISIONS SHOULD BE BASED ON THE PRIMARY CLINICAL RECORDS. [employer] provides no warranty or guarantee of the accuracy or completeness of information in this document.
--- OUTSIDE RECORDS SUMMARY | 2025-11-14 01:48 | XMS RPT_ITS | CCD ---
Author Organization [facility] Care Team Providers Care Director Medical Safety Name Role Phone Unavailable Primary Care Provider [...] Comment on above: Take 1 capsule by [facility] twice daily as needed. ibuprofen 600 mg [...] width (RBC) [Ratio] 13.2 % Normal 11.5-15.0 [facility] Comment on above: Order Comment: Raciel diaz Type: BLOOD SPECIMEN Ordering Facility: [facility] Address: [address] [place] [address] Performed By: #### 5 8410-2 #### [facility] CLIA [id number] [address] [place] [address] [place] Hematocrit (Bld) [Volume fraction] 34.4 % Low 36.0-46.0 [facility] Comment on above: Order Comment: Raciel diaz Type: BLOOD SPECIMEN [facility]ing Facility: [facility] Address: [address] [place] [address] Performed By: #### 5 8410-2 #### [facility] CLIA [id number] [address] [place] [address] [place] Hemoglobin (Bld) [Mass/Vol] 11.9 g/dL Normal 11.5-15.5 [facility] Comment on above: Order Comment: Raciel diaz Type: BLOOD SPECIMEN [facility]ing Facility: [facility] Address: [address] [place] [address] Performed By: #### 5 8410-2 #### [facility] CLIA [id number] [address] [place] [address] [place] MCH (RBC) [Entitic mass] 29.5 pg Normal 26.0-34.0 [facility] Comment on above: Order Comment: Speci men Type: BLOOD SPECIMEN [facility]ing Facility: [facility] Address: [address] [place] [address] Performed By: #### 5 8410-2 #### [facility] CLIA [id number] [address] [place] [address] [place] MCHC (RBC) [Mass/Vol] 34.6 g/dL Normal 30.5-36.0 [facility] Comment on above: Order Comment: Speci men Type: BLOOD SPECIMEN [facility]ing Facility: [facility] Address: [address] [place] [address] Performed By: #### 5 8410-2 #### [facility] CLIA [id number] [address] [place] [address] [place] MCV (RBC) [Entitic vol] 85.4 fL Normal 80.0-100.0 [facility] Comment on above: Order Comment: Speci men Type: BLOOD SPECIMEN [facility]ing Facility: [facility] Address: [address] [place] [address] Performed By: #### 5 8410-2 #### [facility] CLIA [id number] [address] [place] [address] [place] Nucleated RBC (Bld) [#/Vol] 10*3/uL Normal <0.01 [facility] Comment on above: Order Comment: Speci men Type: BLOOD SPECIMEN [facility]ing Facility: [facility] Address: [address] [place] [address] Performed By: #### 5 8410-2 #### [facility] CLIA [id number] [address] [place] [address] [place] Platelet mean volume (Bld) [Entitic vol] 10.8 fL Normal 9.0-12.7 [facility] Comment on above: Order Comment: Speci men Type: BLOOD SPECIMEN [facility]ing Facility: [facility] Address: [address] [place] [address] Performed By: #### 5 8410-2 #### [facility] CLIA [id number] [address] [place] [address] [place] Platelets (Bld) [#/Vol] 260 10*3/uL Normal 150-400 [facility] Comment on above: Order Comment: Speci men Type: BLOOD SPECIMEN [facility]ing Facility: [facility] Address: [address] [place] [address] Performed By: #### 5 8410-2 #### [facility] CLIA [id number] [address] [place] [address] [place] RBC (Bld) [#/Vol] 4.03 10*6/uL Normal 3.90-5.20 [facility] Comment on above: Order Comment: Speci men Type: BLOOD SPECIMEN [facility]ing Facility: [facility] Address: [address] [place] [address] Performed By: #### 5 8410-2 #### [facility] CLIA [id number] [address] [place] [address] [place] WBC (Bld) [#/Vol] 11.48 10*3/uL High 3.70-11.00 [facility] Comment on above: Order Comment: Speci men Type: BLOOD SPECIMEN [facility]ing Facility: [facility] Address: [address] [place] [address] Performed By: #### 5 8410-2 #### [facility] CLIA [id number] [address] [place] [address] [place] GESTATIONAL GLUCOSE SCREEN, 1-HOUR, 50 GRAM, NON-FASTINGon 08-18-2025 Glucose [Mass/Vol] 122 mg/dL Normal 74-134 [facility] Comment on above: Order Comment: Speci men Type: BLOOD SPECIMEN [facility]ing Facility: [facility] Address: [address] [place] [address] Result Comment: [facility] Congress of Obstetricians and Gynecologists (Jazlyn/Aissatou) guidelines state a gestational diabetes mellitus positive screen is made, in women not previously diagnosed with overt diabetes, when the 1 hr plasma glucose level is equal to or above 140 mg/dL. [facility] Instrument And Control Technician and [facility] [place] recommends a 135 mg/dL cutoff. Performed By: #### G LTGST #### [facility] CLIA [id number] [address] [place] [address] [place] Reagin and Treponema pallidu m IgG and IgM [Interp]on 08-18-2025 T. pallidum IgG+IgM IA Ql (S) Non-Reactive Normal Nonreactive [facility] Comment on above: Order Comment: Speci men Type: BLOOD SPECIMEN [facility]ing Facility: [facility] Address: [address] [place] [address] Performed By: #### 5 5454-3 #### [facility] CLIA [id number] [address] [place] [address] [place] Reagin+T pallidum IgG+IgM Se rPl-Impon 08-18-2025 Reagin and Treponema pallidum IgG and IgM [Interp] Cannot exclude recent Treponemal infection if specimen collected within 7-10 days after appearance of suspect lesions or 2-3 weeks after an exposure. Clinical correlation is required. Normal [facility] Comment on above: Order Comment: Speci men Type: BLOOD SPECIMEN [facility]ing Facility: [facility] Address: [address] [place] [address] Performed By: #### 5 5454-3 #### [facility] CLIA [id number] [address] [place], [place] [address] [place] Examination level ultrasound on 07-21-2025 [facility] Radiology Study observation (narrative) [facility] [place] 07-06-2025 CNPN Telephone (OBGYWM) SEGUN MSUA ([id number]) 1990 F Date Time Provider Department 07/06/25 [...] Status:Closed by MARILEE NO on 07/06/25 Normal [facility] Examination level ultrasound on 07-04-2025 Indication Standard [...] 15 oz EFW by: Hadlock (HC-AC-FL) Extended Lubrication Servicer 6.9 mm CM 5.1 mm 43% Nicolaides [...] normal LVOT view: normal 3-vessel view: normal 1-bukmno-zshdwul view: normal Heart / Thorax Situs: situs [...] Read By: Val Ford M.D. MATERNAL MEDICINE [facility] Radiology Study observation (narrative) [facility] US BREAST LTD LTon 07-04 [facility] US BREAST LTD LT * * *Final Report* * * DATE OF EXAM: Jul 04 2025 2:39PM [facility] 0593 - [facility] US BREAST LTD LT / PROCEDURE REASON: multiple diagnoses * * * * Physician Interpretation * * * * [place] [address] #[id number] - [facility] US BREAST LTD LT HISTORY: 35 year-old [...] Francisco Hernandez M.D. Electronically signed on: 07/04/2025 Associate Broker: GUILLERMO Transcribe Date/Time: Jul 04 2025 2:23P Dictated by : FRANCISCO HERNANDEZ MD This examination was interpreted and the report reviewed and electronically signed by: FRANCISCO HERNANDEZ MD on Jul 04 2025 2:42PM EST [id number] Normal [facility] US Breast - left limitedon 0 07-04-2025 [...] Francisco Hernandez M.D. Electronically signed on: 07/04/2025 Associate Broker: GUILLERMO Transcribe Date/Time: Jul 04 2025 2:23P Dictated by : FRANCISCO HERNANDEZ MD This examination was interpreted and the report reviewed and electronically signed by: FRANCISCO HERNANDEZ MD on Jul 04 2025 2:42PM [facility] DIVISION OF RADIOLOGY * * *Final Report* * * DATE OF EXAM: Jul 04 2025 2:39PM [facility] 0593 - [employer] BREAST LTD LT / PROCEDURE REASON: multiple diagnoses * * * * Physician Interpretation * * * * [place] [address] #[id number] - [employer] BREAST [employer] HISTORY: 35 year-old patient presents for [...] the imaged area. DIVISION OF RADIOLOGY Provider, [facility] - 07/04/2025 * * *Final Report* * * DATE OF EXAM: Jul 04 2025 2:39PM [facility] 0593 [employer] BREAST [employer] / PROCEDURE REASON: multiple diagnoses * * * * Physician Interpretation * * * * [place] [address] #[id number] - [facility] [employer] BREAST [employer] LT HISTORY: 35 year-old patient presents for [...] Francisco Hernandez M.D. Electronically signed on: 07/04/2025 Associate Broker: GUILLERMO Transcribe Date/Time: Jul 04 2025 2:23P Dictated by : FRANCISCO HERNANDEZ MD This examination was interpreted and the report reviewed and electronically signed by: FRANCISCO HERNANDEZ MD on Jul 04 2025 2:42PM EST [facility] Radiology Study observation (narrative) [facility] US Breast - left limitedOrde red By: Ccf Provider on 07-04-2025 [facility] CBC W Auto Differential pane l (Bld)on 05-01-2025 Basophils (Bld) [#/Vol] 0.05 10*3/uL Normal <0.11 [facility] Comment on above: Order Comment: Speci men Type: BLOOD SPECIMEN Ordering Facility: [facility] Address: [address] [place] [address] Performed By: #### 5 7021-8 #### [facility] CLIA [id number] [address] [place] [address] [place] Basophils/100 WBC (Bld) 0.4 % Normal [facility] Comment on above: Order Comment: Speci men Type: BLOOD SPECIMEN Ordering Facility: [facility] Address: [address] [place] [address] Performed By: #### 5 7021-8 #### [facility] CLIA [id number] [address] [place] [address] [place] Differential cell count method Nom (Bld) Auto Normal [facility] Comment on above: Order Comment: Speci men Type: BLOOD SPECIMEN Ordering Facility: [facility] Address: [address] [place] [address] Performed By: #### 5 7021-8 #### [facility] CLIA [id number] [address] [place] [address] [place] Eosinophils (Bld) [#/Vol] 0.22 10*3/uL Normal <0.46 [facility] Comment on above: Order Comment: Speci men Type: BLOOD SPECIMEN Ordering Facility: [facility] Address: [address] [place] [address] Performed By: #### 5 7021-8 #### [facility] CLIA [id number] [address] [place] [address] [place] Eosinophils/100 WBC (Bld) 1.7 % Normal [facility] Comment on above: Order Comment: Speci men Type: BLOOD SPECIMEN Ordering Facility: [facility] Address: [address] [place] [address] Performed By: #### 5 7021-8 #### [facility] CLIA [id number] [address] [place] [address] [place] Erythrocyte distribution width (RBC) [Ratio] 14.0 % Normal 11.5-15.0 [facility] Comment on above: Order Comment: Speci men Type: BLOOD SPECIMEN Ordering Facility: [facility] Address: [address] [place] [address] Performed By: #### 5 7021-8 #### [facility] CLIA [id number] [address] [place] [address] [place] Hematocrit (Bld) [Volume fraction] 37.0 % Normal 36.0-46.0 [facility] Comment on above: Order Comment: Speci men Type: BLOOD SPECIMEN Ordering Facility: [facility] Address: [address] [place] [address] Performed By: #### 5 7021-8 #### [facility] CLIA [id number] [address] [place] [address] [place] Hemoglobin (Bld) [Mass/Vol] 12.2 g/dL Normal 11.5-15.5 [facility] Comment on above: Order Comment: Speci men Type: BLOOD SPECIMEN Ordering Facility: [facility] Address: [address] [place] [address] Performed By: #### 5 7021-8 #### [facility] CLIA [id number] [address] [place] [address] [place] Immature granulocytes (Bld) [#/Vol] 0.05 10*3/uL Normal <0.10 [facility] Comment on above: Order Comment: Speci men Type: BLOOD SPECIMEN Ordering Facility: [facility] Address: [address] [place] [address] Performed By: #### 5 7021-8 #### [facility] CLIA [id number] [address] [place] [address] [place] Immature granulocytes/100 WBC (Bld) 0.4 % Normal [facility] Comment on above: Order Comment: Speci men Type: BLOOD SPECIMEN Ordering Facility: [facility] Address: [address] [place] [address] Performed By: #### 5 7021-8 #### [facility] CLIA [id number] [address] [place] [address] [place] Lymphocytes (Bld) [#/Vol] 2.51 10*3/uL Normal 1.00-4.00 [facility] Comment on above: Order Comment: Speci men Type: BLOOD SPECIMEN Ordering Facility: [facility] Address: [address] [place] [address] Performed By: #### 5 7021-8 #### [facility] CLIA [id number] [address] [place] [address] [place] Lymphocytes/100 WBC (Bld) 19.4 % Normal [facility] Comment on above: Order Comment: Speci men Type: BLOOD SPECIMEN Ordering Facility: [facility] Address: [address] [place] [address] Performed By: #### 5 7021-8 #### [facility] CLIA [id number] [address] [place] [address] [place] MCH (RBC) [Entitic mass] 29.1 pg Normal 26.0-34.0 [facility] Comment on above: Order Comment: Speci men Type: BLOOD SPECIMEN Ordering Facility: [facility] Address: [address] [place] [address] Performed By: #### 5 7021-8 #### [facility] CLIA [id number] [address] [place] [address] [place] MCHC (RBC) [Mass/Vol] 33.0 g/dL Normal 30.5-36.0 [facility] Comment on above: Order Comment: Speci men Type: BLOOD SPECIMEN Ordering Facility: [facility] Address: [address] [place] [address] Performed By: #### 5 7021-8 #### [facility] CLIA [id number] [address] [place] [address] [place] MCV (RBC) [Entitic vol] 88.3 fL Normal 80.0-100.0 [facility] Comment on above: Order Comment: Speci men Type: BLOOD SPECIMEN Ordering Facility: [facility] Address: [address] [place] [address] Performed By: #### 5 7021-8 #### [facility] CLIA [id number] [address] [place] [address] [place] Monocytes (Bld) [#/Vol] 0.64 10*3/uL Normal <0.87 [facility] Comment on above: Order Comment: Speci men Type: BLOOD SPECIMEN Ordering Facility: [facility] Address: [address] [place] [address] Performed By: #### 5 7021-8 #### [facility] CLIA [id number] [address] [place] [address] [place] Monocytes/100 WBC (Bld) 4.9 % Normal [facility] Comment on above: Order Comment: Speci men Type: BLOOD SPECIMEN Ordering Facility: [facility] Address: [address] [place] [address] Performed By: #### 5 7021-8 #### [facility] CLIA [id number] [address] [place] [address] [place] Neutrophils (Bld) [#/Vol] 9.48 10*3/uL High 1.45-7.50 [facility] Comment on above: Order Comment: Speci men Type: BLOOD SPECIMEN Ordering Facility: [facility] Address: [address] [place] [address] Performed By: #### 5 7021-8 #### [facility] CLIA [id number] [address] [place] [address] [place] Neutrophils/100 WBC (Bld) 73.2 % Normal [facility] Comment on above: Order Comment: Speci men Type: BLOOD SPECIMEN Ordering Facility: [facility] Address: [address] [place] [address] Performed By: #### 5 7021-8 #### [facility] CLIA [id number] [address] [place] [address] [place] Nucleated RBC (Bld) [#/Vol] 10*3/uL Normal <0.01 [facility] Comment on above: Order Comment: Speci men Type: BLOOD SPECIMEN Ordering Facility: [facility] Address: [address] [place] [address] Performed By: #### 5 7021-8 #### [facility] CLIA [id number] [address] [place] [address] [place] Nucleated RBC/100 WBC (Bld) [Ratio] 0.0 /100 WBC Normal [facility] Comment on above: Order Comment: Speci men Type: BLOOD SPECIMEN Ordering Facility: [facility] Address: [address] [place] [address] Performed By: #### 5 7021-8 #### [facility] CLIA [id number] [address] [place] [address] [place] Platelet mean volume (Bld) [Entitic vol] 10.9 fL Normal 9.0-12.7 [facility] Comment on above: Order Comment: Speci men Type: BLOOD SPECIMEN [facility]ing Facility: [facility] Address: [address] [place] [address] Performed By: #### 5 7021-8 #### [facility] CLIA [id number] [address] [place] [address] [place] Platelets (Bld) [#/Vol] 271 10*3/uL Normal 150-400 [facility] Comment on above: Order Comment: Speci men Type: BLOOD SPECIMEN [facility]ing Facility: [facility] Address: [address] [place] [address] Performed By: #### 5 7021-8 #### [facility] CLIA [id number] [address] [place] [address] [place] RBC (Bld) [#/Vol] 4.19 10*6/uL Normal 3.90-5.20 [facility] Comment on above: Order Comment: Speci men Type: BLOOD SPECIMEN Ordering Facility: [facility] Address: [address] [place] [address] Performed By: #### 5 7021-8 #### [facility] CLIA [id number] [address] [place] [address] [place] WBC (Bld) [#/Vol] 12.95 10*3/uL High 3.70-11.00 [facility] Comment on above: Order Comment: Speci men Type: BLOOD SPECIMEN [facility]ing Facility: [facility] Address: [address] [place] [address] Performed By: #### 5 7021-8 #### [facility] CLIA [id number] [address] [place] [address] [place] HBV surface Ag Ser Qlon 06- HBV surface Ag Ql (S) Negative Normal Negative [facility] Comment on above: Order Comment: Speci men Type: BLOOD SPECIMEN [facility]ing Facility: [facility] Address: [address] [place] [address] Performed By: #### 3 1201-7, 94505-6, 5-3 #### [facility] CLIA [id number] [address] [place] [address] [place] HCV Ab Ser Qlon 05-01-2025 HCV Ab Ql (S) Negative Normal Negative [facility] Comment on above: Order Comment: Speci men Type: BLOOD SPECIMEN [facility]ing Facility: [facility] Address: [address] [place] [address] Result Comment: The result suggests no evidence of infection with Hepatitis C virus. Should recent infection be suspected, repeat testing may be considered 4-6 weeks after this draw. Performed By: #### 1 6128-1 #### [facility] CLIA [id number] [address] [place] [address] [place] HIV 1+2 Ab IA Qlon HIV 1 and 2 Ab IA.rapid Nom (S/P/Bld) Normal [facility] Comment on above: Order Comment: Speci men Type: BLOOD SPECIMEN [facility]ing Facility: [facility] Address: [address] [place] [address] Result Comment: Test not indicated. Performed By: #### 3 1201-7, 14740-1, 5-3 #### [facility] CLIA [id number] [address] [place] [address] [place] HIV 1+2 Ab+HIV1 p24 Ag IA Ql Non-Reactive Normal Nonreactive [facility] Comment on above: Order Comment: Speci men Type: BLOOD SPECIMEN [facility]ing Facility: [facility] Address: [address] [place] [address] Performed By: #### 3 1201-7, 04226-0, 5195-3 #### [facility] CLIA [id number] [address] [place] [address] [place] HIV immunoassay testing algorithm interpretation (S/P/Bld) [Interp] Normal [facility] Comment on above: Order Comment: Speci emily Type: BLOOD SPECIMEN [facility]ing Facility: [facility] Address: [address] [place] [address] Result Comment: No e vidence of HIV-1 or HIV-2 infection. Should recent infection be suspected, repeat testing may be considered 2-3 weeks after this draw. [place] Rev. Code 3701.243(E): This information has been [...] or diagnoses. Performed By: #### 3 1201-7, 30517-3, 5195-3 #### [facility] CLIA [id number] [address] [place] [address] [place] HbA1c (Bld)on 05-01-2025 Average glucose Estimated from glycated hemoglobin (Bld) [Mass/Vol] 94 mg/dL Normal [facility] Comment on above: Order Comment: Raciel emily Type: BLOOD SPECIMEN [facility]ing Facility: [facility] Address: [address] [place] [address] Result Comment: eAG: (Estimated average glucose) is a calculated value from HgbA1c and is environmental marketing representative of the average blood glucose level in the last 2-3 month period. Performed By: #### 5 5454-3 #### [facility] CLIA [id number] [address] [place] [address] [place] HbA1c (Bld) [Mass fraction] 4.9 % Normal 4.3-5.6 [facility] Comment on above: Order Comment: Raciel diaz Type: BLOOD SPECIMEN [facility]ing Facility: [facility] Address: [address] [place] [address] Result Comment: [place] Diabetes Association guidelines indicate that patients with HgbA1c in the range 5.7-6.4% are at increased risk for development of diabetes, and intervention by lifestyle modification may be beneficial. HgbA1c greater or equal to 6.5% is considered diagnostic of diabetes. Performed By: #### 5 5454-3 #### [facility] CLIA [id number] [address] [place] [address] [place] RUBELLA IGG ANTIBODYon 05-01 RUBELLA IGG AB, QUAL Positive Normal Positive [facility] Comment on above: Order Comment: Speci men Type: BLOOD SPECIMEN [facility] Facility: [facility] Address: [address] [place] [address] Result Comment: The result suggests recent or past exposure to Rubella virus or history of Rubella vaccination. Positive result may also be seen due to presence of passively-transferred antibodies. Please correlate with patient's history. Performed By: #### 5 5454-3 #### [facility] CLIA [id number] [address] [place] [address] [place] Reagin and Treponema pallidu m IgG and IgM [Interp]on 05-01-2025 T. pallidum IgG+IgM IA Ql (S) Non-Reactive Normal Nonreactive [facility] Comment on above: Order Comment: [facility] Type: BLOOD SPECIMEN Ordering Facility: [facility] Address: [address] [place] [address] Performed By: #### 3 1201-7, 54294-9, 5195-3 #### [facility] CLIA [id number] [address] [place] [address] [place] Reagin+T pallidum IgG+IgM Se rPl-Impon 05-01-2025 Reagin and Treponema pallidum IgG and IgM [Interp] Cannot exclude recent Treponemal infection if specimen collected within 7-10 days after appearance of suspect lesions or 2-3 weeks after an exposure. Clinical correlation is required. Normal [facility] Comment on above: Order Comment: Speci men Type: BLOOD SPECIMEN Ordering Facility: [facility] Address: [address] [place] [address] Performed By: #### 3 1201-7, 07744-4, 5195-3 #### [facility] CLIA [id number] [address] [place] [address] [place] TYPE + SCREEN PRENATALon ABO B Normal [facility] Comment on above: Order Comment: Speci men Type: BLOOD SPECIMEN Ordering Facility: [facility] Address: [address] [place] [address] Performed By: #### T SPN #### [facility] CLIA [id number] [address] [place] [address] [place] Rh Nom (Bld) Positive Normal [facility] Comment on above: Order Comment: Speci men Type: BLOOD SPECIMEN Ordering Facility: [facility] Address: [address] [place] [address] Performed By: #### T SPN #### [facility] CLIA [id number] [address] [place] [address] [place] TYPE AND SCREEN EXPIRATION 05/04/2025 23:59 Normal [facility] Comment on above: Order Comment: Speci men Type: BLOOD SPECIMEN Ordering Facility: [facility] Address: [address] [place] [address] Performed By: #### T SPN #### [facility] CLIA [id number] [address] [place] [address] [place] Bacteria Ur Culton Bacteria identified Cx Nom (U) CULTURE, URINE: No growth (<1,000 CFU/ml) Normal [facility] Comment on above: Performed By: #### 5 5454-3 #### [facility] CLIA [id number] [address] [place] [address] [place] C. trachomatis+N. gonorrhoea e DNA REJI+probe Ql (Unsp spec)on 03-31-2025 C. trachomatis rRNA REJI+probe Ql (Unsp spec) Not detected Normal Not detected [facility] Comment on above: Order Comment: Speci men Type: BLOOD SPECIMEN Ordering Facility: [facility] Address: [address] [place] [address] Performed By: #### 5 5454-3 #### [facility] CLIA [id number] [address] [place] [address] STATES [facility] N. gonorrhoeae rRNA REJI+probe Ql (Unsp spec) Not detected Normal Not detected [facility] Comment on above: Order Comment: Speci men Type: BLOOD SPECIMEN [facility]ing Facility: [facility] Address: [address] [place] [address] Performed By: #### 5 5454-3 #### [facility] CLIA [id number] [address] [place] [address] [place] POC LOAF COUNTER ULTRASOUNDon 03-31-20 25 Indication Viability; confirm cardiac [...] Read By: Sherley Adamson CNM MATERNAL MEDICINE [facility] Radiology Study observation (narrative) [facility] .Auto Diffon 12-01-2024 Basophil, Absolute 0.0 10 3/mcL Normal 0.0-0.2 [facility] Comment on above: Performed By: #### A DIFF, CBC, ANEU #### [address] [address] Basophils/100 WBC (Bld) 0.5 % Normal 0.0-2.5 [facility] Comment on above: Performed By: #### A DIFF, CBC, ANEU #### [address] [address] Eosinophil, Absolute 0.1 10 3/mcL Normal 0.0-0.7 [facility] Comment on above: Performed By: #### A DIFF, CBC, ANEU #### [address] [address] Eosinophils/100 WBC (Bld) 1.2 % Normal 0.0-7.0 [facility] Comment on above: Performed By: #### A DIFF, CBC, ANEU #### [address] [address] Lymphocyte, Absolute 2.5 10 3/mcL Normal 0.9-4.3 [facility] Comment on above: Performed By: #### A DIFF, CBC, ANEU #### [address] [address] Lymphocytes/100 WBC (Bld) 30.2 % Normal 20.0-40.0 [facility] Comment on above: Performed By: #### A DIFF, CBC, ANEU #### [address] [address] Monocyte, Absolute 0.5 10 3/mcL Normal 0.1-1.4 [facility] Comment on above: Performed By: #### A DIFF, CBC, ANEU #### [address] [address] Monocytes/100 WBC (Bld) 6.2 % Normal 2.0-13.0 [facility] Comment on above: Performed By: #### A DIFF, CBC, ANEU #### [address] [address] Neutrophils/100 WBC (Bld) 61.9 % Normal 50.0-75.0 [facility] Comment on above: Performed By: #### A DIFF, CBC, ANEU #### [address] [address] .NEUABSon 12-01-2024 Neutrophil, Absolute 5.2 10 3/mcL Normal 2.3-8.1 [facility] Comment on above: Performed By: #### A DIFF, CBC, ANEU #### [place] [address] CBCon 12-01-2024 Erythrocyte distribution width (RBC) [Ratio] 13.9 % Normal 11.5-15.5 [facility] Comment on above: Performed By: #### A DIFF, CBC, ANEU #### [place] [address] Hematocrit (Bld) [Volume fraction] 38.1 % Normal 34.0-46.0 [facility] Comment on above: Performed By: #### A DIFF, CBC, ANEU #### [place] [address] Hgb 13.0 G/dL Normal 12.0-16.0 [facility] Comment on above: Performed By: #### A DIFF, CBC, ANEU #### [address] [address] MCH (RBC) [Entitic mass] 28.5 pg Normal 27.0-33.0 [facility] Comment on above: Performed By: #### A DIFF, CBC, ANEU #### [place] [address] MCHC 34.1 G/dL Normal 32.0-36.0 [facility] Comment on above: Performed By: #### A DIFF, CBC, ANEU #### [place] [address] MCV (RBC) [Entitic vol] 83.8 fL Normal 80.0-99.0 [facility] Comment on above: Performed By: #### A DIFF, CBC, ANEU #### [place] [address] [place], [place] [address] Platelet 254 10 3/mcL Normal 150-450 [facility] Comment on above: Performed By: #### A DIFF, CBC, ANEU #### [place] [address] [place], [place] [address] Platelet mean volume (Bld) [Entitic vol] 9.0 fL Normal 6.6-10.5 [facility] Comment on above: Performed By: #### A DIFF, CBC, ANEU #### [address] [address] RBC 4.55 10 6/mcL Normal 4.10-5.30 [facility] Comment on above: Performed By: #### A DIFF, CBC, ANEU #### [address] [address] WBC 8.4 10 3/mcL Normal 4.5-10.8 [facility] Comment on above: Performed By: #### A DIFF, CBC, ANEU #### [address] [address] LABORATORYOrdered By: SYSTEM SYSTEM on 12-01-2024 Basophils [...] Interpretation and review of laboratory results Abnormal [facility] GLUCOSE, FASTINGon Glucose post fast [Mass/Vol] 87 mg/dL 74 - 99 mg/dL [facility] Comment on above: [place] Diabetes As sociation guidelines state that a [...] Interpretation and review of laboratory results Normal [facility] HBV surface Ag Ql (S)on Interpretation and review of laboratory results Normal [facility] HCV Ab Ql (S)on 09-19-2024 Interpretation and review of laboratory results Normal [facility] HEPATITIS B SURFACE ANTIGENo n 09-19-2024 HBV surface Ag Ql (S) Negative Negative [facility] HEPATITIS C ANTIBODY IA WITH CONFIRMATIONon 09-19-2024 HCV Ab Ql (S) Negative Negative [facility] Comment on above: The result suggests no evidence of active infection with Hepatitis C virus. Should recent infection be suspected, repeat testing may be considered 4-6 weeks after this draw. HIV 1+2 Ab IA Qlon HIV 1 and 2 Ab IA.rapid Nom (S/P/Bld) [facility] Comment on above: Test not indicated. HIV 1+2 Ab+HIV1 p24 Ag IA Ql Non-Reactive Nonreactive [facility] HIV immunoassay testing algorithm interpretation (S/P/Bld) [Interp] [facility] Comment on above: No evidence of HIV-1 or HIV-2 infection. Should recent infection be suspected, repeat testing may be considered 2-3 weeks after this draw. [place] Rev. Code 3701.243(E): This information has been [...] release of HIV test results or diagnoses. [facility] HbA1c (Bld)on 09-19-2024 Average glucose Estimated from glycated hemoglobin (Bld) [Mass/Vol] 97 mg/dL [facility] Comment on above: eAG: (Estimated aver age glucose) is a calculated value from HgbA1c and is environmental marketing representative of the average blood glucose level in the last 2-3 month period. HbA1c (Bld) [Mass fraction] 5.0 % 4.3 - 5.6 % [facility] Comment on above: [place] Diabetes As sociation guidelines indicate that patients with HgbA1c in the range 5.7-6.4% are at increased risk for development of diabetes, and intervention by lifestyle modification may be beneficial. HgbA1c greater or equal to 6.5% is considered diagnostic of diabetes. [facility] INSULIN ASSAY BLOODon 2023 Insulin Qn 3.8 u[IU]/mL 3.0 - 25.0 mU/L [facility] Insulin Qnon 09-19-2024 Interpretation and review of laboratory results Normal [facility] Reagin and Treponema pallidu m IgG and IgM [Interp]on 09-19-2024 T. pallidum IgG+IgM IA Ql (S) Non-Reactive Nonreactive [facility] SYPHILIS TREPONEMAL W/REFLEX on 09-19-2024 Reagin and Treponema pallidum IgG and IgM [Interp] Cannot exclude recent Treponemal infection if specimen collected within 7-10 days after appearance of suspect lesions or 2-3 weeks after an exposure. Clinical correlation is required. [facility] VITAMIN D 25 HYDROXYon 09-19 25-hydroxyvitamin D3 [Mass/Vol] 25.4 ng/mL Low 31.0 - 80.0 ng/mL [facility] Absolute lymphocyte countOrd ered By: Mindy Delvalle on 08-01-2023 Lymphocytes Auto (Unsp spec) [#/Vol] 1.80 10*3/uL 0.83-4.51 [facility] Basophil percentageOrdered B y: Mindy Delvalle on 08-01-2023 Basophils/100 WBC (Bld) 0.4 % 0-1 [facility] Eosinophils/100 WBC (Bld) 0.1 % 0-5 [facility] Neutrophils (Bld) [#/Vol] 11.0 10*3/uL 2.0-7.7 [facility] Neutrophils/100 WBC (Bld) 81.1 % 47-70 [facility] WBC (Bld) [#/Vol] 13.6 10*3/uL 4.4-11.0 [facility] Blood erythrocytes count (nu mber/volume)Ordered By: Mindy Delvalle on 08-01-2023 RBC (Bld) [#/Vol] 4.20 10*6/uL 4.2-5.4 [facility] Blood hemoglobin measurement (mass/volume)Ordered By: Mindy Delvalle on 08-01-2023 Hemoglobin (Bld) [Mass/Vol] 12.3 g/dL 12.0-15.0 [facility] Blood lymphocytes/100 leukoc ytesOrdered By: Mindy Delvalle on 08-01-2023 Lymphocytes/100 WBC (Bld) 13.2 % 19-41 [facility] Blood monocytes/100 leukocyt esOrdered By: Mindy Delvalle on 08-01-2023 Monocytes/100 WBC (Bld) 4.8 % 0-10 [facility] Blood platelet mean volumeOr dered By: Mindy Delvalle on 08-01-2023 Platelet mean volume (Bld) [Entitic vol] 10.9 fL 6.2-12.0 [facility] Determination of erythrocyte mean corpuscular volume (MCV)Ordered By: Mindy Delvalle on 08-01-2023 MCV (RBC) [Entitic vol] 86.7 fL 81-99 [facility] Hematocrit Auto (Bld) [Volum e fraction]Ordered By: Mindy Delvalle on 08-01-2023 Hematocrit (Bld) [Volume fraction] 36.4 % 37-47 [facility] - Hematology and Cell countsOrdered By: Mindy Delvalle on 08-01-2023 Erythrocyte distribution width (RBC) [Entitic vol] 40.6 fL 35.1-43.9 [facility] Erythrocyte distribution width (RBC) [Ratio] 13.0 % 11.6-14.6 [facility] Immature granulocytes/100 WBC (Bld) 0.400 % 0.0-0.9 [facility] Comment on above: IG% - Immature Granu locytes (promyelocytes, myelocytes and metamyelocytes) > 1% indicates that a LEFT SHIFT is Present. MCH (RBC) [Entitic mass] 29.3 pg 27.0-32.0 [facility] Nucleated RBC/100 WBC (Bld) [Ratio] 0 % 0-5 [facility] MCHC Auto (RBC) [Mass/Vol]Or dered By: Mindy Delvalle on 08-01-2023 MCHC (RBC) [Mass/Vol] 33.8 g/dL 32-36 [facility] Platelets bldOrdered By: Mirna Delvalle on 08-01-2023 Platelets (Bld) [#/Vol] 191 10*3/uL 150-450 [facility] Serum Treponema species anti body detectionOrdered By: Mindy Delvalle on 08-01-2023 Treponema sp Ab Ql (S) Non-Reactive [facility] URINE OB DIP B/Oon 3 Glucose Ql (U) Negative Neg mg/dL [facility] Protein.monoclonal (U) [Mass/Vol] Negative Neg mg/dL [facility] URINE OB DIP B/Oon 3 Glucose Ql (U) Negative Neg mg/dL [facility] Protein.monoclonal (U) [Mass/Vol] Negative Neg mg/dL [facility] URINE OB DIP B/Oon 3 Glucose Ql (U) Negative Neg mg/dL [facility] Protein.monoclonal (U) [Mass/Vol] Negative Neg mg/dL [facility] URINE OB DIP B/Oon 3 Glucose Ql (U) Negative Neg mg/dL [facility] Protein.monoclonal (U) [Mass/Vol] Negative Neg mg/dL [facility] URINE OB DIP B/Oon 3 Glucose Ql (U) Negative Neg mg/dL [facility] Protein.monoclonal (U) [Mass/Vol] Negative Neg mg/dL [facility] URINE OB DIP B/Oon 3 Glucose Ql (U) Negative Neg mg/dL [facility] Protein.monoclonal (U) [Mass/Vol] Negative Neg mg/dL [facility] URINE OB DIP B/Oon 3 Glucose Ql (U) Negative Neg mg/dL [facility] Protein.monoclonal (U) [Mass/Vol] Negative Neg mg/dL [facility] OBSTETRIC ULTRASOUND WHIon 0 03-13-2023 [facility] URINE OB DIP B/Oon 3 Glucose Ql (U) Negative Neg mg/dL [facility] Protein.monoclonal (U) [Mass/Vol] Negative Neg mg/dL [facility] HPV W/GENOTYPE THIN PREPon 0 01-27-2023 HPV 16 Ag Ql (Unsp spec) Negative Negative for HPV DNA high risk type 16 by PCR [facility] HPV 18 Ag Ql (Unsp spec) Negative Negative for HPV DNA high risk type 18 by PCR [facility] HPV 31+33+35+39+45+51+52+ 56+58+59+66+68 DNA REJI+probe Ql (Cvx) Negative for HPV DNA high risk types: 31,33,35,39,45,51,52, 56,58,59,66,68 by PCR. Negative for HPV DNA high risk types: 31,33,35,39,45,5 1,52,56,58,59,66 ,68 by PCR. [facility] HEP B SURF AG SCRNon 023 HBV surface Ag Ql (S) Negative Negative [facility] HEP C AB IA W/CONF SCRNon HCV Ab Ql (S) Negative Negative [facility] HIV 1+2 Ab IA Qlon HIV 1 and 2 Ab IA.rapid Nom [facility] HIV 1+2 Ab+HIV1 p24 Ag IA Ql Non-Reactive Nonreactive [facility] HIV Interpretation [facility] RUBELLA IGG ABon 01-26-2023 Rubella IgG, Qual Positive Positive [facility] Reagin and Treponema pallidu m IgG and IgM [Interp]on 01-26-2023 Syphilis Interpretation Cannot exclude recent Treponemal infection if specimen collected within 7-10 days after appearance of suspect lesions or 2-3 weeks after an exposure. Clinical correlation is required. [facility] T. pallidum IgG+IgM IA Ql (S) Non-Reactive Nonreactive [facility] C. trachomatis+N. gonorrhoea e DNA REJI+probe Ql (Unsp spec)on 01-24-2023 C. trachomatis DNA REJI+probe Ql (Unsp spec) Negative Negative for Chlamydia trachomatis by amplificaton [facility] N. gonorrhoeae DNA REJI+probe Ql (Unsp spec) Negative Negative for Neisseria gonorrhoeae by amplification [facility] Microscopic observation Gram stain Nom (Vag fld)on 01-24-2023 Bacterial Vaginosis BACTERIAL VAGINOSIS RESULT: Stain results consistent with bacterial vaginosis. Abnormal [facility] Bacterial Vaginosis No Yeast observed Abnormal [facility] Bacterial Vaginosis No Polymorphonuclear Leukocytes Abnormal [facility] T VAGINALIS AMPLIFICATIONon 01-24-2023 T. vaginalis DNA REJI+probe Ql (Unsp spec) Negative Negative for Trichomonas vaginalis by amplification [facility] TYPE + SCREEN PRENATALon ABO B [facility] HIstorical Ab Scr Status Negative [facility] Rh Nom (Bld) Positive [facility] Type and Screen Expiration 01/26/2023 23:59 [facility] URINE CULTUREon 01-24-2023 Bacteria identified Cx Nom (U) No growth (<1,000 CFU/ml) [facility] CBC panel Auto (Bld)on 01-23 Erythrocyte distribution width (RBC) [Ratio] 13.6 % 11.5 - 15.0 % [facility] Hematocrit (Bld) [Volume fraction] 38.2 % 36.0 - 46.0 % [facility] Hemoglobin (Bld) [Mass/Vol] 13.1 g/dL 11.5 - 15.5 g/dL [facility] MCH (RBC) [Entitic mass] 28.9 pg 26.0 - 34.0 pg [facility] MCHC (RBC) [Mass/Vol] 34.3 g/dL 30.5 - 36.0 g/ dL [facility] MCV (RBC) [Entitic vol] 84.3 fL 80.0 - 100.0 fL [facility] Nucleated RBC (Bld) [#/Vol] <0.01 k/uL [facility] Platelet mean volume (Bld) [Entitic vol] 10.2 fL 9.0 - 12.7 fL [facility] Platelets (Bld) [#/Vol] 297 10*3/uL 150 - 400 k/uL [facility] RBC (Bld) [#/Vol] 4.53 10*6/uL 3.90 - 5.20 m/uL [facility] WBC (Bld) [#/Vol] 11.78 10*3/uL High 3.70 - 11 .00 k/uL [facility] Vital Signs Date Time Vital Sign Value Performing Clinician Adrian jackson 07-21-2025 08:39-0400 Body mass index (BMI) [Ratio] 28.55 kg/m2 Jennifer Lutz APRN.CNM Work Phone: [facility] 07-21-2025 08:39-0400 Body weight 90.27 kg Jennifer Lutz APRN.CNM Work Phone: [facility] 07-21-2025 08:39-0400 Diastolic blood pressure 62 mm[Hg] Jennifer Lutz APRN.CNM Work Phone: [facility] 07-21-2025 08:39-0400 Systolic blood pressure 102 mm[Hg] Jennifer Aparicioorquidea KAYECNM Work Phone: [facility] 07-04-2025 14:59-0400 Body mass index (BMI) [Ratio] 28.44 kg/m2 [facility] 07-04-2025 14:59-0400 Body weight 89.9 kg [facility] 07-04-2025 14:59-0400 Diastolic blood pressure 60 mm[Hg] [facility] 07-04-2025 14:59-0400 Systolic blood pressure 112 mm[Hg] [facility] 06-02-2025 15:57-0400 Body mass index (BMI) [Ratio] 27.98 kg/m2 Kalie Ellington MD Work Phone: [facility] 06-02-2025 15:57-0400 Body weight 88.45 kg Kalie Ellington MD Work Phone: [facility] 06-02-2025 15:57-0400 Diastolic blood pressure 64 mm[Hg] Kalie Ellington MD Work Phone: [facility] 06-02-2025 15:57-0400 Systolic blood pressure 106 mm[Hg] Kalie Ellington MD Work Phone: [facility] 05-01-2025 15:46-0400 Body mass index (BMI) [Ratio] 28.12 kg/m2 Elie Urias MD Work Phone: [facility] 05-01-2025 15:46-0400 Body weight 88.91 kg Elie Urias MD Work Phone: [facility] 05-01-2025 15:46-0400 Diastolic blood pressure 68 mm[Hg] Elie Urias MD Work Phone: [facility] 05-01-2025 15:46-0400 Systolic blood pressure 106 mm[Hg] Elie Urias MD Work Phone: [facility] 03-31-2025 08:50-0400 Body height 177.8 cm Sherley Adamson APRN.CNM Work Phone: [facility] 03-31-2025 08:50-0400 Body mass index (BMI) [Ratio] 27.41 kg/m2 Sherley Adamson ACCESS ANALYST.CNM Work Phone: [facility] 03-31-2025 08:50-0400 Body weight 86.64 kg Sherley Adamson ACCESS ANALYST.CNM Work Phone: [facility] 03-31-2025 08:50-0400 Diastolic blood pressure 62 mm[Hg] Sherley Adamson ACCESS ANALYST.CNM Work Phone: [facility] 03-31-2025 08:50-0400 Systolic blood pressure 102 mm[Hg] Sherley Adamson ACCESS ANALYST.CNM Work Phone: [facility] 09-19-2024 15:57-0500 Body height 175.9 cm Nidia Moise ACCESS ANALYST.[employer] Work Phone: [facility] 09-19-2024 15:57-0500 Body mass index (BMI) [Ratio] 28.59 kg/m2 Nidia Hanina ACCESS ANALYST.[employer] Work Phone: [facility] 09-19-2024 15:57-0500 Body weight 88.45 kg Nidia Haury ACCESS ANALYST.[employer] Work Phone: [facility] 09-19-2024 15:57-0500 Diastolic blood pressure 70 mm[Hg] Nidia Haury ACCESS ANALYST.[employer]TER Work Phone: [facility] 09-19-2024 15:57-0500 Systolic blood pressure 102 mm[Hg] Nidia Haury ACCESS ANALYST.[employer]TER Work Phone: [facility] 08-02-2023 09:27-0400 Diastolic blood pressure 66 mm[Hg] [facility] 08-02-2023 09:27-0400 Heart rate 81 /min [facility] 08-02-2023 09:27-0400 Systolic blood pressure 102 mm[Hg] [facility] 08-02-2023 09:25-0400 SaO2% (BldA) [Mass fraction] 95 % [facility] 08-02-2023 09:10-0400 Body temperature 98.2 [degF] [facility] 08-02-2023 09:10-0400 Respiratory rate 18 /min [facility] 08-01-2023 07:55-0400 Body height 177.8 cm [facility] 08-01-2023 07:55-0400 Body mass index (BMI) [Ratio] 29.2 kg/m2 [facility] 08-01-2023 07:55-0400 Body weight 92.53 kg [facility] 07-30-2023 16:18-0400 Body weight 92.63 kg Jasmin Núñez MD Work Phone: [facility] 07-30-2023 16:18-0400 Diastolic blood pressure 70 mm[Hg] Jasmin Núñez MD Work Phone: [facility] 07-30-2023 16:18-0400 Systolic blood pressure 104 mm[Hg] Jasmin Núñez MD Work Phone: [facility] 07-23-2023 16:11-0400 Body weight 92.17 kg Elie Urias MD Work Phone: [facility] 07-23-2023 16:11-0400 Diastolic blood pressure 60 mm[Hg] Elie Urias MD Work Phone: [facility] 07-23-2023 16:11-0400 Systolic blood pressure 100 mm[Hg] Elie Urias MD Work Phone: [facility] 07-17-2023 16:26-0400 Body weight 92.53 kg Elie Urias MD Work Phone: [facility] 07-17-2023 16:26-0400 Diastolic blood pressure 60 mm[Hg] Elie Urias MD Work Phone: [facility] 07-17-2023 16:26-0400 Systolic blood pressure 106 mm[Hg] Elie Urias MD Work Phone: [facility] 07-09-2023 08:16-0400 Body weight 92.08 kg Otilia Sewell MD Work Phone: [facility] 07-09-2023 08:16-0400 Diastolic blood pressure 72 mm[Hg] Otilia Sewell MD Work Phone: [facility] 07-09-2023 08:16-0400 Systolic blood pressure 110 mm[Hg] Otilia Sewell MD Work Phone: [facility] 06-25-2023 16:03-0400 Body weight 91.63 kg Elie Urias MD Work Phone: [facility] 06-25-2023 16:03-0400 Diastolic blood pressure 70 mm[Hg] Elie Urias MD Work Phone: [facility] 06-25-2023 16:03-0400 Systolic blood pressure 108 mm[Hg] Elie Urias MD Work Phone: [facility] 05-21-2023 08:34-0400 Body weight 90.63 kg Jasmin Núñez MD Work Phone: [facility] 05-21-2023 08:34-0400 Diastolic blood pressure 60 mm[Hg] Jasmin Núñez MD Work Phone: [facility] 05-21-2023 08:34-0400 Systolic blood pressure 100 mm[Hg] Jasmin Núñez MD Work Phone: [facility] 04-16-2023 08:07-0400 Body weight 88.91 kg Jennifer Plotts ACCESS ANALYST.CNM Work Phone: [facility] 04-16-2023 08:07-0400 Diastolic blood pressure 62 mm[Hg] Jennifer Plotts ACCESS ANALYST.CNM Work Phone: [facility] 04-16-2023 08:07-0400 Systolic blood pressure 104 mm[Hg] Jennifer Plotts ACCESS ANALYST.CNM Work Phone: [facility] 02-16-2023 08:28-0400 Body weight 84.82 kg Mindy Delvalle MD Work Phone: [facility] 02-16-2023 08:28-0400 Diastolic blood pressure 72 mm[Hg] Mindy Delvalle MD Work Phone: [facility] 02-16-2023 08:28-0400 Systolic blood pressure 110 mm[Hg] Mindy Delvalle MD Work Phone: [facility] 01-23-2023 14:27-0500 Body height 177.8 cm Jasmin Núñez MD Work Phone: [facility] 01-23-2023 14:27-050 Body weight 84.55 kg Jasmin Núñez MD Work Phone: [facility] 01-23-2023 14:27-0500 Diastolic blood pressure 56 mm[Hg] Jasmin Núñez MD Work Phone: [facility] 01-23-2023 14:27-0500 Systolic blood pressure 100 mm[Hg] Jasmin Núñez MD Work Phone: [facility] Encounters Encounter Date Encounter Type Care Provider Facility Start: 11-12-2025 ambulatory No Primary Car e Physician Facility:[facility] Start: 09-22-2025 End: 09-22-2025 ambulatory MINDY DELVALLE Facility:[facility] Start: 09-08-2025 End: 09-08-2025 ambulatory KALIE ELLINGTON Facility:[facility] Start: 08-18-2025 End: 08-18-2025 ambulatory JENNIFER LUTZ Facility:[facility] Start: 07-21-2025 End: 07-21-2025 Patient encounter procedure Jennifer Lutz ACCESS ANALYST.CNM Work Phone: OB/Gynecology Comment on above: Encounter for superv ision of other normal in second trimester (HCC) (Primary Dx); 23 weeks gestation of (HCC); Screening for diabetes mellitus screening for malformation using ultrasonics (HCC) (Primary Dx); 23 weeks gestation of (HCC) Start: 07-21-2025 End: 07-21-2025 ambulatory VAL FORD Facility:[facility] Start: 07-06-2025 End: 07-06-2025 Telephone encounter Kalie Ellington MD Work Phone: OB/Gynecology Comment on above: Appointment Start: 07-04-2025 End: 07-04-2025 Patient encounter procedure Whi Tech 1 Vision Impaired Teacher [facility] Maternal Medicine Comment on above: screening for malformation using ultrasonics (HCC) (Primary Dx); 21 weeks gestation of (HCC) Start: 07-04-2025 End: 07-04-2025 ambulatory SHERLEY ADAMSON Facility:[facility] Start: 07-04-2025 End: 07-04-2025 Subsequent hospital visit by physician [facility] W[facility] Mob 2 Work Phone: Radiology Comment on above: 16 weeks gestation o f (HCC) [Z3A.16] Start: 06-02-2025 End: 06-02-2025 Patient encounter procedure Kalie Ellington MD Work Phone: OB/Gynecology Comment on above: 16 weeks gestation o f (HCC) (Primary Dx); Encounter for supervision of other normal in second trimester ([facility]); Breast pain, left Start: 06-02-2025 End: 06-02-2025 ambulatory KALIE ELLINGTON Facility:[facility] Start: 05-01-2025 End: 05-01-2025 ambulatory SHERLEY ADAMSON Facility:[facility] Start: 05-01-2025 End: 05-01-2025 Patient encounter procedure Elie Urias MD Work Phone: OB/Gynecology Comment on above: Encounter for superv ision of other normal , first trimester (HCC) (Primary Dx); 12 weeks gestation of ([facility]) Start: 03-31-2025 End: 03-31-2025 Patient encounter procedure Sherley Adamson APRN.CNM Work Phone: OB/Gynecology Comment on above: with uncer tain dates, antepartum (HCC) (Primary Dx); Encounter for supervision of other normal , first trimester ([facility]) Start: 03-31-2025 End: 03-31-2025 ambulatory SHERLEY ADAMSON Facility:[facility] Start: 12-01-2024 End: 12-05-2024 ambulatory JUNIOR GRANT DO Facility:[facility] Start: 12-01-2024 End: 12-05-2024 Outreach Lab JUNIOR GRANT DO [facility] Start: 09-19-2024 End: 09-19-2024 Patient encounter procedure Nidia Moise DUNIA.BROOMCORN SORTER Work Phone: OB/Gynecology Comment on above: Encounter for gyneco logical examination (general) (routine) without abnormal findings (Primary Dx); Screening cholesterol level; Encounter for screening for diabetes mellitus; Screening examination for STI; Screening for thyroid disorder; Malaise and fatigue Start: 09-19-2024 End: 09-19-2024 Patient encounter status Nidia Moise DUNIA.BROOMCORN SORTER Work Phone: [facility] Start: 08-03-2023 ambulatory Mindy hutson MD Work Phone: OB/Gynecology Comment on above: Ob Delivery Note Start: 08-01-2023 End: 08-02-2023 Evaluation and management of inpatient [facility] Work Phone: Start: 07-31-2023 Telephone encounter [...] 06-26-2023 ambulatory Elie Tao Work Phone: [facility] Start: 06-26-2023 Follow-up encounter Elie hewitt MD Work Phone: OB/Gynecology Comment on above: Skin rash follow up Start: 06-25-2023 End: 06-25-2023 Patient encounter procedure Elie rUias MD Work Phone: OB/Gynecology Comment on above: 34 weeks gestation o f (Primary Dx) Start: 05-21-2023 End: 05-21-2023 Patient encounter procedure Jasmin Núñez MD Work Phone: OB/Gynecology Comment on above: 29 weeks gestation o f (Primary Dx); Encounter for supervision of other normal in second trimester Start: 04-16-2023 End: 04-16-2023 Patient encounter procedure Jennifer Lutz ACCESS ANALYST.CNM Work Phone: OB/Gynecology Comment on above: 24 weeks gestation o f (Primary Dx) Start: 03-13-2023 End: 03-13-2023 Patient encounter procedure Vision Impaired Teacher [facility] Work Phone: OB/Gynecology Comment on above: [...] encounter aster m caregiver [facility] Provider [facility]IST[facility] Start: 01-22-2023 End: 01-22-2023 Nursing evaluation of patient and report Nurse Pnob [facility] Work Phone: OB/Gynecology Comment [...] Speci men Type: BLOOD SPECIMEN Ordering Facility: [facility] Address: [address] [place] [address] Performed By: #### T SPN #### CC [facility] BLOOD BANK [facility] [id number] [address] [place] [address] [place] Start: 03-31-2025 [...] 04-16-2023 URINE OB DIP B/O Estefanía Lutz ACCESS ANALYST.CNM Work Phone: Start: 03-13-2023 Us preg uterus [...] Author Start: 01-24-2028 HPV TESTING HPV TESTING [facility] Start: 01-24-2028 PAP TESTING PAP TESTING [facility] Start: 01-24-2028 Screening for malign ant neoplasm of cervix Cervical Cancer Screening [facility] Start: 09-17-2025 RSV Vaccine (1 - Ris k 1-dose series) RSV Vaccine (1 - Risk 1-dose series) [facility] Start: 08-18-2025 End: 08-18-2025 Patient encounter procedure 08/18/2025 3:10 PM EDT Routine Office Visit OB/Gynecology [address] [place] [address] Elie Urias MD [address] [place] [address] OB OB/Gynecology Comment on above: OB Start: 08-18-2025 End: 08-18-2025 ambulatory 08/18/2025 2:45 PM EDT Results Only Abdulaziz Ramos [facility] [address] [place] [address] [facility] Comment on above: [facility] Start: 07-21-2025 End: 10-20-2025 ANEMIA REFLEX PANEL ANEMIA REFLEX PANEL Lab Routine Encounter for supervision of other normal in second trimester ([facility]) Expected: 07/21/2025, Expires: 10/20/2025 [facility] Comment on above: Expected: 07/21/2025 , Expires: 10/20/2025 Start: 07-21-2025 End: 07-21-2026 GESTATIONAL GLUCOSE SCREEN, 1-HOUR, 50 GRAM, NON-FASTING GESTATIONAL GLUCOSE SCREEN, 1-HOUR, 50 GRAM, NON-FASTING Lab Routine Screening for diabetes mellitus Expected: 07/21/2025, Expires: 07/21/2026 [facility] Work Phone: Comment on above: Expected: 07/21/2025 , Expires: 07/21/2026 Start: 07-21-2025 End: 07-21-2026 SYPHILIS TREPONEMAL W/REFLEX SYPHILIS TREPONEMAL W/REFLEX Lab Routine Encounter for supervision of other normal in second trimester ([facility]) Expected: 07/21/2025, Expires: 07/21/2026 [facility] Comment on above: Expected: 07/21/2025 , Expires: 07/21/2026 Start: 07-21-2025 End: 07-21-2025 Patient encounter procedure Maternal Medicine Comment on above: Repeat anatomy Repeat Anatomy/OB Start: 07-17-2025 Influenza vaccination C [facility] Start: 07-06-2025 End: 07-06-2025 Patient encounter procedure 07/06/2025 8:00 AM EDT Routine Office Visit OB/Gynecology [address] [place] [address] Nidia Moise, DUNIA.BROOMCORN SORTER [address] [place] [address] ob OB/Gynecology Comment on above: ob Start: 07-04-2025 End: 07-04-2026 OBSTETRIC ULTRASOUND WHI OBSTETRIC ULTRASOUND WHI Anc Imaging Routine screening for malformation using ultrasonics (HCC) Expected: 07/04/2025, Expires: 07/04/2026 [facility] Work Phone: Comment on above: Expected: 07/04/2025 , Expires: 07/04/2026 Start: 06-29-2025 End: 06-29-2025 Patient encounter procedure 06/29/2025 3:40 PM EDT Routine Office Visit OB/Gynecology [address] [place] [address] Elie Urias MD [address] [place] [address] with uncertain dates, antepartum (HCC) [Z34.90] OB/Gynecology Comment on above: with uncer tain dates, antepartum (HCC) [Z34.90] Start: 06-29-2025 End: 06-29-2025 Patient encounter procedure 06/29/2025 2:30 PM EDT Routine Office Visit Maternal Medicine [address] [place] [address] with uncertain dates, antepartum (HCC) [Z34.90] Maternal Medicine Comment on above: with uncer tain dates, antepartum (HCC) [Z34.90] Start: 06-27-2025 End: 06-27-2025 Patient encounter procedure 06/27/2025 4:00 PM EDT Appointment Radiology [address] [place] [address] 16 weeks gestation of (HCC) [Z3A.16]; Breast pain, left [N64.4] Radiology Comment on above: 16 weeks gestation o f (HCC) [Z3A.16]; Breast pain, left [N64.4] Start: 06-02-2025 End: 06-02-2025 Patient encounter procedure 06/02/2025 3:50 PM EDT Routine Office Visit OB/Gynecology [address] [place] [address] Kalie Ellington MD [address] [place] [address] HIRAM AND US OB/Gynecology Comment on above: HIRAM AND US Start: 05-01-2025 End: 05-01-2025 Patient encounter procedure Maternal Medicine Comment on above: NT US and HIRAM Start: 03-31-2025 End: 06-30-2025 ANEMIA REFLEX PANEL ANEMIA REFLEX PANEL Lab Routine with uncertain dates, antepartum (HCC) Expected: 03/31/2025, Expires: 06/30/2025 [facility] Work Phone: Comment on above: Expected: 03/31/2025 , Expires: 06/30/2025 Start: 03-31-2025 End: 06-30-2025 Hemoglobin A1c in Blood HEMOGLOBIN A1C Lab Routine with uncertain dates, antepartum (HCC) Expected: 03/31/2025, Expires: 06/30/2025 [facility] Comment on above: Expected: 03/31/2025 , Expires: 06/30/2025 Start: 03-31-2025 End: 06-30-2025 Hepatitis B virus surface Ag [Presence] in Serum HEPATITIS B SURFACE ANTIGEN Lab Routine with uncertain dates, antepartum (HCC) Expected: 03/31/2025, Expires: 06/30/2025 [facility] Comment on above: Expected: 03/31/2025 , Expires: 06/30/2025 Start: 03-31-2025 End: 06-30-2025 Hepatitis C virus Ab [Presence] in Serum HEPATITIS C ANTIBODY IA WITH CONFIRMATION Lab Routine with uncertain dates, antepartum (HCC) Expected: 03/31/2025, Expires: 06/30/2025 [facility] Comment on above: Expected: 03/31/2025 , Expires: 06/30/2025 Start: 03-31-2025 End: 06-30-2025 HIV 1+2 Ab [Presence] in Serum or Plasma by Immunoassay HIV 1/2 COMBO WITH REFLEX TO DIFFERENTIATION Lab Routine with uncertain dates, antepartum (HCC) Expected: 03/31/2025, Expires: 06/30/2025 [facility] Comment on above: Expected: 03/31/2025 , Expires: 06/30/2025 Start: 03-31-2025 End: 03-31-2026 OBSTETRIC ULTRASOUND WHI OBSTETRIC ULTRASOUND WHI Anc Imaging Routine with uncertain dates, antepartum (HCC) Expected: 03/31/2025, Expires: 03/31/2026 [facility] Comment on above: Expected: 03/31/2025 , Expires: 03/31/2026 Start: 03-31-2025 End: 06-30-2025 RUBELLA IGG ANTIBODY RUBELLA IGG ANTIBODY Lab Routine with uncertain dates, antepartum (HCC) Expected: 03/31/2025, Expires: 06/30/2025 [facility] Comment on above: Expected: 03/31/2025 , Expires: 06/30/2025 Start: 03-31-2025 End: 06-30-2025 SYPHILIS TREPONEMAL W/REFLEX SYPHILIS TREPONEMAL W/REFLEX Lab Routine with uncertain dates, antepartum (HCC) Expected: 03/31/2025, Expires: 06/30/2025 [facility] Comment on above: Expected: 03/31/2025 , Expires: 06/30/2025 Start: 03-31-2025 End: 06-30-2025 TYPE + SCREEN TYPE + SCREEN Blood Bank Routine with uncertain dates, antepartum (HCC) Expected: 03/31/2025, Expires: 06/30/2025 [facility] Comment on above: Expected: 03/31/2025 , Expires: 06/30/2025 Start: 09-19-2024 End: 12-19-2024 Lipid 1996 panel - Serum or Plasma [facility] Work Phone: Comment on above: Expected: 09/19/2024 , Expires: 12/19/2024 Start: 09-19-2024 End: 12-19-2024 Thyrotropin [Units/volume] in Serum or Plasma [facility] Comment on above: Expected: 09/19/2024 , Expires: 12/19/2024 Start: 09-19-2024 End: 12-19-2024 Thyroxine (T4) free [Mass/volume] in Serum or Plasma [facility] Comment on above: Expected: 09/19/2024 , Expires: 12/19/2024 Start: 09-13-2024 Urine microalbumin profile [facility] Start: 07-17-2024 Covid-19 Vaccine ( season) Covid-19 Vaccine ( season) [facility] Start: 07-17-2024 Influenza vaccination Influenza Vacc ine (#1) [facility] Start: 08-02-2023 Patient discharge [facility] Start: 08-01-2023 Administration of medication [facility] Start: 08-01-2023 Application of ice collar, cap or bag [facility] Start: 08-01-2023 Catheterization of vein [facility] Start: 08-01-2023 Introduction of urin lori catheter [facility] Start: 08-01-2023 Measuring intake and output [facility] Start: 08-01-2023 Notification of physician [facility] Start: 08-01-2023 Procedure discontinued [facility] Start: 08-01-2023 Provision of activit y privileges [facility] Start: 08-01-2023 Vital signs measurements [facility] Start: 08-01-2023 [facility] Start: 08-01-2023 Admission procedure [facility] Start: 07-31-2023 End: 07-31-2024 OBSTETRIC ULTRASOUND WHI OBSTETRIC ULTRASOUND WHI Anc Imaging Routine Encounter for supervision of other normal in third trimester 41 weeks gestation of Expected: 07/31/2023, Expires: 07/31/2024 [facility] Work Phone: Comment on above: Expected: 07/31/2023 , Expires: 07/31/2024 Start: 07-17-2023 Influenza vaccination C [facility] Start: 04-16-2023 End: 06-16-2023 CBC W Auto Differential panel - Blood CBC + DIFF Lab Routine 24 weeks gestation of Expected: 04/16/2023, Expires: 06/16/2023 [facility] Work Phone: Comment on above: Expected: 04/16/2023 , Expires: 06/16/2023 Start: 04-16-2023 End: 06-16-2023 GEST GLUC SCREEN, 1-HR, 50 GM, NON-FASTING GEST GLUC SCREEN, 1-HR, 50 GM, NON-FASTING Lab Routine 24 weeks gestation of Expected: 04/16/2023, Expires: 06/16/2023 [facility] Work Phone: Comment on above: Expected: 04/16/2023 , Expires: 06/16/2023 Start: 04-16-2023 End: 06-16-2023 SYPHILIS TOTAL W/REFLEX SYPHILIS TOTAL W/REFLEX Lab Routine 24 weeks gestation of Expected: 04/16/2023, Expires: 06/16/2023 [facility] Work Phone: Comment on above: Expected: 04/16/2023 , Expires: 06/16/2023 Start: 01-23-2023 End: 01-24-2024 OBSTETRIC ULTRASOUND WHI OBSTETRIC ULTRASOUND WHI Anc Imaging Routine with care elsewhere, antepartum Expected: 01/23/2023, Expires: 01/24/2024 [facility] Work Phone: Comment on above: Expected: 01/23/2023 , Expires: 01/24/2024 Start: 11-16-2022 DEPRESSION ASSESSMENT DEPRESSION ASS ESSMENT [facility] Start: 07-17-2022 Influenza vaccination INFLUENZA (#1) [facility] Start: 2022 HPV TESTING HPV TESTING [facility] Start: 2019 HPV Vaccine (1 - 3-d ose SCDM series) HPV Vaccine (1 - 3-dose SCDM series) [facility] Start: 2013 PAP TESTING PAP TESTING [facility] Start: 2011 Hepatitis B Vaccine (1 of 3 - 19+ 3-dose series) Hepatitis B Vaccine (1 of 3 - 19+ 3-dose series) [facility] Start: 2010 Anxiety Screening Anxiety Screening [facility] Start: 2010 Depression Screening Depression Scre ening [facility] Start: 2010 HEPATITIS C SCREENING HEPATITIS C SC REENING [facility] Start: 2010 HIV SCREENING HIV SCREENING [facility] Start: 1992 COVID-19 VACCINE (#1) COVID-19 VACCI NE (#1) [facility] Start: 1992 HEPATITIS B (1 of 3 - 3-dose series) HEPATITIS B (1 of 3 - 3-dose series) [facility] Start: 1992 Hepatitis B Vaccine (1 of 3 - 3-dose series) Hepatitis B Vaccine (1 of 3 - 3-dose series) [facility] Bacteria identified in Urine by Culture BACTERIAL CULTURE, URINE Microbiology Routine with uncertain dates, antepartum ([facility]) 03/31/2025 9:52 AM EDT [facility] Chlamydia trachomatis+Neisseria gonorrhoeae DNA [Presence] in Unspecified specimen by REJI with probe detection GONORRHEA/CHLAMYDIA NAAT Lab Routine with uncertain dates, antepartum ([facility]) 03/31/2025 9:52 AM EDT [facility] PAP FLUID CERVICAL SCREENING PAP FLUID CERVICAL SCREENING Lab Routine Encounter for screening for malignant neoplasm of cervix Special screening examination for human papillomavirus (HPV) 01/23/2023 4:22 PM EST [facility] Work Phone: Patient Education After a Vaginal [facility] Work Phone: Patient referral [facility] Work Phone: ROUTINE, GR OUP B STREP PCR ROUTINE, GROUP B STREP PCR Microbiology Routine 36 weeks gestation of 07/09/2023 8:31 AM EDT [facility] Work Phone: End: 07-02-2026 US Breast - left limited US BREAST LTD LEFT Radiology Routine 16 weeks gestation of (HCC) Breast pain, left 1 Occurrences starting 06/02/2025 until 07/02/2026 [facility] Work Phone: Comment on above: 1 Occurrences starti ng 06/02/2025 until 07/02/2026 [facility] Immunizations Immunization Date Immunization Notes Care Provider Danita jj 09-13-2014 tetanus toxoid, redu angie diphtheria toxoid, and acellular pertussis vaccine, adsorbed Jasmin Núñez MD Work Phone: [facility] Work Phone: Payers Date Payer Category Payer Self-pay 2021 [employer] BLUE ACCE SS PPO [id number] 2021 Unknown [id number] 2021 Unknown [id number] 1992 Unknown [id number] Unknown [id number] Social History Date Type Detail Facility Start: 01-22-2023 End: 12-01-2024 Tobacco smoking status NHIS Never smoked tobacco [facility] Work Phone: Start: 06-29-2022 End: 07-21-2025 Alcohol intake Current non-drinker of alcohol (finding) [facility] Start: 09-13-2014 Alcohol Comment Occasional bee r or wine. rare use [facility] Start: 1990 Sex Assigned At Not on file C [facility] Start: 01-22-2023 Tobacco use and exposure Smoke less tobacco non-user [facility] Work Phone: Start: 01-22-2023 Education 17 [facility] Start: 11-07-2022 [facility] Start: 05-21-2023 End: 09-19-2024 History of Social function [facility] Start: 05-21-2023 End: 09-19-2024 Tobacco use panel [facility] Start: 1990 Sex Assigned At Female [facility] Start: 10-17-2012 National Score (1-10 0), lower number is lower risk 59 [facility] Sexual Orientation Kendrickmane Arteaga Sex Female (finding) Kendrick [facility]ae[facility] Start: 03-30-2025 Gender identity Identifies as female gender (finding) [facility] Goals Date Patient Goal Desired Activity /State Personal health goal Personal health goal Functional Status Date Assessment Result Facility 09-13-2014 Are you deaf, or do you have serious difficulty hearing No 09/13/2014 10:37 AM Mindy Albert MA No [facility] 09-13-2014 Are you blind, or do you have serious difficulty seeing, even when wearing glasses No 09/13/2014 10:37 AM Mindy Albert MA [facility] 09-13-2014 Do you have serious difficulty walking or climbing stairs No 09/13/2014 10:37 AM Mindy Albert MA [facility] 09-13-2014 Do you have difficul ty dressing or bathing No 09/13/2014 10:37 AM Mindy Albert MA [facility] 09-13-2014 Because of a physica l, mental, or emotional condition, do you have difficulty doing errands alone such as visiting a physician's office or shopping No 09/13/2014 10:37 AM Mindy Albert MA [facility] Mental Status Date Assessment Result Facility 09-13-2014 Because of a physica l, mental, or emotional condition, do you have serious difficulty concentrating, remembering, or making decisions No 09/13/2014 10:37 AM Mindy Albert MA No [facility] Clinical Notes 01-13-2023 to 07-21-2025 Quick Notes [...] or sooner if needed Jennifer Lutz APRN.CNM [facility] Work Phone: 07-21-2025 Miscellaneous Notes S: Segun [...] Jennifer Lutz APRN.CNM documented in this encounter [facility] 07-21-2025 Instructions Venecia Vogt MA - 07/21/2025 8:01 AM EDT SEQUENTIAL SCREENINGS The [facility] offers sequential screenings for women who are [...] It will require an appointment with our television technician. This is not an ultrasound performed [...] the above symptoms, contact our office at [phone] and ask to speak with a nurse. After hours, you can call doctors registry at [phone] OR call [facility] at [phone] and ask to have the doctor mergers and acquisitions consultant paged. If you consider this an emergency, dial 2-1-8 or go to your nearest emergency department. NEED HELP? Are you dealing with a violent or abusive relationship? Are you a victim of rape or sexual assult? Call [facility] [place] [facility] 24 hour Crisis Hotline: 489.270.3633 or 955-780-9018. MANUAL Your Guide to a Healthy manual is now on-line. Visit [email or web address]/[email or web address] ncyGuide to download your free copy documented in this encounter [facility] 07-06-2025 Telephone encounter Note FYI see note below. Next scheduled for f/u anatomy and OB visit with CP on 07/21/25. Daphne Perez RN [facility] 07-06-2025 Miscellaneous Notes FYI see note below. Next scheduled for f/u anatomy and OB visit with CP on 07/21/25. Daphne Perez RN Called pt to suggest HIRAM appt for this week, last HIRAM appt 06/02 patient feels that its not necessary and refuse appt. documented in this encounter [facility] 07-06-2025 Telephone encounter Note Called pt to suggest HIRAM appt for this week, last HIRAM appt 06/02 patient feels that its not necessary and refuse appt. [facility] 07-04-2025 Note HNO ID: [id number] Author: SHERLEY PETER RDMS Service: ? Author Type: Surveyor Mine Type: Progress Notes Filed: 07/06/2025 13:45 Note [...] PATIENT PRESENTS WITH AN IMPLANTABLE OR ATTACHED DIRECTOR CLINICAL DATA: No RADIOLOGY DEPARTMENT: Ultrasound PERIPHERAL IV DATA: Not applicable SIGNED BY: Sherley Peter RDMS RVT July 06, 2025 1:45 PM [facility] 06-02-2025 Progress note Formatting of t his [...] supervision of other normal in second trimester ([facility]) - ICD9: V22.1, ICD10: Z34.82 3. Breast pain, left - ICD9: 611.71, ICD10: N64.4 - US BREAST LTD LEFT Kalie Ellington MD [facility] 06-02-2025 Miscellaneous Notes S: Segun Musa is [...] month ASSESSMENT/PLAN: 1. 16 weeks gestation of ([facility]) - ICD9: V22.2, ICD10: Z3A.16 (primary diagnosis) - US BREAST LTD LEFT 2. Encounter for supervision of other normal in second trimester ([facility]) - ICD9: V22.1, ICD10: Z34.82 3. Breast pain, left - ICD9: 611.71, ICD10: N64.4 - US BREAST LTD LEFT Kalie Ellington MD documented in this encounter [facility] 06-02-2025 Instructions Tiffanie Colbert MA - 06/02/2025 3:56 PM EDT SEQUENTIAL SCREENINGS The [facility] offers sequential screenings for women who are [...] It will require an appointment with our television technician. This is not an ultrasound performed [...] the above symptoms, contact our office at [phone] and ask to speak with a nurse. After hours, you can call doctors registry at [phone] OR call [facility] at [phone] and ask to have the doctor mergers and acquisitions consultant paged. If you consider this an emergency, dial 9-6-6 or go to your nearest emergency department. NEED HELP? Are you dealing with a violent or abusive relationship? Are you a victim of rape or sexual assult? Call [facility] ([place]) 24 hour Crisis Hotline: 848.454.2220 or 309-205-2283. MANUAL Your Guide to a Healthy manual is now on-line. Visit [email or web address] ncyGuide to download your free copy documented in this encounter [facility] 05-01-2025 Note HNO ID: [id number] Author: ELIE URIAS MD Service: ? Author [...] - RTO 4 wks Elie Urias DO [facility] 05-01-2025 History of Present illness Narrative SW- [...] Elie Urias DO documented in this encounter [facility] 05-01-2025 Instructions Love Molina MA - 05/01/2025 3:45 PM EDT SEQUENTIAL SCREENINGS The [facility] offers sequential screenings for women who are [...] It will require an appointment with our television technician. This is not an ultrasound performed [...] the above symptoms, contact our office at [phone] and ask to speak with a nurse. After hours, you can call doctors registry at [phone] OR call [facility] at [phone] and ask to have the doctor mergers and acquisitions consultant paged. If you consider this an emergency, dial 9-1-9 or go to your nearest emergency department. NEED HELP? Are you dealing with a violent or abusive relationship? Are you a victim of rape or sexual assult? Call [facility] ([place]) 24 hour Crisis Hotline: 225.737.5332 or 281-325-0819. MANUAL Your Guide to a Healthy manual is now on-line. Visit [email or web address] ncyGuide to download your free copy documented in this encounter [facility] 03-31-2025 Progress note Formatting of t his note might be different from the original. NANNETTE, see progress note. Declines NIPT and uncertain if she would like first trimester anatomy US. Considering homebirth, uncertain at this time and does not have a clay miner. PN labs next visit. Sherley Adamson APRN.CNM [facility] 03-31-2025 Miscellaneous Notes NANNETTE, see progress note. Declines NIPT and uncertain if she would like first trimester anatomy US. Considering homebirth, uncertain at this time and does not have a clay miner. PN labs next visit. Sherley Adamson APRN.CNM documented in this encounter [facility] 03-31-2025 Note HNO ID: [id number] Author: JAE LERMA MA Service: ? Author Type: Dump Motorman Type: Progress Notes Filed: 03/31/2025 12:36 Note Text: OB point of care ultrasound was performed. See imaging tab for details. 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 As applicable, any other physician, advance practice provider, medical student, or other health professional student that will be observing or involved in the sensitive examination for educational or training purposes was discussed with the Patient or Authorized Validation Consultant. The Patient or Authorized Validation Consultant has agreed to proceed with the sensitive [...] Your guide to a health and the Automotive Instructor. 2) Screening: Hemoglobin A1C: ordered Baby Aspirin: [...] Sherley Adamson APRN.CNM documented in this encounter [facility] 03-30-2025 Note HNO ID: [id number] Author: SHERLEY ADAMSON APRN.CNM Service: ? 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 As applicable, any ot (more content not included)... [facility] 03-30-2025 Instructions Petra Hall MA - 03/30/2025 2:02 PM EDT Please select the following link to access the [facility] Your Guide to a Healthy . [email or web address] documented in this encounter [facility] 09-19-2024 Instructions Nidia Moise APRN.CNP - 09/19/2024 [...] (no maximum interval). documented in this encounter [facility] 09-19-2024 History of Present illness Narrative Segun [...] IAB0 Ectopic0 Multiple0 Live Births4 Comment: menarche-14 Sales Order Processor History LMP: 08/25/2024 (Exact Date), Having periods Age at Menarche: Age at First : Age at Menopause: Sales Order Processor History Comments: Sexual Activity: Yes; Male Contraception: [...] discussed with the Patient or Patient's Authorized Validation Consultant. As applicable, any other physician, advance practice provider, medical student, or other health professional student that will be observing or involved in the sensitive examination for educational or training purposes was discussed with the Patient or Authorized Validation Consultant. The Patient or Authorized Validation Consultant has agreed to proceed with the sensitive [...] external genitalia normal, normal Bartholin's glands, urethra, Oceano's glands, no vulvar lesions, no cervical lesions, [...] if she would like consult. Nidia Moise APRN.BROOMCORN SORTER documented in this encounter [facility] 08-03-2023 Miscellaneous Notes Patient delivered 08/01/23. Daphne [...] 08/10/2023 at 41w3d documented in this encounter [facility] 08-03-2023 History of Present illness Narrative Patient delivered via by Dr. Delvalle on 08/01/23 at [facility]. See OB history. Daphne Perez RN documented in this encounter [facility] 08-01-2023 History and physical note Note Date/Time August 01, 2023 12:15pm [facility] Medical Records Department [address] [place] [address] H&P Exam - STUDENT ADVISOR 08/01/23 1213 MR#: [id number] Acct: [id number] Name: SEGUN MUSA Rep #:[id number] : 1990 33 From: Mindy Delvalle MD PCP: Care Physician,No Primary Status :ADM IN Location: [place] [address]1 HPI - General General Date of Admission: 08/01/23 Date of Service: 08/01/23 Chief Complaint: labor HPI Narrative SEGUN MUSA, is a 33 F 4 para 3 who presented at 40 1/7 weeks gestation in spontaneous labor. She denied any vaginal bleeding or leaking of fluid. is uncomplicated to date Maternal Data Information Final CIARA: 07/31/23 Gestational age: 40 1/7 [facility] History no medical history [...] Delvalle MD; No Primary Care Physician~ Signed [facility] Work Phone: [phone]) 960-171909-16-2023 Procedure [facility] 07-30-2023 Miscellaneous Notes* Quick Notes - Jasmin Núñez MD - 07/30/2023 4:35 PM EDT KJ - No VB/LOF. Reports irregular ctxs & good FM. A&P: Reviewed labor & FM precautions Discussed recommendation for 41wk induction - informed consent signed. Patient will let us know tomorrow about scheduling. Jasmin Núñez MD [facility] Instructions* Patient Instructions* Jacqui Perez Ma - 07/30/2023 4:13 PM EDT SEQUENTIAL SCREENINGS The [facility] offers sequential screenings for women who are [...] testing. It will require an appointment withour television technician. This is not an ultrasound performed [...] the above symptoms, contact our office at [phone] and ask to speak with anurse. After hours, you can call doctors registry at [phone] OR call [facility] at [phone] ask to have the doctor mergers and acquisitions consultant paged. If you consider this an emergency, dial 9-1-1 or go to your nearest emergency department. NEED HELP? Are you dealing with a violent or abusive relationship? Are you a victim of rape or sexual assult? Call [facility] ([place]) 24 hour Crisis Hotline: 475.441.7322 or 021-858-3492. MANUAL Your Guide to a Healthy manual is now on-line. Visit [email or web address] to download your free copy documented [facility]09[facility]2023 Miscellaneous Notes* Quick Notes - Elie Urias MD - 07/27/2023 9:07 AM EDT SW- Pt doing well. Some ctx's. No vb, lof. Good FM. Requests membrane sweep. Discussed r/b/a to membrane sweep and performed today. Labor precautions reviewed. RTO 1 wk if undelivered. Elie Urias DO documented in [facility] encounter[facility]09-07-2023 Instructions* Patient Instructions* Love Molina MA - 07/23/2023 4:05 PM EDT SEQUENTIAL SCREENINGS The [facility] offers sequential screenings for women who are [...] testing. It will require an appointment withour television technician. This is not an ultrasound performed [...] the above symptoms, contact our office at [phone] and ask to speak with anurse. After hours, you can call doctors registry at [phone] OR call [facility] at [phone] ask to have the doctor mergers and acquisitions consultant paged. If you consider this an emergency, dial 91-3 or go to your nearest emergency department. NEED HELP? Are you dealing with a violent or abusive relationship? Are you a victim of rape or sexual assult? Call [facility] ([place]) 24 hour Crisis Hotline: 714.897.4470 or 914-573-8306. MANUAL Your Guide to a Healthy manual is now on-line. Visit [email or web address] to download your free copy documented in this encounterR[facility]09-01-2023 Miscellaneous Notes* Quick Notes - Elie Urias [...] daily kick counts. Labor precautions reviewed. Elie Urais DO documented in this encounterR[facility]09-01-2023 Instructions* Patient Instructions* Love Molina MA - 07/17/2023 4:21 PM EDT SEQUENTIAL SCREENINGS The [facility] offers sequential screenings for women who are [...] testing. It will require an appointment withour television technician. This is not an ultrasound performed [...] the above symptoms, contact our office at [phone] and ask to speak with anurse. After hours, you can call doctors registry at [phone] OR call [facility] at [phone] ask to have the doctor mergers and acquisitions consultant paged. If you consider this an emergency, dial 9-4-0 or go to your nearest emergency department. NEED HELP? Are you dealing with a violent or abusive relationship? Are you a victim of rape or sexual assult? Call [facility] [place] ([facility] 24 hour Crisis Hotline: 165.505.3260 or 172-890-1350. MANUAL Your Guide to a Healthy manual is now on-line. Visit [email or web address] to download your free copy documented in this encounterR[facility]08-24-2023 Miscellaneous Notes* Quick Notes - Otilia Swenson MD - 07/09/2023 8:25 AM EDT DM- Pt doing well today. Denies Vaginal Bleeding, Leaking fluid, or contractions. Pt reports good movement. GBS today. Vertex confirmed on ultrasound. RTO one week. Kick counts and labor reviewed. Otilia Sewell MD documented in this encounterR[facility]08-24-2023 Instructions* Patient Instructions* Laura Vogt Mahany - 07/09/2023 8:10 AM EDT SEQUENTIAL SCREENINGS The [facility] offers sequential screenings for women who are [...] testing. It will require an appointment withour television technician. This is not an ultrasound performed [...] the above symptoms, contact our office at [phone] and ask to speak with anurse. After hours, you can call doctors registry at [phone] OR call [facility] at [phone] ask to have the doctor mergers and acquisitions consultant paged. If you consider this an emergency, dial or go to your nearest emergency department. NEED HELP? Are you dealing with a violent or abusive relationship? Are you a victim of rape or sexual assult? Call [facility] [place] ([facility] 24 hour Crisis Hotline: 539.431.7187 or 657-761-8749. MANUAL Your Guide to a Healthy manual is now on-line. Visit [email or web address] to download your free copy documented in this encounterR[facility] Institute08-14-2023 Miscellaneous Notes* Telephone Encounter - Mayda Hall LPN - 06/29/2023 11:51 AM EDT Fl[employer] message left for pt has been viewed with no further questions. Maydamadi Hall LPN documented in this encounterR[facility] Institute08-10-2023 Miscellaneous Notes* Quick Notes - Elie Urias [...] visits. Elie Urias DO documented in this encounterR[facility]08-10-2023 Instructions* Patient Instructions* Venecia Vogt Ma - 06/25/2023 4:06 PM EDT SEQUENTIAL SCREENINGS The [facility] offers sequential screenings for women who are [...] testing. It will require an appointment withour television technician. This is not an ultrasound performed [...] the above symptoms, contact our office at [phone] and ask to speak with anurse. After hours, you can call doctors registry at [phone] OR call [facility] at [phone] ask to have the doctor mergers and acquisitions consultant paged. If you consider this an emergency, dial 9-1- or go to your nearest emergency department. NEED HELP? Are you dealing with a violent or abusive relationship? Are you a victim of rape or sexual assult? Call [facility] ([place]) 24 hour Crisis Hotline: 992.555.6984 or 931-944-2448. MANUAL Your Guide to a Healthy manual is now on-line. Visit [email or web address] to download your free copy documented in this encounterRiver[facility] Institute07-06-2023 Miscellaneous Notes* Quick Notes - Jasmin Núñez MD - 05/21/2023 9:30 AM EDT KJ - No VB/LOF/ctxs. Reports good FM. A&P: 28wk labs today Declines LARC Tdap next visit Reviewed PTL & FM precautions Jasmin Núñez MD documented in this encounterR[facility] Institute07-06-2023 Instructions* Patient Instructions* Love Molina MA - 05/21/2023 8:21 AM EDT SEQUENTIAL SCREENINGS The [facility] offers sequential screenings for women who are [...] testing. It will require an appointment withour television technician. This is not an ultrasound performed [...] the above symptoms, contact our office at [phone] and ask to speak with anurse. After hours, you can call doctors registry at [phone] OR call [facility] at [phone] ask to have the doctor mergers and acquisitions consultant paged. If you consider this an emergency, dial 8-1-4 or go to your nearest emergency department. NEED HELP? Are you dealing with a violent or abusive relationship? Are you a victim of rape or sexual assult? Call [facility] [place] ([facility] 24 hour Crisis Hotline: 977.543.6080 or 395-386-0743. MANUAL Your Guide to a Healthy manual is now on-line. Visit [email or web address] to download your free copy documented in this encounterR[facility]06-01-2023 Miscellaneous Notes* Quick Notes - Jennifer Lutz [...] GCT. Jennifer Lutz APRN.CNM documented in this encounterRiver[facility] Institute06-01-2023 Instructions* Patient Instructions* Jae Lerma Blindstitch Hemmer - 04/16/2023 8:09 AM EDT SEQUENTIAL SCREENINGS The [facility] offers sequential screenings for women who are [...] testing. It will require an appointment withour television technician. This is not an ultrasound performed [...] the above symptoms, contact our office at [phone] and ask to speak with anurse. After hours, you can call doctors registry at [phone] OR call [facility] at [phone] ask to have the doctor mergers and acquisitions consultant paged. If you consider this an emergency, dial 9--1 or go to your nearest emergency department. NEED HELP? Are you dealing with a violent or abusive relationship? Are you a victim of rape or sexual assult? Call [facility] ([place]) 24 hour Crisis Hotline: 316.680.5002 or 497-543-9204. MANUAL Your Guide to a Healthy manual is now on-line. Visit [email or web address] to download your free copy documented in this encounterR[facility] Institute04-03-2023 Miscellaneous Notes* Quick Notes - Minyd Delvalle MD - 02/16/2023 8:40 AM EDT RR- No VB/LOF. Took medication for BV and asymptomatic at this point. US for anatomy scheduled. Taking PNV. Declines aneuploidy screening. Mindy Delvalle MD documented in this encounterR[facility] Institute04-03-2023 Instructions* Patient Instructions* Tiffanie Colbert Ma - 02/16/2023 8:19 AM EDT SEQUENTIAL SCREENINGS The [facility] offers sequential screenings for women who are [...] testing. It will require an appointment withour television technician. This is not an ultrasound performed [...] the above symptoms, contact our office at [phone] and ask to speak with anurse. After hours, you can call doctors registry at [phone] OR call [facility] at [phone] ask to have the doctor mergers and acquisitions consultant paged. If you consider this an emergency, dial 9--2 or go to your nearest emergency department. NEED HELP? Are you dealing with a violent or abusive relationship? Are you a victim of rape or sexual assult? Call [facility] ([place]) 24 hour Crisis Hotline: 908.794.4759 or 591-377-6028. MANUAL Your Guide to a Healthy manual is now on-line. Visit [email or web address] to download your free copy documented in this encounterR[facility] Institute03-13-2023 Miscellaneous Notes* Telephone Encounter - Shelley Robles [...] for Flagyl is pending. documented in this encounterRiverview Health Institute03-10-2023 History of Present illness Narrative* Jasmin Núñez [...] recorded Apgar5: Not recorded Living: Not recorded Edger Hand offered: Patient declines. HPI: Segun Musa is [...] Multivitamin with Folic acid: Yes Occupation: none Alevism or heritage: No Would refuse blood transfusion if medically necessary: No BMI 26.75 kg/(m^2) Patient BMI over 30? 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 Jasmin Núñez MD documented in this encounterR[facility] Institute03-10-2023 Instructions* Patient Instructions* Jacqui Perez Ma - 01/23/2023 2:13 PM EST Please select the following link to access the [facility] Your Guide to a Healthy . [email or web address] documented in this encounterRiverview Health Institute03-09-2023 History of Present illness Narrative* Lynn Stanley [...] Living: None, Comments: None documented in this encounterRiverview Health Institute03-09-2023 Miscellaneous Notes* Quick Notes - Lynn Stanley [...] does states shejaylyns had 1 visit at [facility] in [place] by Dr. Hayden. Patient is advised to have her medical records sent here or sign a release at her new OB appointment. Our fax number was provided. Patient declines aneuploidy screening and genetic carrier screening testing. documented in this encounterRiverview Health Institute02-28-2023 Miscellaneous Notes* Telephone Encounter - Kalie Cheney RN - 01/13/2023 12:47 PM EST Scheduled * Telephone Encounter - Lynn Stanley RN - 01/13/2023 12:18 PM EST Left message for patient to return phone call. Patient has an appointment with Dr Núñez for NOB appointment. Please schedule PNOB appointment. Please schedule for 60 minutes. New to [facility] documented in this encounterRiverview Health InstituteDischarge summary Author Mindy Delvalle [facility] August 02, 2023 9:37am Note Date/Time August 02, 2023 9:37am [facility] Medical Records Department [address] [place] [address] Discharge Summary 08/02/23 0936 MR#: [id number] Acct: [id number] Name: SEGUN MUSA Rep #:[id number] : 1990 33 From: Mindy Delvalle MD PCP: Care Physician,No Primary Status :ADM IN [facility] Date of Admission: 08/01/23 Primary Care [...] in 6 weeks or as needed. Call [phone] send a [employer] message. Meaningful Use Info Meaningful Use Diagnoses [...] Delvalle MD; No Primary Care Physician~ Signed [facility] Work Phone: Evaluation + Plan note No data available for this section [facility] Evaluation note* Diagnosis Encounter for supervision of normal in multigravida in first trimester- Primary Family history of genetic disease Family history of other condition with care elsewhere, antepartum [facility]* Diagnosis BV (bacterial vaginosis)- Primary Vaginitis and vulvovaginitis, unspecified [facility]* Diagnosis Encounter for screening for malignant neoplasm of cervix- Primary Screening for malignant neoplasm of the cervix Special screening examination for human papillomavirus (HPV) with care elsewhere, antepartum Vaginal itching Pruritus of genital organs [facility]* Diagnosis Encounter for supervision of other normal in second trimester- Primary 16 weeks gestation of state, incidental [facility]* Diagnosis Encounter for anatomic survey- Primary with care elsewhere, antepartum 20 weeks gestation of state, incidental [facility] Diagnosis 24 weeks gestation of - Primary state, incidental [facility]* Diagnosis 29 weeks gestation of - Primary state, incidental Encounter for supervision of other normal in second trimester documented in this encounter [facility]* Diagnosis 34 weeks gestation of - Primary state, incidental [facility]* Diagnosis Encounter for supervision of other normal in third trimester- Primary 36 weeks gestation of state, incidental [facility]* Diagnosis 38 weeks gestation of - Primary state, incidental Encounter for supervision of other normal in third trimester [facility]* Diagnosis 39 weeks gestation of - Primary state, incidental with care elsewhere, antepartum [facility]* Diagnosis Onset Date Resolution Status 40 weeks gestation of acute Spontaneous onset of labor a cute (spontaneous vaginal delivery) [facility] Work Phone: Evaluation note* Diagnosis Encounter for supervision of other normal in third trimester- Primary 41 weeks gestation of Post term , unspecified episode of care documented in this encounter [facility] Diagnosis Encounter for gynecological examination (general) (routine) without abnormal findings- Primary Screening cholesterol level Screening for lipoid disorders Encounter for screening for diabetes mellitus Screening for diabetes mellitus Screening examination for STI Screening for thyroid disorder Malaise and fatigue Other malaise and fatigue [facility]* Diagnosis with uncertain dates, antepartum (HCC)- Primary state, incidental Encounter for supervision of other normal , first trimester ([facility]) [facility]* Diagnosis Encounter for supervision of other normal , first trimester ([facility])- Primary 12 weeks gestation of ([facility]) state, incidental documented [facility] this [facility]* Diagnosis 16 weeks gestation of ([facility])- Primary state, incidental Encounter for supervision of other normal in second trimester ([facility]) Breast pain, left Mastodynia documented [facility] this [facility]* Diagnosis screening for malformation using ultrasonics ([facility])- Primary Encounter for routine screening for malformation using ultrasonics 21 weeks gestation of ([facility]) state, incidental documented in this encounter [facility] note* Diagnosis 16 weeks gestation of (HCC) state, incidental Breast pain, left Mastodynia documented [facility]* Diagnosis Encounter for supervision of other normal in second trimester ([facility])- Primary 23 weeks gestation of ([facility]) state, incidental Screening for diabetes mellitus [facility]* Diagnosis screening for malformation using ultrasonics ([facility])- Primary Encounter for routine screening for malformation using ultrasonics 23 weeks gestation of ([facility]) state, incidental [facility] No data available for this section [facility] Progress note Author Mindy Delvalle [facility] August 02, 2023 9:32am Note Date/Time August 02, 2023 9:33am [facility] Medical Records Department [address] [place] [id number] Progress Note 08/02/23929 MR#: [id number] Acct: [id number] Name: SEGUN MUSA Rep #:[id number] : 1990 33 From: Mindy Delvalle MD PCP: Care Physician,No Primary Status :ADM IN [id number] Progress Note Pain well controlled with average lochia. Assessment & Plan Assessment/Plan (1) (spontaneous vaginal delivery): PLAN: day #1 status post vaginal delivery. is breast- feedingand doing well. Patient is doing well and desires discharge home. 08/02/23 0932 <Electronically signed by Mindy Delvalle MD> Mindy Delvalle MD Cosigner Signature (if applicable): CC: ~ Signed [facility] Work Phone: Progress note No data available for this section [facility] Reason for referral (narrative)* Diagnostic Procedure Only (Routine) - Authorized Specialty Diagnoses / Procedures Referred By Contac t Referred To Contact [facility] Diagnoses with care elsewhere, antepartum Procedures OBSTETRIC ULTRASOUND WHI US PREG UTERUS AFTER 1ST TRIMEST GESTATION Jasmin Núñez MD [address] [place] [address] [facility] Simple Admit [place] [id number] Referral ID Status Reason Start Date Expiration Date Visits Requested Visits Authorized [id number] Authorized Auto-Generat ed Referral 01/23/2023 01/23/2024 1 1 [facility] for referral (narrative)* Diagnostic Procedure Only (Routine) - Pending Review Specialty Diagnoses / Procedures Referred By Contac t Referred To Contact [facility] Diagnoses Encounter for supervision of other normal in third trimester 41 weeks gestation of Procedures OBSTETRIC ULTRASOUND WHI US PREG UTERUS AFTER 1ST TRIMEST GESTATION Mindy Delvalle MD [address] [place] [address] [facility] [place] [address] Referral ID Status Reason Start Date Expiration Date Visits Requested Visits Authorized [id number] Pending Review Auto-Generat ed Referral 07/31/2023 07/30/2024 1 1 [facility] Diagnostic Procedure Only (Routine) - Closed Specialty Diagnoses / Procedures Referred By Corry t Referred To Contact [facility] Diagnoses 16 weeks gestation of (HCC) Breast pain, left Procedures US BREAST LTD LEFT US BREAST UNI REAL TIME WITH IMAGE LIMITED Kalie Ellington MD [address] [place] [address] Phone: tel: fax: [facility] [address] [place] [address] Referral ID Status Reason Start Date Expiration Date V isits Requested Visits Authorized [id number] Closed Auto-Generate d Referral 06/02/2025 07/02/2026 1 1 [facility] Health Concerns Problem Noted Date OB Reminders [...] No August 01, 2023 7:55am Power of Cell Efficiency Supervisor No July 7:55am Summary Purpose Family History No Family History Records Found Additional Source Comments Source Comments (unrecognize d section and content) In the event this informatio n is protected by the Federal Confidentiality of Alcohol and Drug Abuse Patient Records regulations: The Federal rules restrict any use of the information to criminally investigate or prosecute any alcohol or drug abuse patient.[facility] the event this information is protected by the Federal Confidentiality of Alcohol and Drug Abuse Patient Records regulations: The Federal rules restrict any use of the information to criminally investigate or prosecute any alcohol or drug abuse patient.[facility] the event this information is protected by the Federal Confidentiality of Alcohol and Drug Abuse Patient Records regulations: The Federal rules restrict any use of the information to criminally investigate or prosecute any alcohol or drug abuse patient.[facility] the event this information is protected by the Federal Confidentiality of Alcohol and Drug Abuse Patient Records regulations: The Federal rules restrict any use of the information to criminally investigate or prosecute any alcohol or drug abuse patient.[facility] the event this information is protected by the Federal Confidentiality of Alcohol and Drug Abuse Patient Records regulations: The Federal rules restrict any use of the information to criminally investigate or prosecute any alcohol or drug abuse patient.[facility] the event this information is protected by the Federal Confidentiality of Alcohol and Drug Abuse Patient Records regulations: The Federal rules restrict any use of the information to criminally investigate or prosecute any alcohol or drug abuse patient.[facility] the event this information is protected by the Federal Confidentiality of Alcohol and Drug Abuse Patient Records regulations: The Federal rules restrict any use of the information to criminally investigate or prosecute any alcohol or drug abuse patient.[facility] the event this information is protected by the Federal Confidentiality of Alcohol and Drug Abuse Patient Records regulations: The Federal rules restrict any use of the information to criminally investigate or prosecute any alcohol or drug abuse patient.[facility] the event this information is protected by the Federal Confidentiality of Alcohol and Drug Abuse Patient Records regulations: The Federal rules restrict any use of the information to criminally investigate or prosecute any alcohol or drug abuse patient.[facility] the event this information is protected by the Federal Confidentiality of Alcohol and Drug Abuse Patient Records regulations: The Federal rules restrict any use of the information to criminally investigate or prosecute any alcohol or drug abuse patient.[facility] Institute[facility] the event this information is protected by the Federal Confidentiality of Alcohol and Drug Abuse Patient Records regulations: The Federal rules restrict any use of the information to criminally investigate or prosecute any alcohol or drug abuse patient.[facility] the event this information is protected by the Federal Confidentiality of Alcohol and Drug Abuse Patient Records regulations: The Federal rules restrict any use of the information to criminally investigate or prosecute any alcohol or drug abuse patient.[facility] the event this information is protected by the Federal Confidentiality of Alcohol and Drug Abuse Patient Records regulations: The Federal rules restrict any use of the information to criminally investigate or prosecute any alcohol or drug abuse patient.[facility] Institute[facility] the event this information is protected by the Federal Confidentiality of Alcohol and Drug Abuse Patient Records regulations: The Federal rules restrict any use of the information to criminally investigate or prosecute any alcohol or drug abuse patient.[facility] the event this information is protected by the Federal Confidentiality of Alcohol and Drug Abuse Patient Records regulations: The Federal rules restrict any use of the information to criminally investigate or prosecute any alcohol or drug abuse patient.[facility] Institute[facility] the event this information is protected by the Federal Confidentiality of Alcohol and Drug Abuse Patient Records regulations: The Federal rules restrict any use of the information to criminally investigate or prosecute any alcohol or drug abuse patient.[facility] Institute[facility] the event this information is protected by the Federal Confidentiality of Alcohol and Drug Abuse Patient Records regulations: The Federal rules restrict any use of the information to criminally investigate or prosecute any alcohol or drug abuse patient.[facility] Institute[facility] the event this information is protected by the Federal Confidentiality of Alcohol and Drug Abuse Patient Records regulations: The Federal rules restrict any use of the information to criminally investigate or prosecute any alcohol or drug abuse patient.[facility] the event this information is protected by the Federal Confidentiality of Alcohol and Drug Abuse Patient Records regulations: The Federal rules restrict any use of the information to criminally investigate or prosecute any alcohol or drug abuse patient.[facility] Institute[facility] the event this information is protected by the Federal Confidentiality of Alcohol and Drug Abuse Patient Records regulations: The Federal rules restrict any use of the information to criminally investigate or prosecute any alcohol or drug abuse patient.[facility] Institute[facility] the event this information is protected by the Federal Confidentiality of Alcohol and Drug Abuse Patient Records regulations: The Federal rules restrict any use of the information to criminally investigate or prosecute any alcohol or drug abuse patient.[facility] InstituteIn the event this information is protected by the Federal Confidentiality of Alcohol and Drug Abuse Patient Records regulations: The Federal rules restrict any use of the information to criminally investigate or prosecute any alcohol or drug abuse patient.[facility] Institute[facility] the event this information is protected by the Federal Confidentiality of Alcohol and Drug Abuse Patient Records regulations: The Federal rules restrict any use of the information to criminally investigate or prosecute any alcohol or drug abuse patient.[facility] Institute[facility] the event this information is protected by the Federal Confidentiality of Alcohol and Drug Abuse Patient Records regulations: The Federal rules restrict any use of the information to criminally investigate or prosecute any alcohol or drug abuse patient.[facility] Institute[facility] the event this information is protected by the Federal Confidentiality of Alcohol and Drug Abuse Patient Records regulations: The Federal rules restrict any use of the information to criminally investigate or prosecute any alcohol or drug abuse patient.[facility] Institute[facility] the event this information is protected by the Federal Confidentiality of Alcohol and Drug Abuse Patient Records regulations: The Federal rules restrict any use of the information to criminally investigate or prosecute any alcohol or drug abuse patient.[facility] Reason for Visit (unrecogniz ed section and content) Reason Comments Future Appointment Reason Comments Care Reason Onset Date Comments Care 02/16/2023 Reason Comments US Specialty Diagnoses / Procedures Referred By Corry t Referred To Contact [facility] Diagnoses with care elsewhere, antepartum Procedures OBSTETRIC ULTRASOUND WHI US PREG UTERUS AFTER 1ST TRIMEST GESTATION Jasmin Núñez MD [address] [place] [address] [facility] [address] [place] [address] Referral ID Status Reason Start Date Expiration Date V isits Requested Visits Authorized [id number] Closed Auto-Generate d Referral 01/23/2023 01/23/2024 1 [...] Referred By Contac t Referred To Contact [facility] Diagnoses with uncertain dates, antepartum (HCC) Procedures OBSTETRIC ULTRASOUND WHI US PREG UTERUS AFTER 1ST TRIMEST GESTATION Sherley Adamson APRN.[facility] [address] [place] [address] Phone: tel: fax: [address] [address] Referral ID Status Reason Start Date Expiration Date V isits Requested Visits Authorized [id number] Closed Auto-Generate d Referral 03/31/2025 03/31/2026 1 1 Reason Comments Appointment Reason Onset Date Comments Care 07/21/2025 Specialty Diagnoses / Procedures Referred By Contac t Referred To Contact [facility] Diagnoses screening for malformation using ultrasonics (HCC) Procedures OBSTETRIC ULTRASOUND WHI US PREG UTERUS AFTER 1ST [place] [address] [address] Phone: tel: fax: [address] [address] Referral ID Status Reason Start Date Expiration Date V isits Requested Visits Authorized [id number] Closed Auto-Generate d Referral 07/04/2025 07/04/2026 1 [...] section and content) DATE CREATED AUTHOR 12/07/2024 [facility] DATE CREATED AUTHOR AUTHOR'S ORGANIZ ATION 08/22/2025 [facility] DATE CREATED AUTHOR AUTHOR'S ORGANIZ ATION 09/24/2025 [facility] FOR RECORDS PERTAINING TO PATIENTS WHO ARE [...] BE BASED ON THE PRIMARY CLINICAL RECORDS. [employer] provides no warranty or guarantee of the accuracy or completeness of information in this document.
[2025-11-14] MEDS: Oxytocin 15 Units/NS 250ml 15 UNITS/250 ML IV.SOLN 334 UNITS IV (02:17)
--- NOTE | 2025-11-14 02:19 | PCM.HP.OB ---
HPI - General General Date of Admission: 11/14/25 HPI Narrative SEGUN DE LA CRUZ, is a 35 F @ 40.2 weeks who presents in active labor PFSH PFS Medical History (Updated 11/14/25 @ 02:[address] Otilia Isaacs MD) (spontaneous vaginal delivery) Allergy/AdvReac Type Severity Reaction Status Date / Time No Known Allergies Allergy Verified 11/14/25 01:58 History Elective abortions Hx Para 3 Spontaneous abortions Hx # Term Pregnancies Ectopic pregnancies Hx # Pregnancies Multiple births # of living children NST FHR Rate Baby A Baseline: 145 Variability:: Moderate Accelerations:: 15 x 15 Decelerations:: None NST Reactive:: Yes FHR Category:: Category I Uterine Activity:: Q5 Vital Signs Vital Signs Vital Signs: Weight Weight: 97.069 kg Body Mass Index (BMI) 30.7 Physical Exam Narrative /0 AROM performed- scant clear fluid Const alert and oriented x3 General Appearance: cooperative HEENT normocephalic GI GI Narrative: Gravid, non tender to palpation. OB / External & Speculum: external exam normal Extremity normal to inspection Skin no rashes or lesions noted Neuro oriented x3 and CN's II-XII intact bilaterally Psych Appearance: grossly normal Labs Labs Labs: Blood Type B POSITIVE Antibody Screen NEGATIVE Hct, (37-47) 36.4 % L Hgb, (12.0-15.0) 12.3 g/dL Syphilis Total Ab Non-reactive Rhogam given: No Assessment & Plan (1) 40 weeks gestation of : (2) Supervision of normal : (3) Uterine contractions: PLAN: Plan Admit to L&D [facility] FHR/TOCO Epidural if requested for pain Monitor VS Anticipate
[2025-11-14 02:22] LABS: Hematocrit 36.8 % (37-47); Hemoglobin 12.5 g/dL (12.0-15.0); Immature Granulocytes Count 0.060 X10^3/uL (0.0-0.0); Mean Corp Hgb Conc 34.0 g/dL (32-36); Mean Corpuscular Volume 82.9 fL (81-99); Mean Platelet Vol. 10.5 fl (6.2-12.0); NRBC Flagged by Analyzer 0 % (0-5); Platelet Count 253 K/mm3 (150-450); RBC Distribution Width CV 13.0 % (11.6-14.6); RBC Distribution Width SD 39.0 fl (35.1-43.9); Red Blood Count 4.44 M/mm3 (4.2-5.4); White Blood Count 12.2 K/mm3 (4.4-11.0)
--- NOTE | 2025-11-14 02:22 | OB.VAGDELI_ITS ---
Maternal Data Information Gestational age: 40.2 Vaginal Delivery Maternal Presentation Maternal Presentation: Active Labor Vaginal Delivery Information Procedure Performed: Spontaneous Vaginal Delivery Surgeon/Practitioner: Otilia Isaacs Date of Procedure: 11/14/25 Pre-Procedure Diagnosis: Active labor, 40 weeks gestation Post-Procedure Diagnosis: same, live male Type of anesthesia: None Estimated Blood Loss: 25cc Time of Delivery: 02:10 Findings Description of procedure: Patient progressed to fully dilated. head delivered then with gentle t raction down the anterior and posterior shoulders and the rest the 's body without delay. The was placed on the mother's chest for immediate skin the skin. was vigorous at time of delivery. Delayed cord clamping was performed. Cord was clamped and cut. Pitocin was started and the placenta delivered intact without complication. No perineal or vaginal lacerations were appreciated. Fundus was firm. 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
[2025-11-14 02:51] LABS: Syphilis Antibodies Nonreactive (Nonreactive)
--- NOTE | 2025-11-14 12:30 | PN.OBGYN_ITS ---
Subjective Subjective Doing well. Ambulating and voiding without difficulty. Mild lochia. Breast feeding. Objective Data Objective Data Vital Signs: Vital Signs Temp Pulse Resp BP Pulse Ox O2 Del Method 98.1 F 78 16 107/70 94 Room Air 11/14/25 12:15 11/14/25 12:16 11/14/25 12:15 11/14/25 12:16 11/14/25 12:16 11/14/25 12:15 Oxygen Delivery Method Room Air Weight: 97.069 kg Body Mass Index (BMI) 30.7 Intake & Output: Intake and Output for Last 24 Hours 11/12/25 11/13/25 11/14/25 23:59 23:59 23:59 Intake Total 250 / 250 Output Total 925 / 925 Balance -675 / -675 Lab / Micro Data 11/14/25 02:00 Labs: Laboratory Results - last 24 hr 11/14/25 02:00: WBC 12.2 H, RBC 4.44, Hgb 12.5, Hct 36.8 L, MCV 82.9, MCH 28.2, MCHC 34.0, RDW Std Deviation 39.0, RDW Coeff of Jesus 13.0, Plt Count 253, MPV 10.5, Immature Gran % (Auto) 0.500, Neut % (Auto) 73.5 H, Lymph % (Auto) 19.5, [place] % (Auto) 5.8, Eos % (Auto) 0.5, Baso % (Auto) 0.2, Absolute Neuts (auto) 9.0 H, Absolute Lymphs (auto) 2.37, Nucleated RBC % 0, Syphilis Total Ab Nonreactive, Blood Type B POSITIVE, Antibody Screen NEGATIVE ROS Constitutional Constitutional: Denies headache(s) Cardiovascular Cardiovascular: Denies chest pain or dyspnea Gastrointestinal Gastrointestinal: Denies nausea or vomiting Genitourinary Genitourinary: Denies dysuria Physical Exam Const alert, oriented x3 and no apparent distress General Appearance: cooperative and comfortable Eyes PERRL and EOMs intact bilaterally Resp normal respiratory effort GI soft to palpation and non-tender Narrative: Fundus firm, below umbilicus. Uterus Palpation: uterus fundus firm ( below umbilicus) Extremity normal to inspection and full ROM Neuro oriented x3 and CN's II-XII intact bilaterally Psych mental status grossly normal Assessment & Plan (1) 40 weeks gestation of : (2) (spontaneous vaginal delivery): PLAN: Plan Patient want to be discharged before 24 hours. Is planning to return tomorrow for 24 hour testing
--- NOTE | 2025-11-14 12:31 | PCM.DC.SUM ---
Providers Date of Admission: 11/14/25 Date of Discharge: 11/14/25 Primary Care Physician: Marni Primary Care Phys Reason For Visit: VAG Diagnosis Discharge Diagnosis (1) 40 weeks gestation of : Status: Acute Code(s): Z3A.40 - 40 weeks gestation of (2) (spontaneous vaginal delivery): Status: Acute Code(s): O80 - Encounter for full-term uncomplicated delivery Plan Patient want to be discharged before 24 hours. Is planning to return tomorrow for 24 hour testing Hospital Course Operations None Procedures None Summary of Care Provided Minutes Spent on Discharge: 20 Hospital Course: . Breast feeding. Discharge before 24 hours Weight / BMI Weight Weight: 97.069 kg Body Mass Index (BMI) 30.7 PRE- weight 86.183 kg PRE- Body Mass Index 27.2 (BMI) ABG / Lab / Microbiology Data 11/14/25 02:00 Laboratory: Laboratory Results - last 24 hr 11/14/25 02:00: WBC 12.2 H, RBC 4.44, Hgb 12.5, Hct 36.8 L, MCV 82.9, MCH 28.2, MCHC 34.0, RDW Std Deviation 39.0, RDW Coeff of Jesus 13.0, Plt Count 253, MPV 10.5, Immature Gran % (Auto) 0.500, Neut % (Auto) 73.5 H, Lymph % (Auto) 19.5, [place] % (Auto) 5.8, Eos % (Auto) 0.5, Baso % (Auto) 0.2, Absolute Neuts (auto) 9.0 H, Absolute Lymphs (auto) 2.37, Nucleated RBC % 0, Syphilis Total Ab Nonreactive, Blood Type B POSITIVE, Antibody Screen NEGATIVE D/C Instructions May resume sexual activity in: 6 weeks DC O2, CPAP, BIPAP Needs Home O2 Discharge instructions: No Please Follow Up With: Kinsey Hernandez MD When: Follow up with our office in 1-2 and 6 weeks or as needed. [phone] Meaningful Use Info Meaningful Use Meaningful Use Diagnoses (Choose all that apply): None applicable Discharge Plan Admission Admit Date/Time: 11/14/25 01:42 Primary Reason for Your Visit: labor Attending Provider: Otilia Isaacs Primary Care Provider: Care Physician,No Primary Discharge Orders/Prescriptions Referrals / Follow Up: Care Physician,No Primary [Primary Care Provider, Medical] Disposition Disposition (needs filled in before D/C Order can be placed): Home, Self Care
== END 2025-11-14 15:35 | disposition home or self-care (01) | DRG 807 ==
LOC: WP 01:45
PROVIDERS: Admitting Provider Obstetrics & Gynecology; Referring Provider Obstetrics & Gynecology; Visit Provider Obstetrics & Gynecology
DX: O80 Encounter for full-term uncomplicated delivery (principal); Z37.0 Single live birth; Z3A.40 40 weeks gestation of pregnancy
CPT/HCPCS: 59025; 59050; 85025; 86780; 86850; 86900; 86901; 99221; G0378